=== PATIENT | female | born 1945 | race Caucasian/White ===

== ENCOUNTER 2022-02-04 12:56 | Outpatient (CLI) | payer MEDICARE, OTHER, SELFPAY ==
--- OUTSIDE RECORDS SUMMARY | 2022-02-04 12:59 | XMS_ITS | Encounter Summary ---
:1945 Author Organization [facility] Address [address] [place] [address] Care Team Providers Name Role Phone Abida Martell MD Primary Care Provider Reason for Visit Procedure/Equipment (Routine) - Incomplete Specialty Diagnoses / Procedures Referred By Contact Refer red To Contact Diagnoses Right shoulder pain, unspecified chronicity Saeed Ellis MD Procedures XR Shoulder Rt 2+ Views [address] [place], [place] [address] Referral ID Status Reason Start Date Expiration Date Visits V isits Requested Authorized [id number] Incomplete 01/24/2019 04/24/2020 1 1 Encounter Details Date Type Department Care Team Description 01/24/2019 [facility]illary [facility] Saeed Ellis MD Right shoulder Procedure [address] D r pain, unspecified Drive [place], [place] [address] [phone] Social History Tobacco Use Types Packs/Day Years Used Date Smoking Tobacco: Former Cigarettes Quit : 08/13/2013 Smokeless Tobacco: Never Alcohol Use Standard Drinks/Week Comments Yes 7 (1 standard drink = 0.6 oz pure alcoho l) Sex Assigned at Date Recorded Not on file documented as of this encounter Plan of Treatment Not on filedocumented as of this encounter Procedures Procedure Name Priority Date/Time Associated Diagnosis Comme nts XR SHOULDER RT 2+ Routine 01/24/2019 1:44 PM Right shoulder pa in, Results for this VIEWS CDT unspecified procedure are i n chronicity the results section. documented in this encounter Results XR Shoulder Rt 2+ Views (01/24/2019 1:44 PM CDT) Anatomical Region Laterality Modality Upper Extremity, Shoulder Digital Radiog cleo Specimen (Source) Anatomical Location Collection Method / Collectio n Time Received Time / Laterality Volume Narrative 01/28/2019 12:37 PM CDT Radiographs of the right shoulder - 3 views (01/24/19): Demonstrates a healed clavicle fracture. She has significant prominence to that fracture. She has mild AC arthrosis and mild glenohumeral arthrosis. Saeed Ellis MD RAD GD documented in this encounter Visit Diagnoses Diagnosis Right shoulder pain, unspecified chronic ity documented in this encounter Care Teams Water Manager Relationship Specialty Start Date End Date Abida Martell MD PCP - General [address] [place] [address] documented as of this encounter
--- OUTSIDE RECORDS SUMMARY | 2022-02-04 12:59 | XMS_ITS | Encounter Summary ---
:1945 Author Organization [facility] Address [address] [place] [address] Care Team Providers Name Role Phone Abida Martell MD Primary Care Provider Reason for Referral (Routine) - Closed Specialty Diagnoses / Procedures Referred By Contact Refer red To Contact Diagnoses AC joint arthropathy Saeed Ellis MD Procedures Triamcinolone Acet Inj Nos: (per 10 mg) [address] [facility] [place], [place] [address] 1 Referral ID Status Reason Start Date Expiration Date Visits Requ ested Visits Authorized [id number] Closed 01/24/2019 04/24/2020 1 1 Procedure/Equipment (Routine) - Incomplete Specialty Diagnoses / Procedures Referred By Contact Refer red To Contact Diagnoses Right shoulder pain, unspecified chronicity Saeed Ellis MD Procedures XR Shoulder Rt 2+ Views [address] [place] [address] [place], [place] [address] Referral ID Status Reason Start Date Expiration Date Visits V isits Requested Authorized [id number] Incomplete 01/24/2019 04/24/2020 1 1 Reason for Visit Reason Comments Shoulder Problem right Encounter Details Date Type Department Care Team Description 01/24/2019 Office Visit [facility] Saeed Ellis MD AC joint arthropathy (Primary Dx); [facility] [address] Right shoulder pain, unspecified chronic ity [address] [facility] [place] [id number] [phone] (Wo rk) Social History Tobacco Use Types Packs/Day Years Used Date Smoking Tobacco: Former Cigarettes Quit : 08/13/2013 Smokeless Tobacco: Never Alcohol Use Standard Drinks/Week Comments Yes 7 (1 standard drink = 0.6 oz pure alcoho l) Sex Assigned at Date Recorded Not on file documented as of this encounter Last Filed Vital Signs Vital Sign Reading Time Taken Comments Blood Pressure - - Pulse - - Temperature - - Respiratory Rate - - Oxygen Saturation - - Inhaled Oxygen Concentration - - Weight 70.3 kg (155 lb) 01/24/2019 1:01 PM CDT Height 161.3 cm (5' 3.5) 01/24/2019 1:01 PM CDT Body Mass Index 27.03 01/24/2019 1:01 PM CDT documented in this encounter Patient Instructions Patient InstructionsCherry Obrien - 01/24/2019 1:[address] Saeed Ellis MD Orthopaedic Surgeon Ribbon Inker: Cherry Obrien Please call Cherry for all administrative questions at [phone] Orthopaedic Software Lead: JOSELO Carmona LPN Please contact Nancy for all medical questions at [phone] Medication Requests: Prescriptions are not filled on Weekends or on Weekdays after 3:00PM For all medication refills: Request a refill using YesWeAd[facility] or contact your Pharmacy The right shoulder was injected with Kenalog-40 and lidocaine. Avoid Strenuous Activity for the remainder of the day and avoid activities that cause pain for one to two weeks following the injection. Signs and Symptoms to watch for: If you have any redness, warmth or increasing pain at the site of the injection or develop a fever, please call [phone]..You've just had a steroid (cortisone) injection: Steroid injections are among the most frequently used treatments in orthopedics. Steroid injections are used for a wide range of conditions from arthritis, to bursitis, to tennis elbow, etc. The two most common side-effects of steroid shots called ???steroid flare??? and ???steroid flush. Steroid flare can cause an increase in symptoms in the first 24-48 hours after a steroid injection. This will usually subside within a few days, and is a cause from the additional fluid in your joint, and the trauma to the joint lining from the injection. This pain usually subsides quickly and can be aided with an ice pack and over the counter anti-inflammatory medication. Steroid flush is a flushing sensation and redness of their face. This reaction is more common in women, but can occur in men as well, and is seen into up to 15 percent of patients. This can begin within a few hours of the injection and may last for a few days. It is not dangerous, and will resolve itself. Diabetic patients also can have their blood sugar levels affected. Patients with diabetes should carefully monitor their blood sugar as steroid can cause a temporary rise in their levels. Patients taking insulin should be especially careful, checking their blood sugar often and adjusting the insulin doses, if necessary. Steroid injections can only be repeated every 3 or 4 months. For some conditions there may also be alimited total number of times it is safe to repeat an injection. RISKS: Infection ?? Whenever there is a break in the skin, like when a needle is used to administer steroid, there domo chance of infection this is very unlikely to happen, usually would occur days after the injection.Signs and symptoms to watch for: fever, streaking redness, pus, drainage, foul odor, localized redness that continues to get worse, come to the office if symptoms are recognized during business hours, or proceed to the emergency room if symptoms are recognized after office hours. Skin Pigment Changes ?? Patients should also be aware that steroid may cause skin around the injection site to lighten. This is not harmful or long lasting. Loss of Fatty Tissue ?? This is one reason we limit the number of steroid injections administered. High doses of steroid can have detrimental effects on some tissues in the body, though due to the dosage we use the risk isextremely rare. When injected into fatty tissue, steroid can lead to a problem called fat atrophy. Fat atrophy causes loss of fatty tissue, which can lead to dimpling of the skin or the thinning out offat. Skin will feel thin. Patients who get steroid injections in the heel to treat plantar fasciitismay find walking painful as fat that usually cushions their steps may thin out. Tendon Rupture ?? Steroid can also cause weakening of tendons. This is one reason to limit the number of steroid injections administered. Thank you for enrolling in [facility]. Please follow the instructions below to securely access your online medical record. [facility] allows you to send messages to your doctor, view your test results, renewyour prescriptions, schedule appointments, and more. How Do I Sign Up? 1. In your Internet browser, go to [email or web address] 2. Click on the Enter activation code link under the New User? section. You will see the Activate your account! page. 3. Enter your activation code exactly as it appears below. You will not need to use this code after you???ve completed the sign-up process. If you do not sign up before the expiration date, you must request a new code. Activation Code: [email or web address] Expires: 02/23/2019 1:58 PM 4. Enter your last name and date of (mm/dd/yyyy) as indicated, then click Continue. You will be taken to the Let's set up your account page. 5. Create a username. This will be your [facility] login ID and cannot be changed, so think of one thatis secure and easy to remember. 6. Create a password. You can change your password at any time. 7. Enter your e-mail address. You will receive e-mail notification when new information is availablein [facility]. 8. Select your Security Questions and enter your answers. These can be used at a later time if you forget your password. 9. Check the box to accept the terms and conditions. Click Create your account. You can now view your medical record. Additional Information If you have questions, you can call [phone] to talk to our [facility] staff. Remember, [facility] is NOT to be used for urgent needs. For medical emergencies, dial 911. documented in this encounter Progress Notes Saeed Ellis MD - 01/24/2019 1:00 PM CDT Kathy Barajas [id number] 1945 [facility] Consultation 01/24/2019 Chief Complaint: Right Shoulder Pain History of Present Illness: Kathy Barajas is a 74 y.o. right hand dominant female who presents for initial evaluation of right shoulder pain. There is no history of trauma or injury. Five or six years ago she was thrown off a horse and had a clavicle fracture. That went on to heal uneventfully. She has had right shoulder pain for 2-3 years. She is not sure if it is related to the clavicle fracture. Previously she has had some injections in the shoulder with success. It bothers her with overhead activities. She cannot sleep onthat side. She has no real weakness in her shoulder, but certain reaching activities do create sharppain. She cannot reach across her body without getting right shoulder pain. The intake sheet was reviewed with the patient. This was up-to-date including medications, past surgical history and social history, as well as risk factors, complete review of systems and family health history and scanned into the electronic medical record. Physical Exam: General: The patient is a pleasant, cooperative female who appears much younger than her stated age of 74. Neuro: Answers questions appropriately. Alert and oriented x 3. Skin: Cool to touch. No erythema, ecchymosis, or lesions. Neck: (+) Some limitation of neck extension. Good flexion and llna-fa-zgeh rotation. Non tender in the paracervical musculature or the trapezius. Right Shoulder: (+) Tenderness over her right AC joint. Medial to that she has significant bony prominence from her healed clavicle fracture. Symmetric forward flexion. Symmetric external rotation. Demonstrates very good external rotation and abduction rotator cuff strength without any apparent pain. (+) Adduction across her body causes pain and localizes to her AC joint. Negative Grey Eagle's test. No click or clunk in the subacromial space. Imaging: Radiographs of the right shoulder - 3 views (01/24/19): Demonstrates a healed clavicle fracture. She has significant prominence to that fracture. She has mild AC arthrosis and mild glenohumeral arthrosis. I ordered and independently reviewed and interpreted the imaging studies above; the results were discussed with the patient. Assessment: Diagnosis and Associated Orders ICD-10-CM 1. AC joint arthropathy M19.019 Inject/Asp Major Joint/Bursa Hip Knee Shoulder Triamcinolone Acet Inj Nos: (per 10 mg) 2. Right shoulder pain, unspecified chronicity M25.511 XR Shoulder Rt 2+ Views Painful right AC joint arthrosis. Plan: I discussed with the patient, in detail, the risks and benefits associated with the different treatment options available to them including conservative management (rest, activity modification, and oral pain medication), physical therapy, steroid injection versus visco supplementation, and surgical int ervention. The patient voiced understanding of the information discussed, and at this time, elects to proceed with an injection. She will let us know of her progress. Procedure: Right Shoulder AC Joint Injection After sterile preparation, the patient's right shoulder AC joint was injected with 0.5 mL of triamcinolone 40 mg/mL and 0.5 mL of 1% lidocaine. The patient tolerated the procedure without difficulty. Scribe Disclosure: Scribed for Saeed Ellis MD by Gadiel Vieyra medical transcription supervisor. I, Saeed Ellis MD, have personally reviewed and agree with the information entered by the scribe. Saeed Ellis MD documented in this encounter Plan of Treatment Not on filedocumented as of this encounter Results XR Shoulder Rt 2+ [...] documented in this encounter Visit Diagnoses Diagnosis AC joint arthropathy - Primary Unspecified disorder of shoulder joint Right shoulder pain, unspecified chronic ity Right shoulder pain, unspecified chronic ity documented in this encounter Care Teams Cyber Security Systems Engineer Relationship Specialty Start Date End Date Abida Martell MD PCP - General 11/28/12 [address] [place] [address] (work) documented as of this encounter
--- OUTSIDE RECORDS SUMMARY | 2022-02-04 12:59 | XMS_ITS | Encounter Summary ---
:1945 Author Organization [facility] Address [address] [address] Care Team Providers Name Role Phone Abida Martell MD Primary Care Provider Encounter Details Date Type Department Care Team Description 08/16/2019 Hospital Encounter [place] [facility] [address] [place] [address] Social History Tobacco Use Types Packs/Day Years Used Date Smoking Tobacco: Former Cigarettes Quit : 08/13/2013 Smokeless Tobacco: Never Alcohol Use Standard Drinks/Week Comments Yes 7 (1 standard drink = 0.6 oz pure alcoho l) Sex Assigned at Date Recorded Not on file documented as of this encounter Medications at Time of Discharge Medication Sig Dispensed Refills Start Date End Date ATENolol (AKA TENORMIN) 25 MG Take by mouth 0 tablet daily (every 24 hours). hydrochlorothiazide 12.5 MG Indications: PN: 0 capsule HYDROcodone-acetaminophen Take 1-2 tablets 40 tablet 0 07/26 (NORCO) 5-325 MG tablet by mouth every 6 hours as needed for Pain. Biotin 10 MG CAPS Take by mouth. 0 08/15/2015 Calcium Carbonate-Vitamin D Take by mouth. 0 12/2609/09/2021 (CALCIUM 600+D OR) Cholecalciferol 2000 UNITS Take by mouth. 0 03/1809/09/2021 documented as of this encounter Plan of Treatment Not on filedocumented as of this encounter Visit Diagnoses Not on filedocumented in this encounter Care Teams Clay Thrower Relationship Specialty Start Date End Date Abida Martell MD PCP - General 8/5/13 [address] [facility] [address] documented as of this encounter
--- OUTSIDE RECORDS SUMMARY | 2022-02-04 12:59 | XMS_ITS | Encounter Summary ---
:1945 Author [facility] Address [address] [facility] [place] [address] Care Team Providers Name Role Phone Abida Martell MD Primary Care Provider Reason for Referral (Routine) - New Request Specialty Diagnoses / Procedures Referred By Contact Refer red To Contact Diagnoses Chronic pain of right ankle Saeed Ellis MD Procedures Triamcinolone Acet Inj Nos: (per 10 mg) [address] [place] [address] Referral ID Status Reason Start Date Expiration Date Visits V isits Requested Authorized [id number] New Request 09/10/2021 12/10/2022 1 1 Procedure/Equipment (Routine) - Incomplete Specialty Diagnoses / Procedures Referred By Contact Refer red To Contact Diagnoses Glenohumeral arthritis Saeed Ellis MD Procedures FL Injection Shoulder Rt [address] [place], [place] [address] Referral ID Status Reason Start Date Expiration Date Visits V isits Requested Authorized [id number] Incomplete 09/09/2021 12/09/2022 1 1 Procedure/Equipment (Routine) - Incomplete Specialty Diagnoses / Procedures Referred By Contact Refer red To Contact Diagnoses Chronic pain of right ankle Saeed Ellis MD Procedures XR Ankle Rt 3 Views [address] [place] [address] Referral ID Status Reason Start Date Expiration Date Visits V isits Requested Authorized [id number] Incomplete 09/09/2021 12/09/2022 1 1 Procedure/Equipment (Routine) - Incomplete Specialty Diagnoses / Procedures Referred By Contact Refer red To Contact Diagnoses Chronic pain of both shoulders Saeed Ellis MD Procedures XR Shoulder Rt 2+ Views [address] [place] [address] [place] [address] Referral ID Status Reason Start Date Expiration Date Visits V isits Requested Authorized [id number] Incomplete 09/09/2021 12/09/2022 1 1 Procedure/Equipment (Routine) - Incomplete Specialty Diagnoses / Procedures Referred By Contact Refer red To Contact Diagnoses Chronic pain of both shoulders Saeed Ellis MD Procedures XR Shoulder Lt 2+ Views [address] [place] [address] [place] [address] Referral ID Status Reason Start Date Expiration Date Visits V isits Requested Authorized [id number] Incomplete 09/09/2021 12/09/2022 1 1 Reason for Visit Reason Comments Shoulder Problem Bilateral Encounter Details Date Type Department Care Team Description 09/09/2021 Office Visit [facility] Saeed Ellis MD Shoulder arthritis (Primary Dx); [facility] [address] [place] [address] Post-traumatic osteoarthritis of right a nkle; [address] [place], [place] Chronic pain of both shoulde rs; [place] [address] Chronic pain of right ankle; [address] Glenohumeral arthritis Social History Tobacco Use Types Packs/Day Years Used Date Smoking Tobacco: Former Cigarettes Quit : 08/13/2013 Smokeless Tobacco: Never Alcohol Use Standard Drinks/Week Comments Yes 7 (1 standard drink = 0.6 oz pure alcoho l) Sex Assigned at Date Recorded Not on file documented as of this encounter Patient Instructions Patient InstructionsMary Carmen Schmid - 09/09/2021 10:[address] Saeed Ellis MD Orthopaedic Surgeon Medication Requests: Prescriptions are not filled on weekends or on weekdays after 3:00 PM The right ankle was injected with Kenalog-40 and lidocaine. Avoid Strenuous Activity for the remainder of the day and avoid activities that cause pain for one to two weeks following the injection. Signs and Symptoms to watch for: If you have any redness, warmth or increasing pain at the site of the injection or develop a fever, please call [phone] You've just had a steroid (cortisone) injection: Steroid [...] safe to repeat an injection. RISKS: Infection Whenever there is a break in the skin, like when a needle is used to administer steroid, there is a chance of infection this is very unlikely to happen, usually would occur days after the injection. Signs and symptoms to watch for: fever, streaking redness, pus, drainage, foul odor, localized redness that continues to get worse, come to the office if symptoms are recognized during business hours, or proceed to the emergency room if symptoms are recognized after office hours. Skin Pigment Changes Patients should also be aware that steroid may cause skin around the injection site to lighten. Thisis not harmful or long lasting. Loss of Fatty Tissue This is one reason we limit the number of steroid injections administered. High doses of steroid canhave detrimental effects on some tissues in the body, though due to the dosage we use the risk is extremely rare. When injected into fatty tissue, steroid can lead to a problem called fat atrophy. Fat atrophy causes loss of fatty tissue, which can lead to dimpling of the skin or the thinning out of fat. Skin will feel thin. Patients who get steroid injections in the heel to treat plantar fasciitis may find walking painful as fat that usually cushions their steps may thin out. Tendon Rupture Steroid can also cause weakening of tendons. This is one reason to limit the number of steroid injections administered. documented in this encounter Progress Notes Saeed Ellis MD - 09/09/2021 10:10 AM CDT Kathy Barajas [id number] 1945 Orthopaedic Surgery Follow-Up 09/09/2021 History of Present Illness: Kathy Barajas is a 76 y.o. female who presents to me today for follow-up evaluation of both shoulders. She would also like me to evaluate her right ankle. The patient has had shoulder pain, felt to be because of AC arthrosis, and she has had a couple of injections in her right shoulder AC joint with good relief. The last injection was on 11/13/2019. She reports continued shoulder pain. She is having difficulty reaching behind her back and doing certain activities and she gets a paid deep in her shoulder. She does not feel it is the same thing that she had previously. Her right shoulder is much worse than the left but she has some achiness in the left shoulder that keeps her awake at nighttime. She denies shooting pains down into either upper extremity and has no numbness, weakness, or tingling. The patient is also status post ORIF of her right ankle and in the past, we removed a syndesmosis screw. She reports some clicking in that right ankle, which is very intermittent. It happens when she twists, on occasion, and it can be tender and sore for her. There is no actual locking symptomatology but she gets a painful click. She has not noticed swelling and she has no weakness. Physical Exam: General: The patient is in no acute distress. Neuro: Answers questions appropriately. Alert and oriented x 3. Skin: Cool to touch. No erythema, ecchymosis, or lesions. Bilateral Shoulder: On examination today, she has a normal appearance to both shoulders. Prominent distal clavicle on the right more so than on the left. No specific tenderness over her AC joint today.She has full symmetric forward flexion and symmetric external rotation but some limitation of internal rotation on the right. Excellent rotator cuff strength to resisted external rotation and resisted abduction. Negative belly press. Negative lift-off test bilaterally. Imaging: Radiographs of the right ankle - 3 views (09/09/21): AP, lateral, and mortise views demonstrate some screws in the distal tibia consistent with an ORIF plateau-type, tibial plafond-type fracture. She also has screws and a plate in her fibula. No dramaticspurs present in the ankle joint itself and no significant joint space narrowing. Radiographs of the left shoulder - 3 views (09/09/21): AP, outlet, and axillary lateral demonstrate early glenohumeral degenerative changes with mild changes at her AC joint. There are no acute changes noted. Radiographs of the right shoulder - 3 views (09/09/21): AP, outlet, and axillary lateral demonstrate moderate glenohumeral arthrosis changes as well as AC arthrosis on the right. There are no acute changes noted. I ordered and independently reviewed and interpreted the imaging studies above; the results were discussed with the patient. Assessment: Diagnosis and Associated Orders ICD-10-CM 1. Shoulder arthritis M19.019 bilateral, right greater than left 2. Post-traumatic osteoarthritis of right ankle M19.171 3. Chronic pain of both shoulders M25.511 XR Shoulder Lt 2+ Views G89.29 XR Shoulder Rt 2+ Views M25.512 4. Chronic pain of right ankle M25.571 XR Ankle Rt 3 Views G89.29 5. Glenohumeral arthritis M19.019 FL Injection Shoulder Rt Plan: 1. With respect to her shoulders, we talked about the role of possible intraarticular injection versus injection of her AC joint and she was interested in trying an intraarticular injection on the right. She will be sent, therefore, for an intraarticular right shoulder injection under fluoroscopy and she will let us know of her progress. 2. We discussed options and I suggested an injection of her right ankle and she agreed. If she does not get relief from the catching and clicking, I would probably refer her on to one of our foot and ankle specialists for further evaluation. Procedure: Right Ankle Cortisone Injection: After sterile preparation, the patient's right ankle was injected with 1mL of Kenalog 40mg/mL and 3mL of 1% lidocaine. She tolerated the procedure well. Scribe Disclosure: ITierra, am serving as a scribe to document services personally performed by Saeed Ellis MD at this visit, based upon the provider's statements to me. All documentation has been reviewed by the aforementioned provider prior to being entered into the official medical record. Portions of this medical record were completed by a scribe. UPON MY REVIEW AND AUTHENTICATION BY ELECTRONIC SIGNATURE, this confirms (a) I performed the applicable clinical services, and (b) the recordis accurate. Saeed Ellis MD documented in this encounter Plan of Treatment Not on filedocumented as of this encounter Results FL Injection Shoulder Rt (09/25/2021 1:44 PM CDT) Anatomical Region Laterality Modality Upper Extremity, Shoulder Radiographic I maging Specimen (Source) Anatomical Collection Method Collection Time Re ceived Time Location / / Volume Laterality 09/25/2021 1:09 PM CDT Impressions 09/25/2021 2:30 PM CDT FINDINGS: The procedure, goals, risks and benefits of the procedure were discussed with the patient, who gave full written and verbal consent to proceed. The location of the procedure was confirmed, the skin initialed, and pause for cause per formed. Using sterile technique, local anesthesia and fluoroscopic guidance a 22 gauge needle was advanced into the right shoulder glenohumeral joint. Intraarticu lar location of the needle tip was confi rmed with the injection of 1 mL of Isovue. Subsequently, 40 mg of triamcinolone (40 mg/mL), and 5 mL 0.5% ropivacaine was administered without complication. The patient rated their pain as a 6/10 p rior to the injection, and 0/10 immediately following the injection. Procedure Note Salima Gamino PA-C - 09/25/2021Format ting of this note might be different from the original. IMPRESSION FINDINGS: The procedure, goals, risks an d benefits of the procedure were discussed with the patient, who gave full written and verbal consent to proceed. The location of the procedure was confirmed, the skin initialed, and pause for cause performed. Using rajinder rile technique, local anesthesia and fluoroscopic guidance a 22 gauge needle was advanced into the right shoulder glenohumeral joint. Intraarticular location of the needle tip was confirmed with the injection of 1 mL of Isovue. Subsequently, 40 mg of triamcinolone (40 mg/mL), and 5 mL 0.5% ropivacaine was administered without complication. The patient rated their pain as a 6/10 p rior to the injection, and 0/10 immediately following the injection. Saeed Ellis MD RAD FL XR Shoulder Rt 2+ Views (09/09/2021 10:19 AM CDT) Anatomical Region Laterality Modality Upper Extremity, Shoulder Digital Radiog cleo Specimen (Source) Anatomical Location Collection Method / Collectio n Time Received Time / Laterality Volume Narrative 09/15/2021 2:34 PM CDT Radiographs of the left shoulder - 3 views (09/09/21): AP, outlet, and axillary lateral demonst rate early glenohumeral degenerative changes with mild changes a t her AC joint. There are no acute changes noted. ?? Radiographs of the right shoulder - 3 vi ews (09/09/21): AP, outlet, and axillary lateral demonst rate moderate glenohumeral arthrosis changes as well as AC arthrosi s on the right. There are no acute changes noted. ?? Saeed Ellis MD RAD GD XR Shoulder Lt 2+ Views (09/09/2021 10:19 AM CDT) Anatomical Region Laterality Modality Upper Extremity, Shoulder Digital Radiog cleo Specimen (Source) Anatomical Location Collection Method / Collectio n Time Received Time / Laterality Volume Narrative 09/15/2021 2:34 PM CDT Radiographs of the left shoulder - 3 views (09/09/21): AP, outlet, and axillary lateral demonst rate early glenohumeral degenerative changes with mild changes a t her AC joint. There are no acute changes noted. ?? Radiographs of the right shoulder - 3 vi ews (09/09/21): AP, outlet, and axillary lateral demonst rate moderate glenohumeral arthrosis changes as well as AC arthrosi s on the right. There are no acute changes noted. ?? Saeed HESTER XR Ankle Rt 3 Views (09/09/2021 10:19 AM CDT) Anatomical Region Laterality Modality Lower Extremity, Ankle, Foot & Ankle Dig ital Radiography Specimen (Source) Anatomical Location Collection Method / Collectio n Time Received Time / Laterality Volume Narrative 09/15/2021 2:34 PM CDT Radiographs of the right ankle - 3 views (09/09/21): AP, lateral, and mortise views demonstra te some screws in the distal tibia consistent with an ORIF plateau-type, ti bial plafond-type fracture. She also has screws and a plate in her fibul a. No dramatic spurs present in the ankle joint itself and no significan t joint space narrowing. Saeed HESTER documented in this encounter Visit Diagnoses Diagnosis Shoulder arthritis - Primary Unspecified arthropathy, shoulder region Post-traumatic osteoarthritis of right a nkle Chronic pain of both shoulders Pain in joint, shoulder region Chronic pain of right ankle Glenohumeral arthritis Other specified disorders of shoulder balbir int Chronic pain of both shoulders Pain in joint, shoulder region Chronic pain of right ankle Glenohumeral arthritis Other specified disorders of shoulder balbir int documented in this encounter Care Teams Bsw Relationship Specialty Start Date End Date Abida Martell MD PCP - General 11/[address] [place] [address] documented as of this encounter
--- OUTSIDE RECORDS SUMMARY | 2022-02-04 12:59 | XMS_ITS | Encounter Summary ---
:1945 [facility] Address [address] [place] [address] Care Team Providers Name Role Phone Abida Martell MD Primary Care Provider Reason for Visit Procedure/Equipment (Routine) - Incomplete Specialty Diagnoses / Procedures Referred By Contact Refer red To Contact Diagnoses Glenohumeral arthritis Saeed Ellis MD Procedures FL Injection Shoulder Rt [address] [facility] [place] [address] Referral ID Status Reason Start Date Expiration Date Visits V isits Requested Authorized [id number] Incomplete 09/09/2021 12/09/2022 1 1 Encounter Details Date Type Department Care Team Description 09/25/2021 Ancillary [facility] Saeed Ellis, Glenohumeral Procedure [address] [place] [phone] Social History Tobacco Use Types Packs/Day Years [...] Name Priority Date/Time Associated Diagnosis Comme nts FL INJECTION Routine 09/25/2021 1:44 PM Glenohumeral Results f or this SHOULDER RT CDT arthritis procedure are i n the results section. documented in this encounter Results FL Injection Shoulder Rt [...] and 0/10 immediately following the injection. Saeed HERNANDEZ HI documented in this encounter Visit Diagnoses Diagnosis Glenohumeral arthritis Other specified disorders of shoulder ablbir int documented in this encounter Administered Medications Inactive Administered Medications - up to 3 most recent administrations Medication Order MAR Action Action Date Dose Rate Site iopamidol (ISOVUE-M 200) 41 % Given 09/25/2021 1:10 PM CDT 2 mL intrathecal injection 2 mL 2 mL, Intra-articular, ONCE, On Afua 09/25/21 at 1330, For 1 dose triamcinolone acetonide (KENALOG-40) 40 MG/ML Given 1:10 PM CDT 40 mg injection 40 mg 40 mg, Intracapsular, ONCE, On Afua 09/25/21 at 1330, For 1 dose documented in this encounter Care Teams Stone Finisher Relationship Specialty Start Date End Date Abida Martell MD PCP - General [address] [place] [address] documented as of this encounter
--- OUTSIDE RECORDS SUMMARY | 2022-02-04 12:59 | XMS_ITS | Clinical Summary ---
:1945 Author Organization [facility] Address [address] [place] [address] Care Team Providers Name Role Phone Abida Martell MD Primary Care Provider Source Comments You are receiving this document as you are listed as the primary care provider,follow-up provider, or the patient has been referred to you for consultation.This is in compliance with the Medicare and Medicaid EHR Incentive Program,which states Providers who transition their patient to another setting of careor provider of care or refers their patient to another provider of care shouldprovide summarycare record for each transition of care or referral. Feebbo Allergies Active Allergy Reactions Severity Noted Date Comments Celecoxib Rash 01/23/2013 Lisinopril 01/23/2013 PN: chest press ure Sulfa Antibiotics 11/28/2012 PN: tongue got sore Medications Medication Sig Dispensed Refills Start Date End Date Status ATENolol (AKA TENORMIN) 25 Take by mouth 0 2 Active MG tablet daily (every 24 hours). hydrochlorothiazide 12.5 Indications: 0 08/11/2012 Active MG capsule PN: HYDROcodone-acetaminophen Take 1-2 40 tablet 0 08/15/2015 Active (NORCO) 5-325 MG tablet tablets by mouth every 6 hours as needed for Pain. Active Problems No known active problems Social History Tobacco Use Types Packs/Day Years Used Date Smoking Tobacco: Former Cigarettes Quit : 08/13/2013 Smokeless Tobacco: Never Alcohol Use Standard Drinks/Week Comments Yes 7 (1 standard drink = 0.6 oz pure alcoho l) Sex Assigned at Date Recorded Not on file Last Filed Vital Signs Vital Sign Reading Time Taken Comments Blood Pressure 171/90 01/18/2013 3:17 PM CDT Pulse - - Temperature - - Respiratory Rate - - Oxygen Saturation - - Inhaled Oxygen Concentration - - Weight 70.3 kg (155 lb) 01/24/2019 1:01 PM CDT Height 161.3 cm (5' 3.5) 01/24/2019 1:01 PM CDT Body Mass Index 27.03 01/24/2019 1:01 PM CDT Plan of Treatment Health Maintenance Due Date Last Done Comments Hep C Screening (Preventive 1945 Services) Medicare Annual Wellness 1945 Visit COVID-19 Vaccine (#1) 1945 Dexa 01/11/2009 Influenza (#1) 2021 01/24/2021, 12/15/2019, 02/01/2019, Additional history exists DTaP/Tdap/Td (3 - Tdap) 02/11/2031 02/11/2021, 12/03/2010, 12/22/2004, Additional history exists Pneumococcal 65+ Yrs Completed 12/02/2017, 09/03/2014, 08/15/2008 Zoster/Shingles Completed 05/20/2018, 12/02/2017, 04/22/2012 HepA Aged Out No longer eligib le based on patient 's age to complete this topic HepB Aged Out No longer eligib le based on patient 's age to complete this topic Hib Aged Out No longer eligib le based on patient 's age to complete this topic IPV (Polio) Aged Out No longer eligib le based on patient 's age to complete this topic MCV4 Aged Out No longer eligib le based on patient 's age to complete this topic Insurance Payer Benefit Plan / Subscriber ID Effective Dates Phone Addre ss Type Group MEDICARE MEDICARE MANAGED [id number] 2008-Present [phone] Medicare CARE MEDICA MEDICA MEDICA PRIME [id number] 2018-Present [phone] Medicare SOLUTION Kathy Barajas Personal/Family Self [address] [facility] [place] [address] Care Teams Warehouse Supervisor Relationship Specialty Start Date End Date Abida Martell MD PCP - General 11/28/[address] [facility] [address]
--- OUTSIDE RECORDS SUMMARY | 2022-02-04 12:59 | XMS_ITS | Encounter Summary ---
:1945 Author Organization [facility] Address [address] [place] [address] Care Team Providers Name Role Phone Abida Martell MD Primary Care Provider Reason for Referral (Routine) - Closed Specialty Diagnoses / Procedures Referred By Contact Refer red To Contact Diagnoses AC joint arthropathy Saeed Ellis MD Procedures Triamcinolone Acet Inj Nos: (per 10 mg) [address] [place], [place] [address] Referral ID Status Reason Start Date Expiration Date Visits Requ ested Visits Authorized [id number] Closed 11/13/2019 02/11/2021 1 1 Reason for Visit Reason Comments Shoulder Problem right Encounter Details Date Type Department Care Team Description 11/13/2019 Office Visit [facility] Saeed Ellis MD AC joint arthropathy CENTER [address] [place] [address] (Primary Dx) [address] [place], [place] [phone] (Wo rk) Social History Tobacco Use Types Packs/Day Years Used Date Smoking Tobacco: Former Cigarettes Quit : 08/13/2013 Smokeless Tobacco: Never Alcohol Use Standard Drinks/Week Comments Yes 7 (1 standard drink = 0.6 oz pure alcoho l) Sex Assigned at Date Recorded Not on file documented as of this encounter Patient Instructions Patient InstructionsWhNancy ivy, OA - 11/13/2019 1:[address] Saeed Ellis MD Orthopaedic Surgeon Medication Requests: Prescriptions are not filled on weekends or on weekdays after 3:00 PM The right shoulder was injected with Kenalog-20 and lidocaine. Avoid Strenuous Activity for the remainder of the day and avoid activities that cause pain for one to two weeks following the injection. Signs and Symptoms to watch for: If you have any redness, warmth or increasing pain at the site of the injection or develop a fever, please call [phone] You've just had a steroid (cortisone) injection: [...] limit the number of steroid injections administered. Consult with Jabari Sanchez MD or Jabari Liang MD for your right hip. documented in this encounter Progress Notes Saeed Ellis MD - 11/13/2019 1:20 PM CDT Kathy Barajas [id number] 1945 Orthopaedic Surgery Follow-Up 11/13/2019 History of Present Illness: Kathy Barajas is a 74 y.o. female who presents for follow-up regarding right shoulder. She has known AC arthropathy. Was last seen on 01/24/19. Had an injection of the AC joint with 7-8 months of relief. Is started to become bad again over the last couple of weeks. Still localized pain over the AC joint with some radiation out to the lateral shoulder. Her pain is worsened with overhead activity. She denies weakness in the shoulder. She has no new injury in that shoulder. Physical Exam: General: The patient is in no acute distress. Neuro: Answers questions appropriately. Alert and oriented x 3. Skin: Cool to touch. No erythema, ecchymosis, or lesions. Right Shoulder: She has a prominent distal clavicle. Very tender at the AC joint. She has pain with reaching behind her. Positive [place]'s. Rotator cuff strength appears intact. Assessment: Diagnosis and Associated Orders ICD-10-CM 1. 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 Right Shoulder Injection After sterile preparation, the patient's right shoulder AC joint was injected with 0.5 mL of Dhdgzic60ak/mL and 0.5mL of 1% lidocaine. The patient tolerated the procedure without difficulty. She will let us know if she has any further difficulty. Ultimately she may be a candidate for an arthroscopic distal clavicle excision. Scribe Disclosure: Scribed for Saeed Ellis MD by Monica Barajas medical cost consultant. I, Saeed Ellis MD, have personally reviewed and agree with the information entered by the scribe. Saeed Ellis MD documented in this encounter Plan of Treatment Not on filedocumented as of this encounter Visit Diagnoses Diagnosis AC joint arthropathy - Primary Unspecified disorder of shoulder joint documented in this encounter Care Teams Night Worker Relationship Specialty Start Date End Date Abida Martell MD PCP - General 11/[address] [place] [address] documented as of this encounter
--- OUTSIDE RECORDS SUMMARY | 2022-02-04 12:59 | XMS_ITS | Encounter Summary ---
:1945 Author Organization [facility] Address [address] [place] [address] Care Team Providers Name Role Phone Abida Martell MD Primary Care Provider Reason for Visit Procedure/Equipment (Routine) - Incomplete Specialty Diagnoses / Procedures Referred By Contact Refer red To Contact Diagnoses Chronic pain of both shoulders Saeed Ellis MD Procedures XR Shoulder Rt 2+ Views [address] [place], [place] [address] Referral ID Status Reason Start Date Expiration Date Visits V isits Requested Authorized [id number] Incomplete 09/09/2021 12/09/2022 1 1 Encounter Details Date Type Department Care Team Description 09/09/2021 Ancillary [facility] Saeed Ellis MD Chronic pain of Procedure [address] [place] [address] [phone] Social History Tobacco Use Types Packs/Day Years [...] Date/Time Associated Diagnosis Comme nts XR SHOULDER LT 2+ Routine 09/09/2021 10:19 AM Chronic pain of both Results for this VIEWS CDT shoulders procedure are i n the results section. XR SHOULDER RT 2+ Routine 09/09/2021 10:19 AM Chronic pain of both Results for this VIEWS CDT shoulders procedure are i n the results section. documented in this encounter Results XR Shoulder Rt 2+ Views (09/09/2021 10:19 [...] acute changes noted. ?? Saeed HESTER XR Shoulder Lt 2+ Views (09/09/2021 10:19 [...] no acute changes noted. ?? Saeed HESTER documented in this encounter Visit Diagnoses Diagnosis Chronic pain of both shoulders Pain in joint, shoulder region documented in this encounter Care Teams Outreach Assistant Relationship Specialty Start Date End Date Abida Martell MD PCP - General [address] [place] [address] documented as of this encounter
--- OUTSIDE RECORDS SUMMARY | 2022-02-04 12:59 | XMS_ITS | Encounter Summary ---
:1945 Author Organization [facility] Address [address] [place] [address] Care Team Providers Name Role Phone Abida Martell MD Primary Care Provider Reason for Visit Procedure/Equipment (Routine) - Incomplete Specialty Diagnoses / Procedures Referred By Contact Refer red To Contact Diagnoses Chronic pain of right ankle Saeed Ellis MD Procedures XR Ankle Rt 3 Views 8[address] [facility] [place] [address] Referral ID Status Reason Start Date Expiration Date Visits V isits Requested Authorized [id number] Incomplete 09/09/2021 12/09/2022 1 1 Encounter Details Date Type Department Care Team Description 09/09/2021 Ancillary [facility] Saeed Ellis MD Chronic pain of Procedure [address] [facility] [address] [facility] [place] [address] [phone] Social History Tobacco Use Types Packs/Day Years [...] Priority Date/Time Associated Diagnosis Comme nts XR ANKLE RT 3 VIEWS Routine 09/09/2021 10:19 AM Chronic pain o f Results for this CDT right ankle procedure are i n the results section. documented in this encounter Results XR Ankle Rt 3 Views (09/09/2021 10:19 [...] no significan t joint space narrowing. Saeed Ellis MD RAD GD documented in this encounter Visit Diagnoses Diagnosis Chronic pain of right ankle documented in this encounter Care Teams Radiology Equipment Servicer Relationship Specialty Start Date End Date Abida Martell MD PCP - General [address] [place] [address] documented as of this encounter
--- NOTE | 2022-02-04 13:00 | CRLHL7_ITS ---
For Patients: As a result of the Century Cures Act, medical imaging exams and procedure reports are released immediately into your electronic medical record. You may view this report before your referring provider. If you have questions, please contact your health care provider. INDICATION: Low back and right back pain. COMPARISON: None. TECHNIQUE: Sagittal T1, T2, and STIR sequences. Axial T1 and T2 weighted sequences. FINDINGS: Normal vertebral body alignment. No fractures. No vertebral body loss of height. No spondylolisthesis. No ligamentous injury. No suspicious osseous lesions. Number conus terminates at L1-2. T12-L1: No spinal canal neural foraminal narrowing. L1-2: Mild disc degeneration. No narrowing of spinal canal. No neural foraminal narrowing. L2-3: Disc degeneration and posterior disc bulge. Adcd-pr-xkbtscvi narrowing of spinal canal. Mild narrowing of bilateral foramina. Most arthropathy. L3-4: Disc degeneration and posterior disc bulge. Combined with ligamentum flavum facet hypertrophy, there is moderate severe narrowing of spinal canal. Bilateral subarticular recess narrowing with impingement of the traversing L4 nerve roots. Moderate bilateral foraminal narrowing. Potential impingement of the L3 nerve roots. Mild facet arthropathy. L4-5: Postoperative changes. No narrowing of spinal canal. No neural foraminal narrowing. L5-S1: No narrowing of spinal canal. No impingement of the traversing S1 nerve roots. No neural foraminal narrowing. Degenerative changes of the SI joints. IMPRESSION: 1. Normal alignment. No fractures. 2. Lumbar spondylosis. 3. Postop changes L4-5 and L5-S1 4. At L2-3, disc degeneration and posterior disc bulge. Mild to moderate narrowing the spinal canal. Mild narrowing above the neuroforamina 5. At L3-4, moderate to severe narrowing of the spinal canal. Impingement of the traversing L4 nerve roots. Moderate bilateral neural foraminal narrowing. Potential impingement of the L3 nerve roots. 6. No spinal canal or neural foraminal narrowing at the remaining levels Dictated by Miguel Llanes MD @ 02/05/2022 1:49:06 PM (Electronically Signed)
--- OUTSIDE RECORDS SUMMARY | 2022-02-04 13:00 | XMS_ITS | Encounter Summary ---
:1945 Author Organization [facility] Address [address] [place] [address] Care Team Providers Name Role Phone Abida Martell MD Primary Care Provider Encounter Details Date Type Department Care Team Description 11/05/2015 Imaging [facility] Aftercare following surgery of [address] [facility] [address] the musculoskeletal system [place], [place] [address] Social History Tobacco Use Types Packs/Day Years Used Date Smoking Tobacco: Never Assessed Sex Assigned at Date Recorded Not on file documented as of this encounter Plan of Treatment Not on filedocumented as of this encounter Procedures Procedure Name Priority Date/Time Associated Diagnosis Comme nts XR TOE RT 1ST Routine 11/05/2015 11:38 Aftercare following Res ults for this GREAT 3 VIEWS AM CDT surgery of the procedure ar e in musculoskeletal system the r esults section. documented in this encounter Results XR Toe Rt 1st Great (11/05/2015 11:38 AM CDT) Anatomical Region Laterality Modality Lower Extremity, Foot, Foot & Ankle Othe r Specimen (Source) Anatomical Location Collection Method / Collectio n Time Received Time / Laterality Volume Narrative 11/13/2015 12:46 PM CDT Three views coned right hallux radiographs. Patient is approximately 12 weeks status post ORIF of comminuted intraarticular head of proximal phalangeal fracture. Noted is anatomic alignment to the IPJ as well as the head of the proximal phalanx. There is good bony incorporation at the fracture site. They are indistinct. Mild sclerosi s of the distal phalanx. Radiographic Impression: 12 weeks status post ORIF comminuted displaced intraarticular fracture head of proximal phalanx with excellent bony incorporation and anatomic alignment. Procedure Note Alonso Gutierrez, DPM - 12/23/2015Format ting of this note might be different from the original. Three views coned right hallux radiograp hs. Patient is approximately 12 weeks status post ORIF of comminuted intraarticular head of proximal phalangeal fracture. Noted is anatomic alignment to the IPJ as well as the head of the proximal phalanx. There is good bony incorporation at the fracture site. They are indistinct. Mild sclerosi s of the distal phalanx. Radiographic Impression: 12 weeks status post ORIF comminuted displaced intraarticular fracture head of proximal phalanx with excellent bony incorporation and anatomic alignment. Alonso Gutierrez DPM RAD GD documented in this encounter Visit Diagnoses Diagnosis Aftercare following surgery of the [facility] los[facility] system Aftercare following surgery of the [facility] loskeletal system, NEC documented in this encounter Care Teams Director Of Vocational Training Relationship Specialty Start Date End Date Abida Martell MD PCP - General [address] [place] [address] documented as of this encounter
--- OUTSIDE RECORDS SUMMARY | 2022-02-04 13:00 | XMS_ITS | Encounter Summary ---
:1945 Author Organization [facility] Address [address] [place] [address] Care Team Providers Name Role Phone Abida Martell MD Primary Care Provider Encounter Details Date Type Department Care Team Description 01/18/2013 Imaging [facility] Thumb pain [address] [place], [place] [address] Social History Tobacco Use Types Packs/Day Years Used Date Smoking Tobacco: Never Assessed Sex Assigned at Date Recorded Not on file documented as of this encounter Plan of Treatment Not on filedocumented as of this encounter Procedures Procedure Name Priority Date/Time Associated Diagnosis Comme nts XR FINGER RT THUMB Routine 01/18/2013 3:24 PM Thumb pain Res ults for this 2+ VIEWS CDT procedure are i n the results section. 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 ??There are also changes of osteoarthritis of th e IP and to a lesser extent MP joints. Narrative 01/30/2013 7:41 AM CDT Right thumb. ?? Indications: ??Pain. Right thumb: ??There are minimal changes of osteoarthritis of the carpometacarpal joint. Procedure Note Pablo Anderson - 10/12/2015 Right thumb. Indications: Pain. Right thumb: There are minimal changes o f osteoarthritis of the carpometacarpal joint. Pablo Stout RAD GD documented in this encounter Visit Diagnoses Diagnosis Thumb pain Pain in limb documented in this encounter Care Teams Clinical Research Assistant Relationship Specialty Start Date End Date Abida Martell MD PCP - General [address] [place] [address] documented as of this encounter
--- OUTSIDE RECORDS SUMMARY | 2022-02-04 13:00 | XMS_ITS | Encounter Summary ---
:1945 Author Organization [facility] Address [address] [place] [address] Care Team Providers Name Role Phone Unavailable Primary Care Provider Unavailable Reason for Visit Reason Comments Post Op Exam Clavicle Injury Encounter Details Date Type Department Care Team Description 03/03/2012 Office Visit [facility] Eric Ellis MD Unspecified part of closed fracture of c lavicle; CENTER [address] [place] [address] Unspecified closed fracture of ankle [address] [place], [place] [address] [phone] (Wo rk) Social History Tobacco Use Types Packs/Day Years Used Date Smoking Tobacco: Never Assessed Sex Assigned at Date Recorded Not on file documented as of this encounter Progress Notes Eric Ellis MD - 03/05/2012 9:32 AM CST Progress Notes signed by Eric Ellis MD at 03/10/12 361 Author: Eric Ellis MD Service: (none) Author Type: Physician Filed: 03/10/121728 Note Time: 03/05/12931 Status: Signed Manager Creative Services: Eric Ellis MD (Physician) NAME: KATHY MCKEON VISIT: [id number] DICTATING CLINICIAN: ERIC ELLIS MD JOB: [id number] [facility] JOB: [id number] LOC: 3711 CLINIC PROGRESS NOTE DATE OF VISIT: 03/03/2012 : 1945 HISTORY: The patient is a 67-year-old female who presents for follow up evaluation of her right ankle. She underwent an open reduction and internal fixation of her right ankle in [place] in December and she also had a clavicle fracture. She is doing very well with respect to both areas. She is now bearing full weight on that ankle and relates no pain. She has noticed slight prominence to one of the screws. With respect to her shoulder, she really does not have any pain in the area of her shoulder. She gets an achiness and throbbing, but no pain. Overall her function is improving in her right shoulder. PHYSICAL EXAMINATION: EXAM OF HER SHOULDER: She has exuberant callus in the area of her right clavicle fracture. There is no crepitus on motion noted. EVALUATION OF HER ANKLE: Demonstrates a well-healed incision. Her syndesmosis screw head is prominent but otherwise the plate and the other screws are minimally palpable. Her incision is well-healed. She has very good range of motion of her ankle. There is no instability I can appreciate. She has very good strength in dorsiflexion and plantar flexion. X-RAYS: X-rays were ordered and independently reviewed by me. Three views of the patient's right ankle including AP, lateral and a mortise view obtained. X-rays demonstrate well-fixed ankle fracture with progression to healing. Her syndesmosis is intact. AP and apical lordotic views of the right clavicle are obtained. The patient has abundant callus formation and evidence of very good early healing of that clavicle fracture. IMPRESSION: Healing right clavicle and right ankle fracture. PLAN: At this point, we talked about possibly removing her syndesmosis screw so as not to allow that to fracture. I think that her ankle fracture is adequately healed such that that could be done without compromise. That will be scheduled in the next couple of weeks at her convenience. IM: 03/05/2012 12:48:22 pm MT: 10 NICAL OPERATIONS SPECIALIST documented in this encounter Plan of Treatment Not on filedocumented as of this encounter Procedures Procedure Name Priority Date/Time Associated Diagnosis Comme nts XR ANKLE RT 3 VIEWS Routine 03/03/2012 11:23 AM Unspecified cl osed Results for this TECHNICAL OPERATIONS SPECIALIST fracture of ankle procedure are in the results section. XR CLAVICLE RT 2+ Routine 03/03/2012 11:23 AM Unspecified part of Results for this VIEWS TECHNICAL OPERATIONS SPECIALIST closed fracture of procedure are in clavicle the results section. documented in this encounter Results XR Clavicle Rt 2+ Views (03/03/2012 11:23 AM TECHNICAL OPERATIONS SPECIALIST) Anatomical Region Laterality Modality Upper Extremity, Chest, Shoulder Other Specimen (Source) Anatomical Location Collection Method / Collectio n Time Received Time / Laterality Volume Narrative 03/09/2012 1:58 PM TECHNICAL OPERATIONS SPECIALIST AP and apical lordotic views of the righ t clavicle are obtained. ??The patient has abundant callus formation an d evidence of very good early healing of that clavicle fracture. ?? NAE/jlk Procedure Note Eric Ellis MD - 10/12/2015Formattin g of this note might be different from the original. AP and apical lordotic views of the righ t clavicle are obtained. The patient has abundant callus formation an d evidence of very good early healing of that clavicle fracture. NAE/jlk Eric HERNANDEZ GD XR Ankle Rt 3 Views (03/03/2012 11:23 AM TECHNICAL OPERATIONS SPECIALIST) Anatomical Region Laterality Modality Lower Extremity, Ankle, Foot & Ankle Oth er Specimen (Source) Anatomical Location Collection Method / Collectio n Time Received Time / Laterality Volume Narrative 03/09/2012 1:58 PM TECHNICAL OPERATIONS SPECIALIST Three views of the patient's right ankle including AP, lateral and a mortise view obtained. ??X-rays demonstr ate well-fixed ankle fracture with progression to healing. ??Her morti se is intact. NAE/jlk Procedure Note Eric Ellis MD - 10/12/2015Formattin g of this note might be different from the original. Three views of the patient's right ankle including AP, lateral and a mortise view obtained. X-rays demonstrat e well-fixed ankle fracture with progression to healing. Her mortise is intact. NAE/jlk Eric HERNANDEZ GD documented in this encounter Visit Diagnoses Diagnosis Unspecified part of closed fracture of c lavicle Unspecified closed fracture of ankle documented in this encounter
--- OUTSIDE RECORDS SUMMARY | 2022-02-04 13:00 | XMS_ITS | Encounter Summary ---
:1945 Author Organization [facility] Address [address] [place] [address] Care Team Providers Name Role Phone Abida Martell MD Primary Care Provider Encounter Details Date Type Department Care Team Description 08/15/2015 Hospital Encounter [facility]er Gutierrez, DPM [facility] [address] [place] [address] [address] [place] [address] [place], [place] [address] [phone] Social History Tobacco Use Types Packs/Day Years Used Date Smoking Tobacco: Never Assessed Sex Assigned at Date Recorded Not on file documented as of this encounter Last Filed Vital Signs Vital Sign Reading Time Taken Comments Blood Pressure - - Pulse - - Temperature - - Respiratory Rate - - Oxygen Saturation - - Inhaled Oxygen Concentration - - Weight 67.6 kg (149 lb) 08/14/2015 9:14 AM CDT Height 160 cm (5' 3) 08/14/2015 9:14 AM CDT Body Mass Index 26.39 08/14/2015 9:14 AM CDT documented in this encounter Medications at Time of Discharge [...] MG CAPS Take by mouth. 0 08/15/2015 Biotin CAPS Take by mouth. 0 08/15/2015 Calcium Carbonate-Vitamin D Take by mouth. 0 12/2609/09/2021 (CALCIUM 600+D OR) Cholecalciferol 2000 UNITS Take by mouth. 0 03/1809/09/2021 HYDROcodone-acetaminophen Take 1-2 tablets 40 tablet 0 07/2611/01/2015 (aka NORCO) 5-325 MG tablet by mouth every 6 TABS hours as needed for Pain. documented as of this encounter Procedure Notes Alonso Gutierrez DPM - 08/15/2015 9:44 AM CDT Op Note signed by Alonso Gutierrez DPM at 08/19/151957 Author: Alonso Gutierrez DPM Service: (none) Author Type: Physician Filed: 08/19/151957 Note Time: 08/15/151527 Status: Signed Oracle Soa Developer: Alonso Gutierrez DPM (Physician) NAME: KATHY MCKEON MR#: [id number] CSN: [id number] AUTHENTICATING CLINICIAN: Alonso Gutierrez DPM CONFIRM #: [id number] LOC: 725 OPERATIVE REPORT DATE OF OPERATION: 08/15/2015 : 1945 SURGEON: Alonso Gutierrez DPM MINIATURE SET BUILDER: EDILSON Haynes was present to assist due to the fact a qualified resident was not available. AGE: 70 PREOPERATIVE DIAGNOSIS: Displaced, comminuted, intraarticular fracture proximal phalanx, right hallux. POSTOPERATIVE DIAGNOSIS: Displaced, comminuted, intraarticular fracture proximal phalanx, right hallux. PROCEDURE PERFORMED: Open reduction with percutaneous 0.062 crossed K-wire fixation, right hallux. FINDINGS: Significantly dorsally displaced fracture fragments head of the proximal phalanx intraarticular withsignificant comminution, right hallux. OPERATIVE INDICATIONS: This 70-year-old female recently had stubbed her right hallux creating a comminuted, intraarticular fracture of the head of the proximal phalanx with significant displacement. Patient presents for surgical repair. ANESTHESIA: MAC. DESCRIPTION OF THE PROCEDURE: Patient was transported from the preoperative holding area to the operatory suite and placed in a supine position. All monitors were placed. Patient's vitals were monitored throughout the case per Anesthesia. After successful IV sedation and appropriate tyvdy-hvx-tli-cause for surgical site identification, attention was directed to the right foot at which time 16 mL of 0.25% Sensorcaine plain was utilized to perform a Humphrey block to the 1st ray. Right foot was then prepped and draped in the usual aseptic manner. After appropriate curcs-vok-mvx-cause for surgical site identification once again and after the patient had received 2 grams of Ancef IV piggyback, attention was directed to the right foot at which time closed reduction was attempted under fluoroscopic visualization. The fracture fragmentscould not be reduced. Therefore, attention was directed to the dorsal aspect of the right hallux at which time a lazy-S skin incision approximately 3 cm in length was created extending dorsal lateral to proximal medial crossing the IPJ transversely. The previous scar from bunionectomy was incorporated at the proximal arm. This incision was deepened through subcutaneous tissue, carefully avoiding all neurovascular structures. Electrocautery was utilized for hemostasis of superficial venous bleeders. Through blunt and sharp dissection, extensor tendon apparatus and capsular tissues were identified dorsal to the IPJ. Thesewere incised in transverse fashion. Extensor tendon was then elevated. Fracture fragments were identified. There was significant comminution. The condyles were split centrally as well. The fracture wasdebrided and irrigated, hallux placed under distal traction and the fragments were then manipulated to near anatomic alignment. I then placed a 0.062 K-wire in the large lateral condylar fragment and large medial condylar fragment, that being 2 separate K-wires. I used these then as joysticks as well to align the fracture fragments and then K-wires were driven into the proximal main fragment of phalanx and had bicortical fixation. Again in all 3 planes, fractures were evaluated and found to have anatomic to near-anatomic alignment. They were well reduced. Smaller fracture fragments essentially werealso well-seated and stable. K-wire was then cut and capped to appropriate length. The wound was copiously irrigated with sterile saline. Extensor tendon apparatus was then reapproximated utilizing 2-0 Vicryl in a figure-of-8 interrupted fashion. Incision was then closed utilizing 4-0 nylon. Gauze and Kerlix dressing was placed. Patient left the operatory suite with all vital signs stable, in good condition, tolerating all procedures well. All counts were correct. Patient will remain with strict nonweightbearing for at least 4 weeks. Patient will be seen in one week's time for wound evaluation and dressing change. Patient will then be seen at 2 weeks postop for suture removal. Patient is currently taking Enbrel and I have asked that she discontinue this for thenext 2 weeks until suture removal as long as there are no clinical signs of infection. ALEX: C: R:08/15/15 14:48 CONFIRM#:[id number] documented in this encounter Miscellaneous Notes Medication History - Kamini, MD Clyde - 08/15/2015 9:18 AM CDT INPATIENT MEDS Encounter Date: 08/14/15 midazolam (VERSED) 1 mg/mL injection 1-2 mg Start Date:08/15/15, End Date:08/15/15, Frequency:EVERY 5 MIN PRN *No Administrations Recorded fentaNYL (SUBLIMAZE) injection 25-50 mcg Start Date:08/15/15, End Date:08/15/15, Frequency:EVERY 5 MIN PRN *No Administrations Recorded HYDROcodone-acetaminophen (NORCO) 5-325 mg per tablet Start Date:08/15/15, End Date:-, Frequency:EVERY 6 HOURS PRN *No Administrations Recorded Biotin 10,000 mcg Cap Start Date:-, End Date:-, Frequency:- *No Administrations Recorded fentaNYL (SUBLIMAZE) injection 25-50 mcg Start Date:08/15/15, End Date:08/15/15, Frequency:EVERY 5 MIN PRN *No Administrations Recorded morphine injection 1-3 mg Start Date:08/15/15, End Date:08/15/15, Frequency:EVERY 5 MIN PRN *No Administrations Recorded HYDROmorphone (DILAUDID) injection 0.2-0.4 mg Start Date:08/15/15, End Date:08/15/15, Frequency:EVERY 10 MIN PRN *No Administrations Recorded ondansetron (ZOFRAN) injection 4 mg Start Date:08/15/15, End Date:08/15/15, Frequency:EVERY 4 HOURS PRN *No Administrations Recorded prochlorperazine (COMPAZINE) injection 5 mg Start Date:08/15/15, End Date:08/15/15, Frequency:PRN *No Administrations Recorded meperidine (DEMEROL) injection 12.5 mg Start Date:08/15/15, End Date:08/15/15, Frequency:EVERY 5 MIN PRN *No Administrations Recorded midazolam (VERSED) 1 mg/mL injection 0.5-1 mg Start Date:08/15/15, End Date:08/15/15, Frequency:EVERY 5 MIN PRN *No Administrations Recorded ceFAZolin (ANCEF) 2 g in dextrose 100 ml IVPB Start Date:08/15/15, End Date:08/15/15, Frequency:ONCE *No Administrations Recorded IP AVS Snapshot - Clyde Suárez MD - 08/15/2015 8:04 AM CDT [facility] [address] [place] [address] Surgical Summary 08/15/2015 Kahty Mckeon MRN: : [id number] Admission Information Department Dept Phone Hosp. Acct. # 08/15/2015 5:57 AM [facility] [phone] Admitting Provider Information Provider Pager Service Admission Date Alonso Gutierrez DPM Ambulatory Surgery 08/15/2015 Actual LOS 0 days General Information Allergies Celebrex [Celecoxib] Rash Lisinopril chest pressure Sulfa (Sulfonamide Antibiotics) tongue got sore Discharge Procedures None Current Immunizations Never Reviewed No immunizations on file. Your Medications CONTINUE these medications Quantity & Refills Last Dose Given HYDROcodone-acetaminophen 5-325 mg per tablet Take 1-2 tablets by mouth every 6 hours as needed for Pain. Commonly known as: NORCO Quantity: 40 tablet Refills: 0 ASK your doctor about these medications Quantity & Refills Last Dose Given atenolol 25 mg tablet Take by mouth daily (every 24 hours). Commonly known as: TENORMIN Refills: 0 Biotin 10,000 mcg Cap Take by mouth. Refills: 0 CALCIUM 600 + D ORAL Take by mouth. Refills: 0 Cholecalciferol (Vitamin D3) 2,000 unit Cap Take by mouth. Refills: 0 hydrochlorothiazide 12.5 mg capsule Commonly known as: MICROZIDE Refills: 0 Where to Get Your Medications These are the prescriptions that you need to pickle maker. You received printed prescriptions for the following medications or they are available over the counter. You may pick them up at any pharmacy: - HYDROcodone-acetaminophen 5-325 mg per tablet Managing your medication list is very important. Update your medication information when your medications are discontinued, doses are changed, or new medications (including nqch-epm-bxtnvub products) are added. You are also encouraged to carry medication information at all times in the event of emerge ncy situations. Nurse initals that this was reviewed with the patient. Caring for yourself after your hospital stay Future Appointments 08/23/2015 2:30 PM Postop with Buster Snyder LPN [facility] ([facility] [place]) [address] [place] [address] [place] [address] 09/05/2015 9:30 AM Postop with [facility] Heidi Abby Nurse [facility] ([facility] [place]) [address] [place] [address] [place] [address] 09/26/2015 2:45 PM Postop with Alonso Gutierrez DPM [facility] ([facility] [place]) [address] [place] [address] [place] [address] Appointments for Next 60 Days 08/23/2015 2:30 PM POST-OP 30 min [facility] [[id number]] Please arrive 15 minutes prior to your appointment. It is important to bring a list of all of your medications and over the counter supplements, your insurance card, copay and photo ID. Please bring any relevant medical records and films to your visit. If you are unable to keep your appointment, please provide us with a 24 hour notice of cancellation. From the East: Take [address] to the [facility] exit. Turn left on [address] [facility] and proceed to [address]. Turn left at the stoplight on [address]. Turn left on [address] and follow it to the [facility] parking ramp. From the West: Take [address] to the [address] [facility] exit. Turn right on [address] and proceed to [address] Turn left at the stoplight on [address] Turn left on [address] and follow it to the [facility] parking ramp. 09/05/2015 9:30 AM POST-OP 60 min [facility] [[id number]] Please arrive 15 minutes prior to your appointment. It is important to bring a list of all of your medications and over the counter supplements, your insurance card, copay and photo ID. Please bring any relevant medical records and films to your visit. If you are unable to keep your appointment, please provide us with a 24 hour notice of cancellation. From the East: Take [address] to the [facility] [address] [facility] exit. Turn left on [address] and proceed to [address] Turn left at the stoplight on [address] Turn left on [address] and follow it to the [facility] parking ramp. From the West: Take [address] to the [address] [facility] exit. Turn right on [address] and proceed to [address] Turn left at the stoplight on [address] Turn left on [address] and follow it to the [facility] parking ramp. 09/26/2015 2:45 PM POST-OP 15 min [facility] [[id number]] Please arrive 15 minutes prior to your appointment. It is important to bring a list of all of your medications and over the counter supplements, your insurance card, copay and photo ID. Please bring any relevant medical records and films to your visit. If you are unable to keep your appointment, please provide us with a 24 hour notice of cancellation. From the East: Take [address] exit. Turn left on [address] and proceed to [address] Turn left at the stoplight on [address] Turn left on [address] and follow it to the [facility] parking ramp. From the West: Take [address] to [address] exit. Turn right on [address] and proceed to [address] Turn left at the stoplight on [address] Turn left on [address] and follow it to the [facility] ramp. Patient Instructions None ` Nurse Signature: Date: ` Patient Signature: Date: documented in this encounter Plan of Treatment Not on filedocumented as of this encounter Visit Diagnoses Not on filedocumented in this encounter Care Teams Barrel Assembler Helper Relationship Specialty Start Date End Date Abida Martell MD PCP - General 11/28/[address] [place] [address] documented as of this encounter
--- OUTSIDE RECORDS SUMMARY | 2022-02-04 13:00 | XMS_ITS | Encounter Summary ---
:1945 Author Organization [facility] Address [address] [address] Care Team Providers Name Role Phone Abida Martell MD Primary Care Provider Encounter Details Date Type Department Care Team Description 08/21/2015 Notes/Orders [facility] Alonso Gutierrez, Aftercare following Prosthetics DPM surgery of the [address] [place] [address] musculoskeletal system [place], [place] (Primary Dx) [place] [address] [phone] Social History Tobacco Use Types Packs/Day Years Used Date Smoking Tobacco: Never Assessed Sex Assigned at Date Recorded Not on file documented as of this encounter Plan of Treatment Not on filedocumented as of this encounter Visit Diagnoses Diagnosis Aftercare following surgery of the [facility] loskeletal system - Primary Aftercare following surgery of the [facility] loskeletal system, NEC documented in this encounter Care Teams [place] Manager Relationship Specialty Start Date End Date Abida Martell MD PCP - General 11/[address] [place] [address] documented as of this encounter
--- OUTSIDE RECORDS SUMMARY | 2022-02-04 13:00 | XMS_ITS | Encounter Summary ---
:1945 Author Organization [facility] Address [address] [place], [place] [address] [place] [address] Care Team Providers Name Role Phone Abida Martell MD Primary Care Provider Reason for Visit Reason Comments Post Op Exam Encounter Details Date Type Department Care Team Description 09/12/2015 Office Visit [facility] Alonso Gutierrez, [facility] are following CENTER DPM surgery of the [address] [place] [address] musculoskeletal system [place], [place] (Primary Dx) [phone] Social History Tobacco Use Types Packs/Day Years Used Date Smoking Tobacco: Never Assessed Sex Assigned at Date Recorded Not on file documented as of this encounter Patient Instructions Patient InstructionsBuster Snyder LPN - 09/12/2015 4:[address] Alonso Gutierrez, DPM Podiatric Medicine & Senior Telecommunications TechnicianButane Compressor Operator, [facility] Purchasing Manager/Sales: Ade Murillo Please call Ade for all administrative questions at [phone] Nurse: Irena Paz, RN Please contact Irena for all medical questions at [phone] Medication Requests: Prescriptions are not filled on Weekends or on Weekdays after 3:00PM For all medication refills: Request a refill using MyChart or contact your Pharmacy Wear boot partial weightbearing for 2 weeks. Ok to shower but no soaking. Change band-aid daily and apply bacitracin ointment to area Follow up in 2 weeks documented in this encounter Progress Notes Alonso Gutierrez DPM - 09/12/2015 2:05 PM CDT Progress Notes signed by Alonso Gutierrez DPM at 09/16/15 1650 Author: Alonso Gutierrez DPM Service: (none) Author Type: Physician Filed: 09/16/15 4287 Note Time: 09/16/15 1248 Status: Signed Grants Specialist: Alonso Gutierrez DPM (Physician) NAME: KATHY MCKEON MR#: [id number] CSN: [id number] AUTHENTICATING CLINICIAN: Alonso Gutierrez DPM CONFIRM #: [id number] LOC: 711 CLINIC PROGRESS NOTE DATE OF VISIT: 09/12/2015 : 1945 CHIEF COMPLAINT: Status post ORIF of right hallux fracture. Date of surgery 08/15/2015. HPI: This is a return clinic visit for this patient now 4 weeks status post the above stated procedure. The patient states recently she noticed the lateral pin looked a bit abnormal or funny. She was ironing one day and hit the toe on her scooter. PHYSICAL EXAM: Physical exam reveals incision line is well healed. There is no erythema. No drainage. Mild edema tothe right hallux. The lateral K-wire appears to have retrograded. IMAGING: Three views coned right hallux radiographs were obtained and independently reviewed. Patient is 4 weeks status post ORIF of a comminuted intraarticular fracture of the head of the proximal phalanx witha history of significant displacement. K-wires are noted once again to the proximal phalanx head. The lateral K-wire has retrograded when compared to previous radiographs. The fracture lines are difficult to discern indicative of progressive bony incorporation. There is anatomic alignment noted. Radiographic Impression: At 4 weeks status post ORIF of a comminuted fracture of the distal phalanx right hallux with anatomic alignment, progressive bony incorporation, retrograde position of the lateral K-wire. ASSESSMENT: At 4 weeks status post ORIF of a comminuted proximal phalangeal fracture intraarticular right halluxwith anatomic alignment, retrograde lateral K-wire, healing well without acute clinical signs of infection. PLAN: K-wire is removed. Patient will use her tall Cam boot for any and all ambulation keeping ambulatory activities limited. I will see the patient in 2 weeks for followup. Will obtain 3 views coned of the right hallux at that time. ALEX:EDWARD C: R:09/12/15 14:12 CONFIRM#:[id number] documented in this encounter Plan of Treatment Not on filedocumented as of this encounter Visit Diagnoses Diagnosis Aftercare following surgery of the [facility] - Primary Aftercare following surgery of the [facility] los[facility] system, NEC documented in this encounter Care Teams Para Professional Relationship Specialty Start Date End Date Abida Martell MD PCP - General 11/28/[address] [place] [address] documented as of this encounter
--- OUTSIDE RECORDS SUMMARY | 2022-02-04 13:00 | XMS_ITS | Encounter Summary ---
:1945 Author Organization [facility] Address [address] [place] [address] Care Team Providers Name Role Phone Unavailable Primary Care Provider Unavailable Encounter Details Date Type Department Care Team Description 03/10/2012 Hospital Encounter Eric Mckeon MD [facility] [address] [place] [address] [address] [place] [address] [place], [place] [address] [phone] Social History Tobacco Use Types Packs/Day Years Used Date Smoking Tobacco: Never Assessed Sex Assigned at Date Recorded Not on file documented as of this encounter Last Filed Vital Signs Vital Sign Reading Time Taken Comments Blood Pressure - - Pulse - - Temperature - - Respiratory Rate - - Oxygen Saturation - - Inhaled Oxygen Concentration - - Weight 76.2 kg (168 lb) 03/07/2012 11:00 AM LINING FINISHER Height 160 cm (5' 3) 03/07/2012 11:00 AM LINING FINISHER Body Mass Index 29.76 03/07/2012 11:00 AM LINING FINISHER documented in this encounter Medications at Time of Discharge Medication Sig Dispensed Refills Start Date End Date ATENolol (AKA TENORMIN) 25 MG Take by mouth 0 tablet daily (every 24 hours). Calcium Carbonate-Vitamin D Take by mouth. 0 12/2609/09/2021 (CALCIUM 600+D OR) cholecalciferol 5000 UNITS Take 5,000 Units 0 03/18/2012 by mouth. escitalopram oxalate (AKA Take 20 mg by 0 012 08/14/2015 LEXAPRO) 20 MG tablet mouth daily (every 24 hours). hydrochlorothiazide (AKA Take 25 mg by 0 01/15/20 12 11/28/2012 HYDRODIURIL) 25 MG tablet mouth daily (every 24 hours). HYDROcodone-acetaminophen Take 1-2 tablets 30 tablet 0 02/2408/15/2015 (AKA NORCO) 5-325 MG tablet by mouth every 6 hours as needed for Pain. documented as of this encounter Procedure Notes Eric Ellis MD - 03/10/2012 1:33 PM CST Op Note signed by Eric Ellis MD at 03/10/12 3189 Author: Eric Ellis MD Service: (none) Author Type: Physician Filed: 03/10/12 1036 Note Time: 03/10/12 1333 Status: Signed Biological Lab Technician: Eric Ellis MD (Physician) NAME: KATHY MCKEON ENCOUNTER: [id number] DICTATING CLINICIAN: ERIC ELLIS MD JOB: [id number] Med JOB: [id number] LOC: 3725 OPERATIVE REPORT : 1945 DATE OF OPERATION: 03/10/2012 PREOPERATIVE DIAGNOSIS: Painful syndesmosis screw, right ankle; status post ORIF right Crowe C ankle fracture. POSTOPERATIVE DIAGNOSIS: Painful syndesmosis screw, right ankle; status post ORIF right Crowe C ankle fracture. PROCEDURE PERFORMED: Removal of syndesmosis screw under local standby anesthesia, right ankle. SURGEON: ERIC ELLIS MD PREP PERSON: REMINGTON APARICIO MD - Dr. Aparicio assisted because there were no residents available. HISTORY: The patient is a 67-year-old female who is approximately 9-10 weeks status post ORIF of her ankle. She had plating of a fibular fracture and placement of a syndesmosis screw. She has been weightbearing on this for the last couple of weeks and is noticing pain in the area of her screw and prominence to the screw. We have elected to remove the screw since her mortise is intact and the syndesmosis injury appears to have healed satisfactorily. The nature of the surgery, its risks, complications and expected outcome are reviewed and discussed, and consent obtained. DESCRIPTION OF PROCEDURE: Patient was brought to the operating room. She was placed supine on the operating room table. We then locally anesthetized her lateral ankle in the area over the prominent screw with 0.25% Marcaine with epinephrine. At this point the patient's foot and ankle were prepped and draped in the usual sterile fashion. Appropriate pause for limb identification was performed. She had been given 1 gm of Ancef IV within one hour of the procedure. Using local standby with sedation and administered by Anesthesia, an incision was made over the screw. The screw was identified and then removed from her ankle. We checked her mortise with C-arm under both stressed and nonstressed views and there was no sign of displacement or widening of the mortise to external rotation stress. Therefore, thorough irrigation was performed and the incision was closed with 4-0 nylon suture. A sterile bulky dressing was applied. The patient was transferred to the PAR cart and taken to the PAR in satisfactory condition. There were no intraoperative complications noted and she was doing well in the PAR. MT: 3 IM: NG FINISHER documented in this encounter Miscellaneous Notes Medication History - Kamini, MD Clyde - 03/10/2012 3:08 PM CST INPATIENT MEDS Encounter Date: 03/03/12 HYDROcodone-acetaminophen (NORCO) 5-325 mg per tablet Start Date:03/10/12, End Date:08/15/15, Frequency:EVERY 6 HOURS PRN *No Administrations Recorded midazolam (VERSED) injection 1-2 mg Start Date:03/10/12, End Date:03/10/12, Frequency:EVERY 5 MIN PRN *No Administrations Recorded fentaNYL (SUBLIMAZE) injection 25-50 mcg Start Date:03/10/12, End Date:03/10/12, Frequency:EVERY 5 MIN PRN *No Administrations Recorded HYDROmorphone (DILAUDID) injection 0.2-0.6 mg Start Date:03/10/12, End Date:03/10/12, Frequency:EVERY 5 MIN PRN *No Administrations Recorded fentaNYL (SUBLIMAZE) injection 25-50 mcg Start Date:03/10/12, End Date:11/15/12, Frequency:EVERY 5 MIN PRN *No Administrations Recorded ondansetron (ZOFRAN) injection 4 mg Start Date:03/10/12, End Date:03/10/12, Frequency:EVERY 4 HOURS PRN *No Administrations Recorded meperidine (DEMEROL) injection 12.5 mg Start Date:03/10/12, End Date:03/10/12, Frequency:EVERY 5 MIN PRN *No Administrations Recorded midazolam (VERSED) injection 0.5-1 mg Start Date:03/10/12, End Date:03/10/12, Frequency:EVERY 5 MIN PRN *No Administrations Recorded morphine injection 1-3 mg Start Date:03/10/12, End Date:03/10/12, Frequency:EVERY 5 MIN PRN *No Administrations Recorded NG FINISHER documented in this encounter Plan of Treatment Not on filedocumented as of this encounter Visit Diagnoses Not on filedocumented in this encounter
--- OUTSIDE RECORDS SUMMARY | 2022-02-04 13:00 | XMS_ITS | Encounter Summary ---
:1945 [facility] Address [address] [place] [address] Care Team Providers Name Role Phone Unavailable Primary Care Provider Unavailable Reason for Visit Reason Comments Post Op Exam Clavicle Injury Encounter Details Date Type Department Care Team Description 01/15/2012 Surgical Consult [facility] Eric Ellis MD Fx ankle; [address] Unspecified part of closed fracture of c lavicle; [address] [place], [place] Unspecified [place] [address] [phone] Social History Tobacco Use Types Packs/Day Years Used Date Smoking Tobacco: Never Assessed Sex Assigned at Date Recorded Not on file documented as of this encounter Progress Notes Eric Ellis MD - 01/16/2012 10:28 AM CDT Progress Notes signed by Eric Ellis MD at 01/20/12 1434 Author: Eric Ellis MD Service: (none) Author Type: Physician Filed: 01/20/12 1434 Note Time: 01/16/12 1028 Status: Signed Mailmaster: Eric Ellis MD (Physician) NAME: KATHY MCKEON VISIT: [id number] DICTATING CLINICIAN: ERIC ELLIS MD JOB: [id number] [facility] JOB: [id number] LOC: 3711 CLINIC PROGRESS NOTE DATE OF VISIT: 01/15/2012 : 1945 CHIEF COMPLAINT: Right ankle fracture and right clavicle fracture. HISTORY: The patient is a 67-year-old female referred to me for initial evaluation for both a right ankle fracture and a right clavicle fracture. Her history is that of having broken her clavicle almost a month ago. Recently she was in [place] and approximately 2-1/2 weeks ago sustained a fracture of her fibula. She thinks she may have reinjured her clavicle at that time. The patient broke her ankle on December 28 and then had a recheck and a cast on the . On January 03, she underwent an open reduction and internal fixation with 2 screws of her syndesmosis injury. The next day she had a second surgery and revision of that first surgery with placement of plate and screws as well as placement of a syndesmosis screw. She now returns back to the [facility] and needs a followup. She is referred to me by her brother, Bennett Patrick, who is a friend of mine. Patient states that she is generally doing well. She is not having a great deal of pain in her collarbone or the shoulder region. She is getting some secondary muscle spasm and some neck discomfort. She has no pain radiating down into her right upper extremity. She denies numbness, weakness or tingling of that right upper extremity. Patient has been wearing a figure-of-8 apparatus and that is fairly comfortable for her. With respect to the ankle, she has been in a splint. She has been trying to get around with a wheelchair. She cannot really use crutches very well and she has been trying not to bear any weight. She has not noticed any numbness or tingling in her foot and not had any calf tenderness or excessive swelling in that right lower extremity. The intake sheet was reviewed with the patient. This was up-to-date including medications, past surgical history and social history, as well as risk factors, complete review of systems and family health history and scanned into the electronic medical record. PHYSICAL EXAMINATION: On exam today, the patient has an obvious prominence of the midshaft of her midportion of her clavicle. She appears to have an overriding clavicle fracture. With range of motion of her shoulder, I cannot really appreciate gross motion at the sight of the clavicle fracture. She actually has very good active overhead use in that shoulder and normal rotator cuff strength. She does have tenderness along the course of her clavicle and is also tender in the trapezius musculature. The patient has very good range of motion of her neck with no paracervical spasm. Sensation and pulses are intact in that right upper extremity. With respect to the ankle, the patient has a long incision over the fibula. The incision is healing well. Sutures are removed and the incision is Steri-stripped. Sensation and pulses are intact in her foot and she appears to have satisfactory alignment of that ankle and no sign of dramatic widening of the ankle. She has good, active dorsi and plantarflexion in her ankle. IMAGING: X-rays independently reviewed. AP and lordotic of the patient's right clavicle reveals a comminuted overriding midshaft clavicle fracture. There appears to be some early calcification present. Three views of the patient's right ankle including AP, lateral and a mortise view are obtained. The mortise view reveals it to be intact. There is a screw transfixing the syndesmosis and holding it in satisfactory position. In addition, there is a plate and screws more proximally in the region of the distal midshaft fibula fracture. The alignment appears anatomic and the screw fixation is adequate. IMPRESSION: 1. Healing right clavicle fracture. 2. Status post ORIF right fibula fracture with disruption of the syndesmosis with adequate fixation and alignment at this time. PLAN: At this point she needs to continue to be nonweightbearing for her fibula fracture. The surgeon in [place] wanted her nonweightbearing for a period of 6 weeks. We placed her into a short leg nonweightbearing cast and she was given a Turning Surgical Aides Teacher to use because of her clavicle fracture. She also appears to have good stability of the clavicle fracture at this time and, therefore, we are going to observe the clavicle fracture and hope that that goes on to a solid union. I did inform that there will be some overriding and some deformity present, but there is a very good chance that this fracture will go on to satisfactory healing for her. I would like to see her back in 3 weeks for a follow up evaluation and will likely place her into a removable boot at that time. If she has any problems in the interim she is advised to get in touch with us. IM: 01/16/2012 02:55:22 pm MT: 8 documented in this encounter Plan of Treatment Not on filedocumented as of this encounter Procedures Procedure Name Priority Date/Time Associated Diagnosis Comme nts XR ANKLE RT 3 VIEWS Routine 01/15/2012 11:32 AM Fx ankle R esults for this CDT procedure are i n the results section. XR CLAVICLE RT 2+ Routine 01/15/2012 11:32 AM Unspecified part of Results for this VIEWS CDT closed fracture of procedure are in clavicle the results section. documented in this encounter Results XR Clavicle Rt 2+ Views (01/15/2012 11:32 AM CDT) Anatomical Region Laterality Modality Upper Extremity, Chest, Shoulder Other Specimen (Source) Anatomical Location Collection Method / Collectio n Time Received Time / Laterality Volume Narrative 01/20/2012 2:24 PM CDT AP and lordotic of the patient's right c lavicle reveals a comminuted overriding midshaft clavicle fracture. ? ? There appears to be some early calcification present. ?? NAE/auto headlight mechanic Procedure Note Eric Ellis MD - 10/12/2015Formattin g of this note might be different from the original. AP and lordotic of the patient's right c lavicle reveals a comminuted overriding midshaft clavicle fracture. T here appears to be some early calcification present. NAE/auto headlight mechanic Eric Ellis MD RAD GD XR Ankle Rt 3 Views (01/15/2012 11:32 AM CDT) Anatomical Region Laterality Modality Lower Extremity, Ankle, Foot & Ankle Oth er Specimen (Source) Anatomical Location Collection Method / Collectio n Time Received Time / Laterality Volume Narrative 01/20/2012 2:29 PM CDT Three views of the patient's right ankle including AP, lateral and a mortise view are obtained. The mortise v iew reveals it to be intact. There is a screw transfixing the syndesm osis and holding it in satisfactory position. ??In addition, th ere is a plate and screws more proximally in the region of the distal m idshaft fibular fracture. The alignment appears anatomic and the screw fixation is adequate. ?? NAE/auto headlight mechanic Procedure Note Eric Ellis MD - 10/12/2015Formattin g of this note might be different from the original. Three views of the patient's right ankle including AP, lateral and a mortise view are obtained. The mortise v iew reveals it to be intact. There is a screw transfixing the syndesm osis and holding it in satisfactory position. In addition, ther e is a plate and screws more proximally in the region of the distal m idshaft fibular fracture. The alignment appears anatomic and the screw fixation is adequate. NAE/auto headlight mechanic Eric HESTER documented in this encounter Visit Diagnoses Diagnosis Fx ankle Unspecified closed fracture of ankle Unspecified part of closed fracture of c lavicle Unspecified closed fracture of ankle documented in this encounter
--- OUTSIDE RECORDS SUMMARY | 2022-02-04 13:00 | XMS_ITS | Encounter Summary ---
:1945 Author Organization [facility] Address [address] [place] [address] Care Team Providers Name Role Phone Abida Martell MD Primary Care Provider Encounter Details Date Type Department Care Team Description 03/10/2012 Orders Only [facility] Stekory, Saeed Burnham MD Infected hardware in CENTER [address] [place] [address] right leg (Primary [address] [place], [place] Dx) [place], [place] [phone] (Wo rk) Social History Tobacco Use Types Packs/Day Years Used Date Smoking Tobacco: Never Assessed Sex Assigned at Date Recorded Not on file documented as of this encounter Plan of Treatment Not on filedocumented as of this encounter Procedures Procedure Name Priority Date/Time Associated Comments Diagnosis ECG 12 LEAD Routine 03/10/2012 12:30 PM Infected hardware Res ults for this OUTPATIENT PERSONAL COMPUTER NETWORK ANALYST in right leg (HRC) procedure are in the results section. documented in this encounter Results ECG 12 Lead Outpatient (03/10/2012 12:30 PM PERSONAL COMPUTER NETWORK ANALYST) P athologist Signature Ventricular Rate 59 BPM [facility] Atrial Rate 59 BPM [facility] P-R Interval 130 ms [facility] QRS Duration 82 ms [facility] QT 420 ms [facility] QTc 415 ms [facility] P [place] 58 degrees [facility] R [place] 81 degrees [facility] T [place] 42 degrees [facility] Specimen (Source) Anatomical Collection Method Collection Time Re ceived Time Location / / Volume Laterality 03/10/2012 12:30 PM PERSONAL COMPUTER NETWORK ANALYST Narrative [facility] - 07/31/2019 7:49 PM CDT Sinus bradycardia Otherwise normal ECG No previous ECGs available Confirmed by LATASHA ROPER ([id number]), YVONNE Morris () on 03/10/2012 5:34:46 PM Procedure Note Epic, Internal Processing - 08/04/2019Fo rmatting of this note might be different from the original. 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
--- OUTSIDE RECORDS SUMMARY | 2022-02-04 13:00 | XMS_ITS | Encounter Summary ---
:1945 Author Organization [facility] Address [address] [place] [address] Care Team Providers Name Role Phone Abida Martell MD Primary Care Provider Reason for Visit Reason Comments Post Op Exam Encounter Details Date Type Department Care Team Description 08/30/2015 Office Visit [facility] SUZI TER Nurse, Tria Closed displaced [address] [facility] Ortho fracture of proximal [place], [place] [address] 1 phalanx of right great [phone] toe, initial en counter (Primary Dx) Social History Tobacco Use Types Packs/Day Years Used Date Smoking Tobacco: Never Assessed Sex Assigned at Date Recorded Not on file documented as of this encounter Progress Notes Jona Carpenter RN - 08/30/2015 4:05 PM CDT Post-Operative Note DOS: 08/10/15 Procedure Performed: Open reduction with percutaneous 0.062 crossed K-wire fixation, right hallux. Pain level: Pain Medication: Brace:post op shoe Assistive Device:roll a bout Incision:intact with sutures, sutures removed steri-strips placed. Drainage:none No signs of infection Thigh/Calf: soft non tender Assessment: Normal post-operative healing and progress. Plan: Patient verbalized understanding of post-operative plan. documented in this encounter Plan of Treatment Not on filedocumented as of this encounter Visit Diagnoses Diagnosis Closed displaced fracture of proximal ph alanx of right great toe, initial encounter - Primary documented in this encounter Care Teams Business Banking Manager Relationship Specialty Start Date End Date Abida Martell MD PCP - General 11/[address] [place] [address] documented as of this encounter
--- OUTSIDE RECORDS SUMMARY | 2022-02-04 13:00 | XMS_ITS | Encounter Summary ---
:1945 Author Organization [facility] Address [address] [place], [place] [address] [place] [address] Care Team Providers Name Role Phone Abida Martell MD Primary Care Provider Reason for Visit Reason Comments Post Op Exam Encounter Details Date Type Department Care Team Description 09/25/2015 Office Visit [facility] Alonso Gutierrez, Afterbaudilio are following CENTER DPM surgery of the [address] [place] [address] musculoskeletal system [place], [place] (Primary Dx) [phone] Social History Tobacco Use Types Packs/Day Years Used Date Smoking Tobacco: Never Assessed Sex Assigned at Date Recorded Not on file documented as of this encounter Patient Instructions Patient InstructionsBuster Snyder LPN - 09/25/2015 11:[address] Alonso Gutierrez DPM Podiatric Medicine & VendetteSmoking Pipe Repairer, [facility] Assistant Front Office Manager: Ade Murillo Please call Ade for all administrative questions at [phone] Nurse: Irena Paz, RN Please contact Irena for all medical questions at [phone] Medication Requests: Prescriptions are not filled on Weekends or on Weekdays after 3:00PM For all medication refills: Request a refill using MyChart or contact your Pharmacy documented in this encounter Progress Notes Alonso Gutierrez DPM - 09/25/2015 9:41 PM CDT Progress Notes signed by Alonso Gutierrez DPM at 09/30/152206 Author: Alonso Gutierrez DPM Service: (none) Author Type: Physician Filed: 09/30/152206 Note Time: 09/30/15 1343 Status: Signed Strip Catcher: Alonso Gutierrez DPM (Physician) NAME: KATHY MCKEON MR#: [id number] CSN: [id number] AUTHENTICATING CLINICIAN: Alonso Gutierrez DPM CONFIRM #: [id number] LOC: 711 CLINIC PROGRESS NOTE DATE OF VISIT: 09/25/2015 : 1945 CHIEF COMPLAINT: Six weeks status post ORIF right hallux fracture. Date of surgery 08/15/2015. HPI: This is a return clinic visit for this patient now 6 weeks status post above- stated procedure. Patient relates she is doing very well, not having much of any discomfort. PHYSICAL EXAM: Physical exam reveals mild edema to the right hallux. No erythema. No drainage. Incision line is well healed. There is mild limitation of motion to the IPJ of the right hallux. No pain. No crepitation. IMAGING: X-rays ordered, independently reviewed. Three views cone right hallux. Patient is 6 weeks status post ORIF comminuted fracture of the distal aspect proximal phalanx. The fracture lines are much less distinct when compared to previous radiographs, indicative of progressivebony incorporation. Alignment is unchanged and well maintained. Radiographic Impression: Six weeks status post ORIF of comminuted intraarticular head of the proximal phalanx fracture right hallux, with progressive bony incorporation with alignment well-maintained. ASSESSMENT: Six weeks status post ORIF right hallux fracture healing well without acute clinical signs of infection. PLAN: Patient is healing nicely. She may advance to a good supportive shoe. She will keep ambulatory activities limited. I would like to see the patient in approximately 4-6 weeks for followup. Will obtain 3 views coned of the right hallux at that time as well. ALEX:ROGELIO C: R:09/26/15 11:40 CONFIRM#:[id number] documented in this encounter Plan of Treatment Not on filedocumented as of this encounter Visit Diagnoses Diagnosis Aftercare following surgery of the [facility] loskeletal system - Primary Aftercare following surgery of the [facility] loskeletal system, N[facility] documented in this encounter Care Teams Grit Removal Operator Relationship Specialty Start Date End Date Abida Martell MD PCP - General 11/28/[address] [place] [address] documented as of this encounter
--- OUTSIDE RECORDS SUMMARY | 2022-02-04 13:00 | XMS_ITS | Clinical Summary ---
:1945 Author Organization [facility] [place] [address] Care Team Providers Name Role Phone Abida Martell MD Primary Care Provider Allergies Active Allergy Reactions Severity Noted Date Comments Celecoxib Rash 01/23/2013 Lisinopril Other - Describe In 01/23/2013 PN: ches t pressure Comment Field Sulfa (Sulfonamide Rash 07/21/2016 Antibiotics) Medications Medication Sig Dispensed Refills Start Date End Date Status hydroCHLOROthiazide Take 1 tablet by 0 07/21/2016 Active (HCTZ) 25 mg tablet mouth once daily. atenolol (TENORMIN) 25 Take 1 tablet by 0 07/21/2016 Active mg tablet mouth once daily. traZODone (DESYREL) 50 Take 1 tablet by 0 07/21/2016 Active mg tablet mouth at bedtime. pantoprazole (PROTONIX) Take 40 mg by 0 05/20/2017 Active 40 mg delayed-release mouth once daily. tablet diazePAM (VALIUM) 5 mg Take 5 mg by mouth 0 12/08/19 20 Active tablet once daily if needed. hyoscyamine sublingual DISSOLVE ONE 0 03/09/2020 Active (LEVSIN SL) 0.125 mg TABLET UNDER THE subl TONGUE EVERY 8 HOURS NEEDED aspirin (ECOTRIN) 81 mg Take 1 Tablet (81 0 09/26/19 21 Active enteric coated tablet mg) by mouth once daily with a meal. acetaminophen SR Take 1 Tablet (650 0 09/25/2020 Active (Tylenol 8 Hour) 650 mg mg) by mouth every Extended-Release tablet 8 hours if needed. Max acetaminophen dose: 4000mg in 24 hrs. Active Problems Not on file Social History Tobacco Use Types Packs/Day Years Used Date Never Smoker Smokeless Tobacco: Never Used Alcohol Use Standard Drinks/Week Comments Yes 7 (1 standard drink = 0.6 oz pure alcoho l) Sex Assigned at Date Recorded Not on file Obstetrics History Last Filed Vital Signs Vital Sign Reading Time Taken Comments Blood Pressure 130/74 09/25/2020 12:56 PM CDT Pulse 64 09/25/2020 12:56 PM CDT Temperature - - Respiratory Rate 18 07/21/2016 1:06 PM CDT Oxygen Saturation 98% 09/25/2020 12:56 PM CDT Inhaled Oxygen Concentration - - Weight 69.1 kg (152 lb 6.4 oz) 09/25/2020 12:56 PM CDT Height 157.5 cm (5' 2) 09/25/2020 12:56 PM CDT Body Mass Index 27.87 09/25/2020 12:56 PM CDT Plan of Treatment Health Maintenance Due Date Last Done Comments COVID-19 vaccine series (#1) 1945 Tdap 01/11/1955 Depression screening for age 12+ 1956 Hepatitis C screening for age 18-79 01/11/1962 Tetanus booster 1964 Zoster (shingles) series for age 50+ (1 of 2) 01/11/1994 DEXA/DXA scan for age 65+ 01/11/2009 Medicare Wellness for age 65+ 01/11/2009 Pneumococcal series for age 65+ (1 - PCV) 01/11/2009 BMI (ht and wt on same day) for age 18+ 09/25/2021 09/26/19 21 Influenza for age 65+ 12/25/2021 Results Not on filefrom Last 3 Months Insurance Payer Benefit Plan / Subscriber ID Effective Dates Phone Addre ss Type Group MEDICARE PART B MEDICARE PART B [id number] 2012-Present ATTN: CLAIMS - HB USE ONLY HB ONLY [address] [place] [address] MEDICARE PART A MEDICARE PART A [id number] 2008-Present ATTN: CLAIMS - HB USE ONLY HB ONLY [address] [place] [address] MEDICARE PART B MEDICARE PART B [id number] 2008-Present ATTN: CLAIMS - HB USE ONLY HB ONLY [address] [place] [address] MEDICA MEDICA PRIME [id number] 2012-Present [address] [address] [place] [address] MEDICA MR MEDICA PRIME [id number] 2017-Present [address] [address] [place] [address] MEDICA MR MR MEDICA PRIME [id number] 2013-Present [address] [address] [place] [address] Kathy Barajas Personal/Family Self [phone] (Home) [place] [address] Care Teams Medical Referral Coordinator Relationship Specialty Start Date End Date Abida Martell MD PCP - General Internal Medicine 12/29/121999 [place] [address]
--- OUTSIDE RECORDS SUMMARY | 2022-02-04 13:00 | XMS_ITS | Encounter Summary ---
:1945 Author Organization [facility] Address [address] [place] [address] Care Team Providers Name Role Phone Abida Martell MD Primary Care Provider Encounter Details Date Type Department Care Team Description 09/12/2015 Imaging [facility] Aftercare following surgery of [address] the musculoskeletal system [place], [place] [address] Social History Tobacco Use Types Packs/Day Years Used Date Smoking Tobacco: Never Assessed Sex Assigned at Date Recorded Not on file documented as of this encounter Plan of Treatment Not on filedocumented as of this encounter Procedures Procedure Name Priority Date/Time Associated Diagnosis Comme nts XR TOE RT 1ST Routine 09/12/2015 1:11 PM Aftercare following R esults for this GREAT 3 VIEWS CDT surgery of the procedure ar e in musculoskeletal system the r esults section. documented in this encounter Results XR Toe Rt 1st Great (09/12/2015 1:11 PM CDT) Anatomical Region Laterality Modality Lower Extremity, Foot, Foot & Ankle Othe r Specimen (Source) Anatomical Location Collection Method / Collectio n Time Received Time / Laterality Volume Narrative 09/16/2015 4:51 PM CDT Three views coned right hallux radiographs. Patient is 4 weeks status post ORIF of a comminuted intraarticular fracture of the head of the proximal phalanx with a history of significant displacement. K- wires are noted once again to the proxim al phalanx head. The lateral K-wire has retrograded when compared to previous radiographs. The fracture lines are difficult to discern indicative of progressive bony incorporation. There is anatomic alignment noted. Radiographic Impression: At 4 weeks stat us post ORIF of a comminuted fracture of the distal phalanx right hallux with anatomic alignment, progressive bony incorporation, retrograde position of the lateral K-wire. Procedure Note Alonso Gutierrez, ANGEL - 11/04/2015Format ting of this note might be different from the original. Three views coned right hallux radiograp hs. Patient is 4 weeks status post ORIF of a comminuted intraarticular fracture of the head of the proximal phalanx with a history of significant displacement. K-wires are noted once again to the proximal phalanx head. The lateral K-wire has retrograded when compared to previous radiographs. The fracture lines are difficult to discern indicative of progressive bony incorporation. There is anatomic alignment noted. Radiographic Impression: At 4 weeks stat us post ORIF of a comminuted fracture of the distal phalanx right hallux with anatomic alignment, progressive bony incorporation, retrograde position of the lateral K-wire. Alonso Gutierrez DPM RAD GD documented in this encounter Visit Diagnoses Diagnosis Aftercare following surgery [facility] Aftercare following surgery of the [facility], [facility] documented in this encounter Care Teams Vegetable Tester Relationship Specialty Start Date End Date Abida Martell MD PCP - General 11/28/12[address] [place] [address] documented as of this encounter
--- OUTSIDE RECORDS SUMMARY | 2022-02-04 13:00 | XMS_ITS | Encounter Summary ---
:1945 [facility] Address [address] [place] [address] Care Team Providers Name Role Phone Abida Martell MD Primary Care Provider Reason for Visit Reason Comments Foot Pain Encounter Details Date Type Department Care Team Description 08/13/2015 Office Visit [facility] Closed displaced fracture of proximal phalanx of right great toe, initial encounter (Primary Dx); PHAN Corrales MD Toe pain, right [address] [place] [address] [place], [place] [phone] (Wo rk) Social History Tobacco Use Types Packs/Day Years Used Date Smoking Tobacco: Never Assessed Sex Assigned at Date Recorded Not on file documented as of this encounter Progress Notes Capri Pereyra MD - 08/14/2015 10:17 AM CDT Progress Notes signed by Capri Pereyra MD at 08/20/15904 Author: Capri Pereyra MD Service: (none) Author Type: Physician Filed: 08/20/15904 Note Time: 08/16/15 1243 Status: Signed Offal Worker: Capri Pereyra MD (Physician) NAME: KATHY MCKEON MR#: [id number] CSN: [id number] AUTHENTICATING CLINICIAN: Capri Pereyra MD CONFIRM #: [id number] LOC: 711 CLINIC PROGRESS NOTE DATE OF VISIT: 08/13/2015 : 1945 CHIEF COMPLAINT: Right great toe fracture. HPI: This 70-year-old female injured her right great toe on 08/11/2015 when she tripped over a dog gate landing with her chest wall on the gate. She was frustrated that she fell, and when she got up she kicked the gate with her foot, which was what caused the injury to the great toe. She was seen at [facility] where x-rays of her great toe were obtained. There was a displaced fracture, and she was given a postop shoe but has not been comfortable in it, an so has just been wearing her sandals. She does have a tall Cam boot at home from prior bunion surgery and thinks she might be more comfortable in that. She was referred here for further evaluation. REVIEW OF SYSTEMS: Positive for weight loss, contacts, psoriasis, joint pain, arthritis, fractures, chronic back pain, anxiety, vertigo. Complete review of systems otherwise negative. PAST MEDICAL HISTORY: CURRENT MEDICAL CONDITIONS: Psoriasis, vertigo, meralgia paresthetica. PREVIOUS SURGERIES: Bunion surgery, tonsillectomy. MEDICATIONS: Enbrel 50 mg 2 times a week, atenolol, hydrochlorothiazide, [place]. ALLERGIES: CELEBREX, LISINOPRIL, SULFA. SOCIAL HISTORY: She is a former smoker and quit on 08/13/2013. She is retired. FAMILY HISTORY: Grandparent with diabetes. Mother, father, and grandparent with arthritis including rheumatoid and osteoarthritis. PHYSICAL EXAM: GENERAL: Alert, in no apparent distress. MUSCULOSKELETAL: Right great toe: Swelling over the dorsal aspect of the great toe and tenderness to palpation over the proximal phalanx. Limited range of motion. SKIN: No rash. NEURO: Distal neurovascular exam normal. IMAGING: Three views of the right foot previously obtained at an outside institution independently reviewed by me with a new lateral view of the great toe with hallux elevated obtained today. Reveals a displaced, comminuted and angulated fracture of the distal aspect of the great toe with intraarticular extension. There is a chronic healed 1st metatarsal osteotomy with screw fixation in place. ASSESSMENT: 1. Right great toe fracture. PLAN: 1. Reviewed x-rays with Dr. Gutierrez who recommended surgical intervention. 2. She will continue symptomatic care measures and wear a Cam boot for comfort and protection. 3. She will obtain a preoperative physical exam from her primary physician and further management will be through Dr. Gutierrez. HLB:MADHAV C: R:08/14/15 10:28 CONFIRM#:[id number] documented in this encounter Plan of Treatment Not on filedocumented as of this encounter Visit Diagnoses Diagnosis Closed displaced fracture of proximal ph alanx of right great toe, initial encounter - Primary Toe pain, right Pain in limb documented in this encounter Care Teams Blanket Inspector Relationship Specialty Start Date End Date Abida Martell MD PCP - General 11/28/[address] [place] [address] documented as of this encounter
--- OUTSIDE RECORDS SUMMARY | 2022-02-04 13:00 | XMS_ITS | Encounter Summary ---
:1945 Author Organization [facility] Address [address] [place] [address] Care Team Providers Name Role Phone Abida Martell MD Primary Care Provider Reason for Visit Reason Comments Neck Pain Encounter Details Date Type Department Care Team Description 12/12/2012 Office Visit Tor[facility] spondylosis CENTER without myelopathy [address] [place] [address] (Primary Dx) [place], [place] [address] [place], [place] [phone] (Wo rk) Social History Tobacco Use Types Packs/Day Years Used Date Smoking Tobacco: Never Assessed Sex Assigned at Date Recorded Not on file documented as of this encounter Last Filed Vital Signs Vital Sign Reading Time Taken Comments Blood Pressure - - Pulse - - Temperature - - Respiratory Rate - - Oxygen Saturation - - Inhaled Oxygen Concentration - - Weight 78.5 kg (173 lb) 12/12/2012 2:28 PM CDT Height 158.8 cm (5' 2.5) 12/12/2012 2:28 PM CDT Body Mass Index 31.14 12/12/2012 2:28 PM CDT documented in this encounter Patient Instructions Patient InstructionsDaKendrick lu MA - 12/12/2012 3:[address] Torito Marks MD Musculoskeletal Medicine Please contact Abby for all administrative questions at [phone] Please contact the Spine Nurse for all medical related questions at [phone] Please contact your Pharmacy for all medication refill requests documented in this encounter Progress Notes Torito Marks MD - 12/12/2012 3:21 PM CDT Progress Notes signed by Torito Marks MD at 12/14/12 1805 Author: Torito Marks MD Service: (none) Author Type: Physician Filed: 12/14/12 8492 Note Time: 12/14/121406 Status: Signed Dietary Supervisor: Torito Marks MD (Physician) NAME: KATHY MCKEON VISIT: [id number] DICTATING CLINICIAN: TORITO MARKS MD JOB: [id number] Med JOB: [id number] LOC: 3711 CLINIC PROGRESS NOTE DATE OF VISIT: 12/12/2012 : 1945 CHIEF COMPLAINT: Follow up right arm pain. HISTORY OF PRESENT ILLNESS: Kathy is a very pleasant and straightforward 67-year-old woman who I have seen of late with complaints of pain and numbness extending down her right arm. She has numbness into the 4th and 5th fingers. Updated MRI imaging was obtained and she comes in today to review results. Since I last saw Kathy her symptoms have remained unchanged. She has continuing posterior right shoulder pain and pain at the proximal right arm as well as discomfort and numbness into the right 4th and 5th fingers. Kathy's MRI confirms a moderately large disk osteophyte complex resulting in severe foraminal stenosis at C5-6 and compression of the right hemicord. At C7-T1 she is completely normal. Kathy has a positive Tinel at the right elbow. I explained to Kathy and her that I cannot explain all of her symptoms, in particular the right 4th and 5th finger numbness, based off of her cervical spine MRI. I certainly cannot explain the posterior shoulder and proximal arm pain from the C6-7 disk osteophyte complex. We will therefore proceed with initially EMG studies with Dr. Oh Rhoades. She will follow up with me after the EMG. I have warned her that we may also need to consider a right C6 selective nerve root block also in the future. We will hold off on that pending the EMG results. 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 TT: 25 CT: 15 cc: Oh Rhoades MD IM: 12/12/2012 03:53:15 pm MT: 18 Mail to: Oh Rhoades MD documented in this encounter Plan of Treatment Not on filedocumented as of this encounter Visit Diagnoses Diagnosis Cervical spondylosis without myelopathy (HRC) - Primary Cervical spondylosis without myelopathy documented in this encounter Care Teams Redrying Machine Operator Relationship Specialty Start Date End Date Abida Martell MD PCP - General 11/28/[address] [place] [address] documented as of this encounter
--- OUTSIDE RECORDS SUMMARY | 2022-02-04 13:00 | XMS_ITS | Encounter Summary ---
:1945 Author Organization [facility] Address [address] [place] [address] Care Team Providers Name Role Phone Abida Martell MD Primary Care Provider Reason for Visit Reason Comments CONSULT Encounter Details Date Type Department Care Team Description 01/18/2013 Surgical Consult [facility] Nelly Wallace pain (Primary Dx); [facility] Trigger finger (acquired); [address] [place] [address] Ulnar neuropathy; [place], [place] CTS (carp al tunnel syndrome) [id number] [phone] Social History Tobacco Use Types Packs/Day Years Used Date Smoking Tobacco: Never Assessed Sex Assigned at Date Recorded Not on file documented as of this encounter Last Filed Vital Signs Vital Sign Reading Time Taken Comments Blood Pressure 171/90 01/18/2013 3:17 PM CDT Pulse - - Temperature - - Respiratory Rate - - Oxygen Saturation - - Inhaled Oxygen Concentration - - Weight 79.2 kg (174 lb 9.6 oz) 01/18/2013 3:17 PM CDT Height 160 cm (5' 3) 01/18/2013 3:17 PM CDT Body Mass Index 30.93 01/18/2013 3:17 PM CDT documented in this encounter Patient Instructions Patient InstructionsEllen Pickens - 01/18/2013 3:[address] Nelly Wallace MD Hand & Upper Extremity Surgeon Lombardi Developer: Noa Gomez Please contact Noa for all surgery scheduling and administrative questions at [phone] Please contact Nurse Triage for all medical related questions at [phone] Please contact your Pharmacy for all medication refill requests Patient to schedule surgery. documented in this encounter Progress Notes Nelly Wallace MD - 01/18/2013 4:10 PM CDT Progress Notes signed by Nelly Wallace MD at 01/25/131605 Author: Nelly Wallace MD Service: (none) Author Type: Physician Filed: 01/25/13 1606 Note Time: 01/24/13852 Status: Signed Ranch Helper: Nelly Wallace MD (Physician) NAME: KATHY MCKEON VISIT: [id number] DICTATING CLINICIAN: NELLY WALLACE MD JOB: [id number] Med JOB: [id number] LOC: 3711 CLINIC PROGRESS NOTE DATE OF VISIT: 01/18/2013 : 1945 SUBJECTIVE: Kathy Mckeon is a 68-year-old right-hand dominant retired woman who presents for evaluation and management of right thumb pain and catching and numbness in the hand. Kathy thought the problem was coming from her neck when she was trail riding on her horse and began to develop upper extremity pain and paresthesias in the ring and small fingers. She was seen by Dr. Torito Marks. She underwent electrodiagnostic testing which documents ulnar neuropathy at the elbow without evidence of denervation. These symptoms have been present for about two years. For the last two months Kathy has had painful catching of her right thumb. This seems to be worsening. She has difficulty with pinching, gripping, and picking things up. She has not noted specific weakness. When the pain does occur, it is quite sharp in the thumb. Over the last few months she has also developed numbness in the rest of the hand. Her symptoms increase with resting the elbow on a firm surface. Years ago she had carpal tunnel syndrome during surgery and can remember what the hand felt like then. She feels that these symptoms may be similar to what she had back then. She has received no specific treatment. PAST HISTORY: Positive for hypertension, anxiety, osteoporosis, and psoriasis. ADR/ALLERGIES: Documented, reviewed, and updated in Epic. MEDICATIONS: Documented, reviewed, and updated in Epic. SOCIAL HISTORY: Lives with her , nonsmoker, has a drink daily. REVIEW OF SYSTEMS: System review is positive for ringing in the ears, vertigo, weight gain, high blood pressure, chronic back and joint pain, and anxiety and depression. OBJECTIVE: The patient is a well-nourished, healthy-appearing middle-aged woman. Gait normal, affect appropriate, alert and oriented x3. There was no generalized upper extremity edema with no rashes, atrophy, adenopathy, or deformity bilaterally. Radial pulses were 4+ regular and equal. There was a positive Tinel sign over the right ulnar nerve in the cubital tunnel along with a positive elbow flexion test. There was no wasting or weakness in the median or ulnar innervated intrinsic musculature. Static two-point discrimination measured 5 mm in all digits. There was a positive Tinel sign over the right median nerve at the wrist along with a positive Phalen test. The carpal compression test was negative. There is a very tender right FPL nodule with painful triggering of the thumb. There is a negative grind test. Electrodiagnostic studies document ulnar neuropathy at the elbow. There is no evidence of radiculopathy or carpal tunnel syndrome. RADIOGRAPHS: X-rays were ordered and independently reviewed by me. Right thumb. Indications: Pain. Right thumb: There are minimal changes of osteoarthritis of the carpometacarpal joint. ASSESSMENT: 1. Severe right trigger thumb. 2. Ulnar neuropathy, right elbow. 3. Right carpal tunnel syndrome with negative electrodiagnostic studies. PLAN: I had a long discussion with Kathy with regard to the problems and her treatment options. It has been elected to proceed with right ulnar nerve decompression at the elbow, right trigger thumb release, and carpal tunnel release. The risks and benefits of surgery have been explained to and accepted by the patient. cc: TORITO MARKS MD IM: 01/18/2013 04:24:28 pm MT: 11 documented in this encounter Plan of Treatment Not on filedocumented as of this encounter Visit Diagnoses Diagnosis Thumb pain - Primary Pain in limb Trigger finger (acquired) Ulnar neuropathy Lesion of ulnar nerve CTS (carpal tunnel syndrome) Carpal tunnel syndrome documented in this encounter Care Teams Ice House Supervisor Relationship Specialty Start Date End Date Abida Martell MD PCP - General 11/28/[address] [place] [address] documented as of this encounter
--- OUTSIDE RECORDS SUMMARY | 2022-02-04 13:00 | XMS_ITS | Encounter Summary ---
:1945 Author Organization [facility] Address [address] [place] [address] Care Team Providers Name Role Phone Abida Martell MD Primary Care Provider Encounter Details Date Type Department Care Team Description 08/14/2015 Notes/Orders [facility] Brenda, Alonso W, Az y, elective CENTER DPM (Primary Dx) [address] [place] [address] [place], [place] [phone] (Wo rk) Social History Tobacco Use Types Packs/Day Years Used Date Smoking Tobacco: Never Assessed Sex Assigned at Date Recorded Not on file documented as of this encounter Plan of Treatment Not on filedocumented as of this encounter Visit Diagnoses Diagnosis Surgery, elective - Primary Unspecified elective surgery for purpose s other than remedying health states documented in this encounter Care Teams Fruit Grower Relationship Specialty Start Date End Date Abida Martell MD PCP - General 11/28/[address] [place] [address] documented as of this encounter
--- OUTSIDE RECORDS SUMMARY | 2022-02-04 13:00 | XMS_ITS | Encounter Summary ---
:1945 [facility] Address [address] [place] [address] Care Team Providers Name Role Phone Abida Martell MD Primary Care Provider Encounter Details Date Type Department Care Team Description 01/18/2013 Orders Only [facility] [address] TER , Pablo Stout MD [address] [place] [address] [place] [address] [phone] (Wo rk) Social History Tobacco Use Types Packs/Day Years Used Date Smoking Tobacco: Never Assessed Sex Assigned at Date Recorded Not on file documented as of this encounter Plan of Treatment Not on filedocumented as of this encounter Visit Diagnoses Not on filedocumented in this encounter Care Teams Dye House Wheel Operator Relationship Specialty Start Date End Date Abida Martell MD PCP - General 11/28/[address] [place] [address] documented as of this encounter
--- OUTSIDE RECORDS SUMMARY | 2022-02-04 13:00 | XMS_ITS | Encounter Summary ---
:1945 Author Organization [facility] Address [address] [place] [address] Care Team Providers Name Role Phone Abida Martell MD Primary Care Provider Encounter Details Date Type Department Care Team Description 09/25/2015 Imaging [facility] Aftercare following surgery of [address] [address] the musculoskeletal system [place], [place] [address] Social History Tobacco Use Types Packs/Day Years Used Date Smoking Tobacco: Never Assessed Sex Assigned at Date Recorded Not on file documented as of this encounter Plan of Treatment Not on filedocumented as of this encounter Procedures Procedure Name Priority Date/Time Associated Diagnosis Comme nts XR TOE RT 1ST Routine 09/25/2015 11:45 Aftercare following Res ults for this GREAT 3 VIEWS AM CDT surgery of the procedure ar e in musculoskeletal system the r esults section. documented in this encounter Results XR Toe Rt 1st Great (09/25/2015 11:45 AM CDT) Anatomical Region Laterality Modality Lower Extremity, Foot, Foot & Ankle Othe r Specimen (Source) Anatomical Location Collection Method / Collectio n Time Received Time / Laterality Volume Narrative 09/30/2015 10:06 PM CDT Three views cone right hallux. Patient is 6 weeks status post ORIF comm inuted fracture of the distal aspect proximal phalanx. The fracture lines are much less distinc t when compared to previous radiographs, indicative of progressive bony incorporation. Alignment is unchanged and well maintained. Radiographic Impression: Six weeks statu s post ORIF of comminuted intraarticular head of the proximal phalanx fracture right hallux, with progressive bony incorporation with alignment well-maintained. Procedure Note Alonso Gutierrez DPM - 08/29/2016Format ting of this note might be different from the original. Three views cone right hallux. Patient is 6 weeks status post ORIF comm inuted fracture of the distal aspect proximal phalanx. The fracture lines are much less distinc t when compared to previous radiographs, indicative of progressive bony incorporation. Alignment is unchanged and well maintained. Radiographic Impression: Six weeks statu s post ORIF of comminuted intraarticular head of the proximal phalanx fracture right hallux, with progressive bony incorporation with alignment well-maintained. Alonso Gutierrez DPM RAD GD documented in this encounter Visit Diagnoses Diagnosis Aftercare [facility] documented in this encounter Care Teams Loan Operations Specialist Relationship Specialty Start Date End Date Abida Martell MD PCP - General 11/28/[address] [place] [address] documented as of this encounter
--- OUTSIDE RECORDS SUMMARY | 2022-02-04 13:00 | XMS_ITS | Encounter Summary ---
:1945 Author Organization [facility] Address [address] [place] [address] Care Team Providers Name Role Phone Abida Martell MD Primary Care Provider Encounter Details Date Type Department Care Team Description 08/11/2015 Imaging [id number] RADIOLOGY [facility] [address] [place] [address] Social History Tobacco Use Types Packs/Day Years Used Date Smoking Tobacco: Never Assessed Sex Assigned at Date Recorded Not on file documented as of this encounter Plan of Treatment Not on filedocumented as of this encounter Procedures Procedure Name Priority Date/Time Associated Diagnosis Comme nts FOREIGN IMAGE(S) XR Routine 08/11/2015 12:00 AM R esults for this EXTREMITY RT CDT procedure are i n the results section. documented in this encounter Results Foreign Image(S) XR Extremity Rt (08/11/2015 12:00 AM CDT) Anatomical Region Laterality Modality Other Specimen (Source) Anatomical Location Collection Method / Collectio n Time Received Time / Laterality Volume Narrative 08/13/2015 2:55 PM CDT These outside images have been uploaded into PACS. If the results were provided, they will be located on the Media tab in the patient's chart. Procedure Note Conversion, Imr - 03/12/2016Formatting o f this note might be different from the original. These outside images have been uploaded into PACS. If the results were provided, they will be located on the Media tab in the patient's chart. Foreign Images Provider RAD NON-REPORTABLES documented in this encounter Visit Diagnoses Not on filedocumented in this encounter Care Teams Electronics Worker Relationship Specialty Start Date End Date Abida Martell MD PCP - General 11/[address] [place] [address] documented as of this encounter
--- OUTSIDE RECORDS SUMMARY | 2022-02-04 13:00 | XMS_ITS | Encounter Summary ---
:1945 Author Organization [facility] Address [address] [place] [address] Care Team Providers Name Role Phone Abida Martell MD Primary Care Provider Encounter Details Date Type Department Care Team Description 11/28/2012 Imaging [facility] MRI Neck pain [address] [place], [place] [address] Social History Tobacco Use Types Packs/Day Years Used Date Smoking Tobacco: Never Assessed Sex Assigned at Date Recorded Not on file documented as of this encounter Plan of Treatment Not on filedocumented as of this encounter Procedures Procedure Name Priority Date/Time Associated Diagnosis Comme nts MR CERVICAL SPINE Routine 11/28/2012 4:40 PM Neck pain Resu lts for this WO IV CONT CDT procedure are i n the results section. documented in this encounter Results MR Cervical Spine WO IV Cont (11/28/2012 4:40 PM CDT) Anatomical Region Laterality Modality Spine, C-Spine, Neck, Vascular Other Specimen (Source) Anatomical Location Collection Method / Collectio n Time Received Time / Laterality Volume Impressions 11/28/2012 4:42 PM CDT IMPRESSION: ?? Multilevel spinal canal and neural pako inal stenosis as above worse at the C5-6 level secondary to a large disk osteophyte complex causing moderate spinal canal stenosis with compression of the right hemicord and uncovertebral joint arthropathy contributing to severe right and moderat uziel severe left neural foraminal narrowing. ??In addition, at C4-5 there is mild spinal canal stenosis secondary to a disk osteophyte complex and severe bilateral neural foraminal narrowing secondary to uncovertebral joint arthropathy. ?? Narrative 11/28/2012 4:42 PM CDT INDICATION: Neck pain TECHNIQUE: ??MRI of the cervical spine w ithout contrast. COMPARISON: ??None. FINDINGS: ??The visualized midline poste rior fossa structures are unremarkable. ??Normal cord signal. ??Normal marrow signal. ??Normal alignment. There appears to be congenitally short pedicles throughout the mid cervical spine. ?? Axial: C2-3: No neuroforaminal or spinal canal narrowing. C3-4: There is a small disk osteophyte c omplex with uncovertebral joint arthropathy contributing to mild right neuroforaminal narrowing. ?? C4-5: There is a disk osteophyte complex contributing to mild spinal canal stenosis with anterior impression of the thecal sac. ??There is severe bilateral neural foraminal narrowing at this level. ?? C5-6: There is a disk osteophyte complex contributing to moderate spinal canal stenosis with anterior impression on the thecal sac, and a portion of this complex is in the right paracentral region contr ibuting to severe right neuroforaminal n arrowing and compression of the right hemicord. ??Th ere is moderately severe left neural foraminal narrowing at this level. ?? C6-7: There is moderate left and mild ri ght neuroforaminal narrowing secondary to uncovertebral joint arthropathy. ?? C7-T1: No neuroforaminal or spinal canal narrowing. Procedure Note Anaya Tierney MD - 10/12/2015Formattin g of this note might be different from the original. INDICATION: Neck pain TECHNIQUE: MRI of the cervical spine wit hout contrast. COMPARISON: None. FINDINGS: The visualized midline posteri or fossa structures are unremarkable. Normal cord signal. Normal marrow signal. Normal alignment. There appears to be congenitally short pedicles throughout the mid cervical spine. Axial: C2-3: No neuroforaminal or spinal canal narrowing. C3-4: There is a small disk osteophyte c omplex with uncovertebral joint arthropathy contributing to mild right neuroforaminal narrowing. C4-5: There is a disk osteophyte complex contributing to mild spinal canal stenosis with anterior impression of the thecal sac. There is severe bilateral neural foraminal narrowing at this level. C5-6: There is a disk osteophyte complex contributing to moderate spinal canal stenosis with anterior impression on the thecal sac, and a portion of this complex is in the right paracentral region contributing to severe right neuroforaminal narrowing and compression of the right hemicord. Ther e is moderately severe left neural foraminal narrowing at this level. C6-7: There is moderate left and mild ri ght neuroforaminal narrowing secondary to uncovertebral joint arthropathy. C7-T1: No neuroforaminal or spinal canal narrowing. IMPRESSION IMPRESSION: Multilevel spinal canal and neural pako inal stenosis as above worse at the C5-6 level secondary to a large disk osteophyte complex causing moderate spinal canal stenosis with compression of the right hemicord and uncovertebral joint arthropathy contributing to severe right and moderat uziel severe left neural foraminal narrowing. In addition, at C4-5 there is mild spinal canal stenosis secondary to a disk osteophyte complex and severe bilateral neural foraminal narrowing secondary to uncovertebral joint arthropathy. Leandro Vizcarra MD RAD MRI documented in this encounter Visit Diagnoses Diagnosis Neck pain Cervicalgia documented in this encounter Care Teams Airways Control Specialist Relationship Specialty Start Date End Date Abida Martell MD PCP - General 11/28/[address] [place] [address] documented as of this encounter
--- OUTSIDE RECORDS SUMMARY | 2022-02-04 13:00 | XMS_ITS | Encounter Summary ---
:1945 Author Organization [facility] Address [address] [place] [address] Care Team Providers Name Role Phone Abida Martell MD Primary Care Provider Reason for Visit Reason Comments ARM PAIN Encounter Details Date Type Department Care Team Description 01/04/2013 Office Visit [facility] Torito Marks Ulna r neuropathy CENTER (Primary Dx) [address] [place] [address] [place] [address] [place], [place] [phone] (Wo rk) Social History Tobacco Use Types Packs/Day Years Used Date Smoking Tobacco: Never Assessed Sex Assigned at Date Recorded Not on file documented as of this encounter Patient Instructions Patient InstructionsKendrick Iyer MA - 01/04/2013 11:[address] Torito Marks MD Musculoskeletal Medicine Please contact [facility] for all administrative questions at [phone] Please contact the Spine Nurse for all medical related questions at [phone] Office Hours: Wednesday-Wednesday and AM Please contact your Pharmacy for all medication refill requests prior to Wednesday. Please allow 24 hours. documented in this encounter Progress Notes Torito Marks MD - 01/04/2013 1:26 PM CDT NAME: KATHY MCKEON VISIT: [id number] DICTATING CLINICIAN: TORITO MARKS MD JOB: [id number] Med JOB: [id number] LOC: 3711 CLINIC ADDENDUM DATE OF VISIT: 01/04/2013 : 1945 ADDENDUM: A copy of Dr. Rhoades's EMG report will be placed in OnBase. MT: 3 IM: 01/04/2013 04:04:52 pm Torito Marks MD - 01/04/2013 1:26 PM CDT Progress Notes signed by Torito Marks MD at 01/09/13 0756 Author: Torito Marks MD Service: (none) Author Type: Physician Filed: 01/09/13 0756 Note Time: 01/06/13 101 Status: Signed Mechanical Engineering Officer: Torito Marks MD (Physician) NAME: KATHY MCKEON VISIT: [id number] DICTATING CLINICIAN: TORITO MARKS MD JOB: [id number] Med JOB: [id number] LOC: 3711 CLINIC PROGRESS NOTE DATE OF VISIT: 01/04/2013 : 1945 CHIEF COMPLAINT: Follow up cervical disc protrusion. HISTORY OF PRESENT ILLNESS: Kathy is a very pleasant and straightforward 67-year-old woman who I have seen in the past with radicular right arm pain as well as numbness extending into the right 4th and 5th fingers. MRI imaging has confirmed a moderately large disc osteophyte complex resulting in severe foraminal stenosis and compression of the right katarina-cord at C5-6 symptoms. At C7-T1 she is completely normal. She does not have any myelopathy symptoms although does admit some balance issues. There is no cord signal change on her scan. I had earlier explained to Kathy that I could not really reliably explain to her the right 4th and 5th ulnar border hand numbness she was having from her cervical spine MRI. I was clinically suspicious that she had more of a peripheral ulnar neuropathy symptom. She does also report some medial elbow discomfort as well. I sent her to Dr. Oh Rhoades MD for EMG studies of the upper extremities. She comes in today to review those results. Her EMG confirms peripheral ulnar neuropathy. Kathy also tells me today that she has been having a lot of trouble with pain to the right thumb. She has considerable DJD, I think, of the MCP joint. I have told her that I want her to see Dr. Dickson Wallace for his opinion not only regarding her thumb, but also the ulnar neuropathy. With regard to her neck she would likely require an ACDF and she obviously wants to hold off on that and I think the peripheral symptoms should be dealt with first. We will see what Dr. Wallace's recommendations are and she will follow up with me after that. FINAL ASSESSMENT: Ulnar peripheral neuropathy. TT 25. CT 15. cc: NELLY WALLACE MD IM: 01/04/2013 04:04:50 pm MT: 11 documented in this encounter Plan of Treatment Not on filedocumented as of this encounter Visit Diagnoses Diagnosis Ulnar neuropathy - Primary Lesion of ulnar nerve documented in this encounter Care Teams Dramatic Critic Relationship Specialty Start Date End Date Abida Martell MD PCP - General [address] [place] [address] documented as of this encounter
--- OUTSIDE RECORDS SUMMARY | 2022-02-04 13:00 | XMS_ITS | Encounter Summary ---
:1945 Author [facility] Address [address] [place] [address] Care Team Providers Name Role Phone Abida Martell MD Primary Care Provider Reason for Visit Reason Comments Post Op Exam Encounter Details Date Type Department Care Team Description 02/02/2013 [facility] [place] examination, [address] [facility] [address] [facility] [address] [facility] [address] [place] [address] DR following unspecified [place], [place] [address] [place], [place] surgery (Primary Dx) [phone] (Wo rk) Social History Tobacco Use Types Packs/Day Years Used Date Smoking Tobacco: Never Assessed Sex Assigned at Date Recorded Not on file documented as of this encounter Patient Instructions Patient InstructionsAnaya Baird - 02/02/2013 2:12 PM CDT Gracia Lea PA-C Upper Extremity Physician B2B Managed Service Sales Exec Gardener Florist: Noa Gomez Please contact Noa for all administrative questions at [phone] Please contact Nurse Triage for all medical related questions at [phone] Please contact your Pharmacy for all medication refill requests Please follow up with Hand Therapy. documented in this encounter Progress Notes Gracia Lea PA-C - 02/02/2013 2:13 PM CDT Patient is s/p right carpal tunnel release, trigger thumb release and ulnar nerve decompression at the elbow. Pain controlled, no complaints.numbness and tingling improving. Benign incision, no drainage. Full AROM of digits. Sensation to light touch intact. Plan: Pt sent to [facility] today, will follow post-op protocol. Nerve glides and returning to normal activity. She followup with issues. documented in this encounter Plan of Treatment Not on filedocumented as of this encounter Visit Diagnoses Diagnosis Follow-up examination, following unspeci fied surgery - Primary documented in this encounter Care Teams Deck Cadet Relationship Specialty Start Date End Date Abida Martell MD PCP - General [address] [place] [address] documented as of this encounter
--- OUTSIDE RECORDS SUMMARY | 2022-02-04 13:00 | XMS_ITS | Encounter Summary ---
:1945 Author Organization [facility] Address [address] [place] [address] Care Team Providers Name Role Phone Abida Martell MD Primary Care Provider Encounter Details Date Type Department Care Team Description 08/13/2015 Imaging [facility] Toe pain, right [address] [place], [place] [address] Social History Tobacco Use Types Packs/Day Years Used Date Smoking Tobacco: Never Assessed Sex Assigned at Date Recorded Not on file documented as of this encounter Plan of Treatment Not on filedocumented as of this encounter Procedures Procedure Name Priority Date/Time Associated Diagnosis Comme nts XR TOE RT 1ST GREAT Routine 08/13/2015 3:31 PM Toe pain, right Results for this 3 VIEWS CDT procedure are i n the results section. documented in this encounter Results XR Toe Rt 1st Great (08/13/2015 3:31 PM CDT) Anatomical Region Laterality Modality Lower Extremity, Foot, Foot & Ankle Othe r Specimen (Source) Anatomical Location Collection Method / Collectio n Time Received Time / Laterality Volume Narrative 08/13/2015 3:36 PM CDT COMPARISON: ??Outside foot radiographs from 08/11/2015 FINDINGS: ??Comminuted angulated fractur e of the distal aspect of the great toe proximal phalanx. The distal fragment is displaced dorsally with a significant angulation apex plantar at the level of the fracture. Chronic healed first metatars al osteotomy with single screw fixation. Procedure Note Raphael Lux MD - 10/12/2015 COMPARISON: Outside foot radiographs fro 08/11/2015 FINDINGS: Comminuted angulated fracture of the distal aspect of the great toe proximal phalanx. The distal fragment is displaced dorsally with a significant angulation apex plantar at the level of the fracture. Chronic healed first metatarsal osteotomy with single screw fixation. Capri Pereyra MD RAD GD documented in this encounter Visit Diagnoses Diagnosis Toe pain, right Pain in limb documented in this encounter Care Teams Environmental Engineer Relationship Specialty Start Date End Date Abida Martell MD PCP - General 11/28/[address] [place] [address] documented as of this encounter
--- OUTSIDE RECORDS SUMMARY | 2022-02-04 13:00 | XMS_ITS | Encounter Summary ---
:1945 Author Organization [facility] Address [address] [place] [address] Care Team Providers Name Role Phone Abida Martell MD Primary Care Provider Reason for Visit Reason Comments Neck Pain Encounter Details Date Type Department Care Team Description 11/28/2012 Surgical Consult Torito Sharp pain (Primary Dx); PHAN AMD Cervical spondylosis without myelopathy [address] [facility] [address] [place] [address] Dr [place], [place] [address] [phone] Social History Tobacco Use Types Packs/Day Years Used Date Smoking Tobacco: Never Assessed Sex Assigned at Date Recorded Not on file documented as of this encounter Last Filed Vital Signs Vital Sign Reading Time Taken Comments Blood Pressure 146/78 11/28/2012 1:51 PM CDT Pulse - - Temperature - - Respiratory Rate - - Oxygen Saturation - - Inhaled Oxygen Concentration - - Weight 79.8 kg (176 lb) 11/28/2012 1:51 PM CDT Height 161.3 cm (5' 3.5) 11/28/2012 1:51 PM CDT Body Mass Index 30.69 11/28/2012 1:51 PM CDT documented in this encounter Patient Instructions Patient InstructionsKendrick Iyer MA - 11/28/2012 2:[address] Torito Marks MD Musculoskeletal Medicine Please contact Abby for all administrative questions at [phone] Please contact the Spine Nurse for all medical related questions at [phone] Please contact your Pharmacy for all medication refill requests Your Provider would like you to schedule a Follow Up as needed with Dr. Marks Appointment Scheduling: Can be done at the front sight attacher or by calling our main number [phone] documented in this encounter Progress Notes Torito Marks MD - 11/28/2012 2:28 PM CDT Progress Notes signed by Torito Marks MD at 11/30/121 Author: Torito Marks MD Service: (none) Author Type: Physician Filed: 11/30/12 1321 Note Time: 11/30/12955 Status: Signed Emergency Room Registered Nurse: Torito Marks MD (Physician) NAME: KATHY MCKEON VISIT: [id number] DICTATING CLINICIAN: TORITO MARKS MD JOB: [id number] Med JOB: [id number] LOC: 3711 CLINIC PROGRESS NOTE DATE OF VISIT: 11/28/2012 : 1945 CHIEF COMPLAINT: Right side neck and right arm pain. HISTORY OF PRESENT ILLNESS: Kathy is a very pleasant 67-year-old woman who lives in [place], [place]. She is retired. She has had problems for many years with right-sided neck and intrascapular pain. MRI imaging obtained by her primary physician in 2005 shows severe foraminal stenosis and an associated disk bulge at C5-6. She did not have any active treatment at that time and has simply put up with ongoing symptoms. In this past few months she is noticing worsening right-sided neck pain, intrascapular pain, and pain extending down the right arm. She also notes some numbness into the right 4th and 5th fingers. (She has a positive Tinel sign at the right elbow today.) PAST MEDICAL HISTORY: Positive for hypertension and osteopenia. No cancer history. SOCIAL HISTORY: She is . She is retired. REVIEW OF SYSTEMS: Positive for neck and right arm pain as discussed. No skin rashes. No fevers or chills. No unexplained weight loss. PHYSICAL EXAMINATION: Non-myelopathic gait. She has limited extension with increased provocation of symptoms both with extension as well as Spurling's. With her head and neck in neutral position she has normal light touch to all fingers. Normal tank house operator strength, finger abduction strength, wrist flexion and extension as well as biceps, triceps, and deltoid strength. Hands are well perfused. DTRs are normal. PLAN: We will proceed with updated MRI imaging as Kathy is having enough trouble with her neck and arm pain that she would like to proceed with a cervical epidural if I feel that there is reason for that. We will also get her working with physical therapy with [facility], in [place]. She will follow up with me after her scan to go over results and make further plans. FINAL ASSESSMENT: Cervical spondylosis. cc: [facility] IM: 11/28/2012 02:45:25 pm MT: 17 Mail to: [facility] [address] [place] [address] documented in this encounter Plan of Treatment Not on filedocumented as of this encounter Visit Diagnoses Diagnosis Neck pain - Primary Cervicalgia Cervical spondylosis without myelopathy ([facility]) Cervical spondylosis without myelopathy documented in this encounter Care Teams Audit Clerk Relationship Specialty Start Date End Date Abida Martell MD PCP - General 11/28/[address] [place] [address] documented as of this encounter
--- OUTSIDE RECORDS SUMMARY | 2022-02-04 13:00 | XMS_ITS | Encounter Summary ---
:1945 Author Organization [facility] Address [address] [place] [address] Care Team Providers Name Role Phone Unavailable Primary Care Provider Unavailable Reason for Visit Reason Comments Post Op Exam Encounter Details Date Type Department Care Team Description 03/18/2012 Office Visit [facility] Mckenna MD Follow-up CENTER [address] [place] [address] examination, [address] [place], [place] following unspecified [place], [place] [id number] surgery (Primary Dx) [phone] (Wo rk) Social History Tobacco Use Types Packs/Day Years Used Date Smoking Tobacco: Never Assessed Sex Assigned at Date Recorded Not on file documented as of this encounter Patient Instructions Patient InstructionsAde Murillo - 03/18/2012 10:[address] Eric Ellis MD Orthopaedic Surgeon Livestock Ranch Hand: Ade Murillo Please call Ade for all administrative questions at [phone] Orthopaedic Drop Forger Helper: JOSELO Carmona Please contact Nancy for all medical questions at [phone] Please contact your Pharmacy for all medication refill requests Your Provider would like you to schedule a Follow Up for 1 month Appointment Scheduling: Can be done at the front facer or by calling our main number [phone] documented in this encounter Progress Notes Eric Ellis MD - 03/19/2012 9:27 AM CST Progress Notes signed by Eric Ellis MD at 03/22/121728 Author: Eric Ellis MD Service: (none) Author Type: Physician Filed: 03/22/121728 Note Time: 03/19/12926 Status: Signed Personal Companion: Eric Ellis MD (Physician) NAME: KATHY MCKEON VISIT: [id number] DICTATING CLINICIAN: ERIC ELLIS MD JOB: [id number] Med JOB: [id number] LOC: 3711 CLINIC PROGRESS NOTE DATE OF VISIT: 03/18/2012 : 1945 HISTORY: The patient is a 67-year-old female who presents for followup evaluation of her right ankle. She is now about a week postop removal of a syndesmosis screw from her right ankle. She says that the ankle feels somewhat looser for her, although she still has stiffness present. PHYSICAL EXAM: On exam, her incision is healing nicely. The single suture is removed. She has good range of motion of the ankle. She has no instability that I can appreciate. Very good dorsi and plantar flexion strength. ASSESSMENT: Satisfactory postop course. PLAN: At this point she will continue to work on progressive strengthening, progressive ambulation. I should see her back in 4 to 6 weeks with a followup x-ray. IM: 03/19/2012 11:48:47 am MT: 18 OR ORACLE SOA DEVELOPER documented in this encounter Plan of Treatment Not on filedocumented as of this encounter Visit Diagnoses Diagnosis Follow-up examination, following unspeci fied surgery - Primary documented in this encounter
--- OUTSIDE RECORDS SUMMARY | 2022-02-04 13:00 | XMS_ITS | Encounter Summary ---
:1945 Author Organization [facility] Address [address] [place] [address] Care Team Providers Name Role Phone Unavailable Primary Care Provider Unavailable Reason for Visit Reason Comments Post Op Exam Encounter Details Date Type Department Care Team Description 02/04/2012 Office Visit [facility] Eric Beavers MD Unspecified [facility] [address] [facility] fracture of ankle [address] [place], [place] (Primary Dx) [place], [place] [phone] (Wo rk) Social History Tobacco Use Types Packs/Day Years Used Date Smoking Tobacco: Never Assessed Sex Assigned at Date Recorded Not on file documented as of this encounter Patient Instructions Patient InstructionsAde Murillo - 02/04/2012 11:[address] Eric Ellis MD Orthopaedic Surgeon Laborer Filter Plant: Ade Murillo Please call Ade for all administrative questions at [phone] Orthopaedic Retail Shift Manager: JOSELO Carmona Please contact Nancy for all medical questions at [phone] Please contact your Pharmacy for all medication refill requests Partial weight-bearing for two weeks, advance to full weight bearing after two weeks, as tolerated. Follow Up in 4 weeks. Appointment Scheduling can be done at the front desk representative or by calling our main number [phone] documented in this encounter Progress Notes Eric Ellis MD - 02/04/2012 12:04 PM CDT Progress Notes signed by Eric Ellis MD at 02/08/12 1212 Author: Eric Ellis MD Service: (none) Author Type: Physician Filed: 02/08/12 1212 Note Time: 02/04/12 1204 Status: Signed Plant General Manager: Eric Ellis MD (Physician) NAME: KATHY MCKEON VISIT: [id number] DICTATING CLINICIAN: ERIC ELLIS MD JOB: [id number] [facility] JOB: [id number] LOC: 3711 CLINIC PROGRESS NOTE DATE OF VISIT: 02/04/2012 : 1945 HISTORY: The patient is a 67-year-old who presents for a follow up evaluation of her right ankle. She is about 4 weeks status post ORIF of a right fibular fracture with syndesmotic disruption. She also had a posterior malleolar component to that and had that fixed. It was fixed in [place]. She has a clavicle fracture, which predated her ankle fracture by 2-3 weeks. She is not having any symptoms from her clavicle fracture or shoulder. She can lie on that right side and can move her arm without pain. The patient has no symptoms referable to the ankle. She has not had swelling or any pain. She has been using a trolley and has been nonweightbearing on that right lower extremity. PHYSICAL EXAMINATION: On exam her incisions are healing nicely. She has good clinical alignment. She has limited range of motion of the ankle, but no deformity noted. Sensation and pulses are intact. She has good strength in dorsi and plantarflexion. IMAGING: X-rays were obtained and independently reviewed. Three views of the patient's right ankle including AP, lateral, and mortise view. The x-rays demonstrate very satisfactory early healing. The mortise is well maintained. Her syndesmosis screw appears intact. The fracture itself of the distal third of the fibula is going on to satisfactory healing. IMPRESSION: Satisfactory progress status post a Crowe C right ankle fracture. PLAN: At this point, I am going to change her to an Aircast boot. She is to continue to be nonweightbearing and use the trolley with that boot. I do not want her to start full weightbearing until she is 6 weeks postop. I will see her back at 8 weeks postop for a follow up evaluation. I want to take an x-ray of her clavicle also at that time. IM: 02/04/2012 12:10:58 pm MT: 6 documented in this encounter Plan of Treatment Not on filedocumented as of this encounter Procedures Procedure Name Priority Date/Time Associated Diagnosis Comme nts XR ANKLE RT 3 VIEWS Routine 02/04/2012 11:35 AM Unspecified cl osed Results for this CDT fracture of ankle procedure are in the results section. documented in this encounter Results XR Ankle Rt 3 Views (02/04/2012 11:35 AM CDT) Anatomical Region Laterality Modality Lower Extremity, Ankle, Foot & Ankle Oth er Specimen (Source) Anatomical Location Collection Method / Collectio n Time Received Time / Laterality Volume Narrative 02/08/2012 11:49 AM CDT Three views of the patient's right ankle including AP, lateral, and mortise view. ??The x-rays demonstrate v torsten satisfactory early healing. ??The mortise is well maintaine d. ??Her syndesmosis screw appears intact. ??The fracture itself of the distal third of the fibula is going on to satisfactory heali ng. ?? NAE/ljs Procedure Note Eric Ellis MD - 10/12/2015Formattin g of this note might be different from the original. Three views of the patient's right ankle including AP, lateral, and mortise view. The x-rays demonstrate collin y satisfactory early healing. The mortise is well maintained. Her syndesmosis screw appears intact. The fracture itself of t he distal third of the fibula is going on to satisfactory heali ng. NAE/ljs Eric Ellis MD RAD GD documented in this encounter Visit Diagnoses Diagnosis Unspecified closed fracture of ankle - P rimary documented in this encounter
--- OUTSIDE RECORDS SUMMARY | 2022-02-04 13:00 | XMS_ITS | Encounter Summary ---
:1945 Author Organization [facility] Address [address] [place] [address] Care Team Providers Name Role Phone Abida Martell MD Primary Care Provider Encounter Details Date Type Department Care Team Description 08/15/2015 Orders Only [facility]I Alonso Funk, DPM [address] [place] [address] [place] [address] [phone] (Wo rk) Social History Tobacco Use Types Packs/Day Years Used Date Smoking Tobacco: Never Assessed Sex Assigned at Date Recorded Not on file documented as of this encounter Plan of Treatment Not on filedocumented as of this encounter Visit Diagnoses Not on filedocumented in this encounter Care Teams Dry House Worker Relationship Specialty Start Date End Date Abida Martell MD PCP - General [address] [place] [address] documented as of this encounter
--- OUTSIDE RECORDS SUMMARY | 2022-02-04 13:00 | XMS_ITS | Encounter Summary ---
:1945 Author Organization [facility] Address [address] [place] [address] Care Team Providers Name Role Phone Abida Martell MD Primary Care Provider Encounter Details Date Type Department Care Team Description 01/23/2013 Hospital Encounter [facility] Amb[facility] , Pablo [facility]out[facility] [address] [place] [address] [place] [address] [phone] (Wo rk) Social History Tobacco Use Types Packs/Day Years Used Date Smoking Tobacco: Never Assessed Sex Assigned at Date Recorded Not on file documented as of this encounter Last Filed Vital Signs Vital Sign Reading Time Taken Comments Blood Pressure - - Pulse - - Temperature - - Respiratory Rate - - Oxygen Saturation - - Inhaled Oxygen Concentration - - Weight 78 kg (172 lb) 01/20/2013 12:49 PM CDT Height 160 cm (5' 3) 01/20/2013 12:49 PM CDT Body Mass Index 30.47 01/20/2013 12:49 PM CDT documented in this encounter Medications at Time of Discharge Medication Sig Dispensed Refills Start Date End Date ATENolol (AKA TENORMIN) 25 Take by mouth daily 0 01/15/2012 MG tablet (every 24 hours). hydrochlorothiazide 12.5 Indications: PN: 0 08/11 MG capsule adalimumab (AKA HUMIRA) 40 Inject 40 mg 0 013 08/14/2015 MG/0.8ML injection subcutaneously every other week. Calcium Carbonate-Vitamin Take by mouth. 0 09/21/ 2012 09/09/2021 D (CALCIUM 600+D OR) Cholecalciferol 2000 UNITS Take by mouth. 0 03/1809/09/2021 escitalopram oxalate (AKA Take 20 mg by mouth 0 0 01/15/2012 08/14/2015 LEXAPRO) 20 MG tablet daily (every 24 hours). HYDROcodone-acetaminophen Take 1-2 tablets by 30 tablet 0 0 01/23/2013 08/14/2015 (AKA NORCO) 5-325 MG mouth every 6 hours tablet as needed for Pain. HYDROcodone-acetaminophen Take 1-2 tablets by 30 tablet 0 1 05/10/2011 08/15/2015 (AKA NORCO) 5-325 MG mouth every 6 hours tablet as needed for Pain. Risedronate Sodium 150 MG Indications: PN: 0 07/201208/14/2015 documented as of this encounter Procedure Notes Pablo Anderson MD - 01/23/2013 1:40 PM CDT Op Note signed by Pablo Anderson MD at 01/23/13 058 Author: Pablo Anderson MD Service: (none) Author Type: Physician Filed: 01/23/13 1349 Note Time: 01/23/131348 Status: Signed Machinist Tool And Die: Pablo Anderson MD (Physician) [facility] Orth[facility] Patient Name: Kathy Barajas Gender: Olegario Procedure Date: 01/23/2013 13:40 Date of : 1945 Age: 68 Attending MD: Pablo Anderson MD Surgical Staff: Pablo Anderson MD (Surgeon), Boyd Vela MD Referring MD: Procedure: Ulnar Nerve Decompression Right Cubital Tunnel with Simple Decompression Open Median Nerve Decompression Right Carpal Tunnel Right Hand: Thumb Trigger Release Requesting Physician: Patient Profile: This is a 68 year old female. Refer to note in patient chart for documentation of history and physical. Prior to initiation of the procedure, a time-out was performed: patient identification and proposed procedure were verified by the surgeon in the pre-op area. The operative site was verified by the patient and marked by the surgeon. The patient has failed appropriate non-operative treatment. As a result, surgery is recommended. The alternatives, risks and benefits of surgery were discussed with the patient. The patient verbalized understanding of the risks as well as the alternatives to surgery. The patient wished to proceed with operative intervention. A signed and witnessed informed consent was then placed on the chart. Pre-OP Diagnosis: --- Right Elbow --- Compressive neuropathy of ulnar nerve --- Right Hand --- Carpal tunnel syndrome, Trigger thumb Post-OP Diagnosis: --- Right Elbow --- Compressive neuropathy of ulnar nerve --- Right Hand --- Carpal tunnel syndrome, Trigger thumb Anesthesia: Regional by anesthesia staff - Right supraclavicular block - Local Anesthetic (see Anesthesia Notes). Findings: --- Right Elbow --- Soft Tissue: - The ulnar nerve was compressed. --- Right Hand: Carpal Tunnel Release Open --- There was erythema of the median nerve. 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 - A tourniquet was placed on the forearm and isolated from the remainder of the extremities by adhesive tape. --- Right Elbow --- Preparation and Drape: - The limb was prepared and draped in the usual sterile manner using DuraPrep. --- Right Elbow: Ulnar Nerve Decompression --- A longitudinal 6-cm incision was made over the medial aspect of the elbow centered between the medial epicondyle and olecranon. Instruments and Methods: - The subcutaneous tissues were dissected. The ulnar nerve was identified and protected. Proximally, the arcade of Slemp were released. The ulnar nerve was traced distally and the posterior margin of the medial epicondyle was identified and the flexor carpi ulnaris fascia was exposed. The aponeurosis was incised and the cubital tunnel retinaculum was released. Distally, the fascia was incised, extending into the deep fascia of the flexor carpi ulnaris. - The quality of the procedure was good. Wound Closure: - The incision was closed. The subcutaneous layer was closed with 3-0 Vicryl using interrupted technique. The skin was closed with 4-0 Monocryl using running subcuticular technique and Steri-Strip closures. Drains / Dressing: - Dressing per protocol. Tourniquet Time: - Cuff pressure at 250 mmHg. --- Right Hand: Carpal Tunnel Release Open --- Incision Type: - A 2.5 cm longitudinal incision was made from the proximal palm extending along the line of the ring finger. Instruments and Methods: - Dissection through the skin and subcutaneous tissues was achieved. The palmar fascia was visualized and split along its entire length. Bleeding was controlled with electrocautery. The transverse carpal ligament was identified and exposed. The transverse carpal ligament was sharply divided under direct vision. Visualization demonstrated complete division of the transverse carpal ligament. The median nerve was visualized and inspection showed nerve erythema. Throughout the procedure, care was taken to identify and protect the median nerve. The tourniquet was released and good perfusion distally was observed. Bleeding was controlled using bipolar coagulation. Hemostasis was achieved. Wound Closure: - The wound was thoroughly irrigated with sterile saline. The skin was closed with 4-0 Ethilon using interrupted technique. --- Right Hand: Thumb Trigger Release --- Incision Type: - Landmarks for the incision were marked with a sterile marking pen. A 1.5 cm transverse incision was made over the A1 cait area of the thumb. Instruments and Methods: - The incision was dissected down through the subcutaneous tissues to the palmar fascia. The palmar fascia was released and the A1 cait area was exposed. The neurovascular structures were identified and carefully retracted for protection. - The A1 cait was incised with a blade and then completely released with scissors. - - Exploration of the area showed no further impingement. Bleeding was controlled using direct pressure. Wound Closure: - The wound was thoroughly irrigated with sterile saline. The skin was closed with 4-0 Ethilon using interrupted subcuticular technique. Drains / Dressing: - A sterile dressing was applied including gauze and soft bulky dressing. Tourniquet Time: - Cuff pressure at 250 mmHg. Sponge / Instrument / Needle Counts: - Final counts were correct. Intraoperative Inputs and Outputs: - No transfusions; minimal blood loss. Patient to Recovery Room: - The patient tolerated the procedure well and was brought to the recovery room in stable condition. Complications: No Immediate Complications. MD Pablo Flanagan MD Signed Date: 01/23/2013 13:49 Number of Addenda: 0 This report has been signed electronically. Note initiated on 01/23/2013 13:41 Procedure Date: 01/23/2013 13:40 documented in this encounter Miscellaneous Notes Medication History - Clyde Suárez MD - 01/23/2013 3:01 PM CDT INPATIENT MEDS Encounter Date: 01/18/13 midazolam (VERSED) 1 mg/mL injection 1-2 mg Start Date:01/23/13, End Date:01/23/13, Frequency:EVERY 5 MIN PRN *No Administrations Recorded fentaNYL (SUBLIMAZE) injection 25-50 mcg Start Date:01/23/13, End Date:01/23/13, Frequency:EVERY 5 MIN PRN *No Administrations Recorded HYDROcodone-acetaminophen (NORCO) 5-325 mg per tablet Start Date:01/23/13, End Date:08/14/15, Frequency:EVERY 6 HOURS PRN *No Administrations Recorded ePHEDrine injection 5-10 mg Start Date:01/23/13, End Date:01/23/13, Frequency:EVERY 5 MIN PRN *No Administrations Recorded ondansetron (ZOFRAN) injection 4 mg Start Date:01/23/13, End Date:01/23/13, Frequency:EVERY 4 HOURS PRN *No Administrations Recorded fentaNYL (SUBLIMAZE) injection 25-50 mcg Start Date:01/23/13, End Date:01/23/13, Frequency:EVERY 5 MIN PRN *No Administrations Recorded HYDROmorphone (DILAUDID) injection 0.2-0.4 mg Start Date:01/23/13, End Date:01/23/13, Frequency:EVERY 10 MIN PRN *No Administrations Recorded meperidine (DEMEROL) injection 12.5 mg Start Date:01/23/13, End Date:01/23/13, Frequency:EVERY 5 MIN PRN *No Administrations Recorded naloxone (NARCAN) injection 0.08 mg Start Date:01/23/13, End Date:01/23/13, Frequency:PRN *No Administrations Recorded adalimumab (HUMIRA) 40 mg/0.8 mL prefilled syringe Start Date:-, End Date:08/14/15, Frequency:EVERY OTHER WEEK *No Administrations Recorded documented in this encounter Plan of Treatment Not on filedocumented as of this encounter Visit Diagnoses Not on filedocumented in this encounter Care Teams Solar Installation Foreman Relationship Specialty Start Date End Date Abida Martell MD PCP - General 11/[address] [place] [address] documented as of this encounter
--- NOTE | 2022-02-04 14:00 | CRLHL7_ITS ---
For Patients: As a result of the Century Cures Act, medical imaging exams and procedure reports are released immediately into your electronic medical record. You may view this report before your referring provider. If you have questions, please contact your health care provider. BILATERAL SCREENING MAMMOGRAM WITH COMPUTER-AIDED DETECTION AND TOMOSYNTHESIS TECHNIQUE: CC and MLO views were obtained. These mammographic images have been obtained using full-field digital technique. These mammographic images were interpreted with the benefit of computer-aided detection. Breast Tomosynthesis was used in this interpretation. COMPARISON FILM: 01/24/21, 01/10/20, 12/12/18. FINDINGS: There are scattered areas of fibroglandular density IMPRESSION: There is no radiographic evidence for malignancy. ASSESSMENT: BI-RADS Category 1: Negative RECOMMENDATION: Routine screening mammogram in 1 year. A lay language report of this examination will be provided to the patient. Oh Angulo M.D. Diagnostic Radiologist [email or web address] NAVEEN/Dictated by: Oh Angulo MD @ 02/05/2022 9:23:00 AM (Electronically Signed)
== END 2022-02-04 12:57 | disposition home or self-care (01) ==
PROVIDERS: PCP Internal Medicine; Visit Provider Orthopaedic Surgery Orthopaedic Surgery of the Spine
DX: Z12.31 Encounter for screening mammogram for malignant neoplasm of breast (principal); M54.50 Low back pain, unspecified; M51.36 Other intervertebral disc degeneration, lumbar region; M47.896 Other spondylosis, lumbar region
CPT/HCPCS: 72148; 77063; 77067

== ENCOUNTER 2022-02-09 09:30 | Outpatient (CLI) | payer MEDICARE, OTHER, SELFPAY ==
--- OUTSIDE RECORDS SUMMARY | 2022-02-09 08:45 | XMS_ITS | Encounter Summary ---
:1945 Author Organization [facility] Address [address] [place] [address] Care Team Providers Name Role Phone Abida Martell MD Primary Care Provider Reason for Visit Procedure/Equipment (Routine) - Incomplete Specialty Diagnoses / Procedures Referred By Contact Refer red To Contact Diagnoses Chronic pain of both shoulders Saeed Ellis MD Procedures XR Shoulder Rt 2+ Views 8100 [place], [place] [address] Referral ID Status Reason Start Date Expiration Date Visits V isits Requested Authorized [id number] Incomplete 09/09/2021 12/09/2022 1 1 Encounter Details Date Type Department Care Team Description 09/09/2021 [facility]illary [facility] Saeed Ellis MD Chronic pain of Procedure [address] [place] [address] [phone] Social History Tobacco Use Types Packs/Day Years [...] region documented in this encounter Care Teams Site Safety Manager Relationship Specialty Start Date End Date Abida Martell MD PCP - General 11/28/[address] [place] [address] documented as of this encounter
--- OUTSIDE RECORDS SUMMARY | 2022-02-09 08:45 | XMS_ITS | Encounter Summary ---
:1945 Author Organization [facility] Address [address] [place] [address] Care Team Providers Name Role Phone Abida Martell MD Primary Care Provider Reason for Visit Procedure/Equipment (Routine) - Incomplete Specialty Diagnoses / Procedures Referred By Contact Refer red To Contact Diagnoses Glenohumeral arthritis Saeed Ellis MD Procedures [place] Injection Shoulder Rt [address] [facility] [address] [place] [address] Referral ID Status Reason Start Date Expiration Date Visits V isits Requested Authorized [id number] Incomplete 09/09/2021 12/09/2022 1 1 Encounter Details Date Type Department Care Team Description 09/25/2021 [facility]illary [facility] Saeed Ellis, Glenohumeral Procedure [address] [facility] [address] [place] [address] [phone] Social History Tobacco Use Types Packs/Day Years [...] 0/10 immediately following the injection. Saeed HERNANDEZ [place] documented in this encounter Visit Diagnoses Diagnosis Glenohumeral arthritis Other specified disorders of shoulder balbir int documented in this encounter Administered Medications [...] dose documented in this encounter Care Teams Cargo And Ramp Services Manager Relationship Specialty Start Date End Date Abida Martell MD PCP - General 11/[address] [place] [address] documented as of this encounter
--- OUTSIDE RECORDS SUMMARY | 2022-02-09 08:45 | XMS_ITS | Encounter Summary ---
:1945 Author Organization [facility] Address [address] [place] [address] Care Team Providers Name Role Phone Abida Martell MD Primary Care Provider Reason for Visit Procedure/Equipment (Routine) - Incomplete Specialty Diagnoses / Procedures Referred By Contact Refer red To Contact Diagnoses Chronic pain of right ankle Saeed Ellis MD Procedures XR Ankle Rt 3 Views 8100 [facility] [place] [address] Referral ID Status Reason Start Date Expiration Date Visits V isits Requested Authorized [id number] Incomplete 09/09/2021 12/09/2022 1 1 Encounter Details Date Type Department Care Team Description 09/09/2021 [facility]illary [facility] Saeed Ellis MD Chronic pain of Procedure 8[address] [facility] [address] [facility] [address] [place] [address] [phone] Social History Tobacco Use Types Packs/Day Years [...] ankle documented in this encounter Care Teams Toys Inspector Relationship Specialty Start Date End Date Abida Martell MD PCP - General 11/[address] [place] [address] documented as of this encounter
--- OUTSIDE RECORDS SUMMARY | 2022-02-09 08:45 | XMS_ITS | Clinical Summary ---
:1945 Author Organization [facility] Address [address] [place] [address] Care Team Providers Name Role Phone Abida [...] for each transition of care or referral. BeDo Allergies Active Allergy Reactions Severity Noted Date [...] Addre ss Type Group MEDICARE MEDICARE MANAGED [id number] 2008-Present [phone] Medicare CARE MEDICA MEDICA MEDICA PRIME [id number] 2018-Present [phone] Medicare SOLUTION Kathy Barajas Personal/Family Self [address] [facility] [place] [address] Care Teams Audio Video Mechanic Relationship Specialty Start Date End Date Abida Martell MD PCP - General 11/28/[address] [facility] [address]
--- OUTSIDE RECORDS SUMMARY | 2022-02-09 08:46 | XMS_ITS | Encounter Summary ---
:1945 Author Organization [facility] Address [address] [place] [address] Care Team Providers Name Role Phone Abida Martell MD Primary Care Provider Reason for Referral (Routine) - Closed Specialty Diagnoses / Procedures Referred By Contact Refer red To Contact Diagnoses AC joint arthropathy Saeed Ellis MD Procedures Triamcinolone Acet Inj Nos: (per 10 mg) 8[address] [place], [place] [address] Referral ID Status Reason Start Date Expiration Date Visits Requ ested Visits Authorized [id number] Closed 11/13/2019 02/11/2021 1 1 Reason for Visit Reason Comments Shoulder Problem right Encounter Details Date Type Department Care Team Description 11/13/2019 Office Visit [facility] Saeed Ellis MD AC joint arthropathy CENTER [address] [place] [address] (Primary Dx) 8[address] [place], [place] [phone] (Wo rk) Social History Tobacco Use Types [...] injection or develop a fever, please call [phone] You've just had a steroid (cortisone) injection: [...] - 11/13/2019 1:20 PM CDT Kathy Barajas [id number] 1945 Orthopaedic Surgery Follow-Up 11/13/2019 History of [...] has pain with reaching behind her. Positive [place]iver[place]'s. Rotator cuff strength appears intact. Assessment: Diagnosis and Associated Orders ICD-10-CM 1. 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 Right Shoulder Injection After sterile preparation, the patient's right shoulder AC joint was injected with 0.5 mL of Wpqmgrm31pm/mL and 0.5mL of 1% lidocaine. The patient tolerated the procedure without difficulty. She will let us know if she has any further difficulty. Ultimately she may be a candidate for an arthroscopic distal clavicle excision. Scribe Disclosure: Scribed for Saeed Ellis MD by Monica Barajas senior medical technologist. I, Saeed Ellis MD, have personally reviewed and agree with the information entered by the scribe. Saeed Ellis MD documented in this encounter Plan of Treatment Not on filedocumented as of this encounter Visit Diagnoses Diagnosis AC joint arthropathy - Primary Unspecified disorder of shoulder joint documented in this encounter Care Teams Quality Assurance Clerk Relationship Specialty Start Date End Date Abida Martell MD PCP - General 11/28/[address] [place] [address] documented as of this encounter
--- OUTSIDE RECORDS SUMMARY | 2022-02-09 08:46 | XMS_ITS | Encounter Summary ---
:1945 Author [facility] Address [address] [facility] [place] [address] Care Team Providers Name Role Phone Abida Martell MD Primary Care Provider Reason for Referral (Routine) - New Request Specialty Diagnoses / Procedures Referred By Contact Refer red To Contact Diagnoses Chronic pain of right ankle Saeed Ellis MD Procedures Triamcinolone Acet Inj Nos: (per 10 mg) [address] [facility] [address] [place] [address] Referral ID Status Reason Start Date Expiration Date Visits V isits Requested Authorized [id number] New Request 09/10/2021 12/10/2022 1 1 Procedure/Equipment (Routine) - Incomplete Specialty Diagnoses / Procedures Referred By Contact Refer red To Contact Diagnoses Glenohumeral arthritis Saeed Ellis MD Procedures [place] Injection Shoulder Rt [address] [place], [place] [address] Referral ID Status Reason Start Date Expiration Date Visits V isits Requested Authorized [id number] Incomplete 09/09/2021 12/09/2022 1 1 Procedure/Equipment (Routine) - Incomplete Specialty Diagnoses / Procedures Referred By Contact Refer red To Contact Diagnoses Chronic pain of right ankle Saeed Ellis MD Procedures XR Ankle Rt 3 Views [address] [place] [address] Referral ID Status Reason Start Date Expiration Date Visits V isits Requested Authorized [id number] Incomplete 09/09/2021 12/09/2022 1 1 Procedure/Equipment (Routine) - Incomplete Specialty Diagnoses / Procedures Referred By Contact Refer red To Contact Diagnoses Chronic pain of both shoulders Saeed Ellis MD Procedures XR Shoulder Rt 2+ Views [address] [place] [address] [place] [address] Referral ID Status Reason Start Date Expiration Date Visits V isits Requested Authorized [id number] Incomplete 09/09/2021 12/09/2022 1 1 Procedure/Equipment (Routine) - Incomplete Specialty Diagnoses / Procedures Referred By Contact Refer red To Contact Diagnoses Chronic pain of both shoulders Saeed Ellis MD Procedures XR Shoulder Lt 2+ Views [address] [place] [address] [place] [address] Referral ID Status Reason Start Date Expiration Date Visits V isits Requested Authorized [id number] Incomplete 09/09/2021 12/09/2022 1 1 Reason for Visit Reason Comments Shoulder Problem Bilateral Encounter Details Date Type Department Care Team Description 09/09/2021 Office Visit [facility] Saeed Ellis MD Shoulder arthritis (Primary Dx); CENTER [address] [place] [address] Post-traumatic osteoarthritis of right a nkle; [address] [place], [place] Chronic pain of both shoulde rs; [place] [address] Chronic pain of right ankle; [address] Glenohumeral arthritis Social History Tobacco Use Types [...] injection or develop a fever, please call [phone] You've just had a steroid (cortisone) injection: [...] - 09/09/2021 10:10 AM CDT Kathy Barajas [id number] 1945 Orthopaedic Surgery Follow-Up 09/09/2021 History of [...] int documented in this encounter Care Teams Gmat Tutor Relationship Specialty Start Date End Date Abida Martell MD PCP - General 11/28/[address] [place] [address] documented as of this encounter
--- OUTSIDE RECORDS SUMMARY | 2022-02-09 08:46 | XMS_ITS | Encounter Summary ---
:1945 Author Organization [facility] Address [address] [address] Care Team Providers Name Role Phone Abida Martell MD Primary Care Provider Encounter Details Date Type Department Care Team Description 08/16/2019 Hospital Encounter [facility] [address] [place] [address] Social History Tobacco Use Types Packs/Day Years [...] on filedocumented in this encounter Care Teams Director Of Public Safety Relationship Specialty Start Date End Date Abida Martell MD PCP - General 8/5/13 [address] [facility] [address] documented as of this encounter
--- OUTSIDE RECORDS SUMMARY | 2022-02-09 08:46 | XMS_ITS | Encounter Summary ---
:1945 Author Organization [facility] Address [address] [facility] [place] [address] Care Team Providers Name Role Phone Abida Martell MD Primary Care Provider Encounter Details Date Type Department Care Team Description 08/15/2015 Hospital Encounter [facility]er Gutierrez, DPM [facility] [address] [place] [address] 8[address] [place] [address] [place], [place] [address] [phone] Social History Tobacco Use Types Packs/Day Years [...] Filed: 08/19/151957 Note Time: 08/15/151527 Status: Signed Bench Mechanic: Alonso Gutierrez DPM (Physician) NAME: KATHY MCKEON MR#: [id number] CSN: [id number] AUTHENTICATING CLINICIAN: Alonso Gutierrez DPM CONFIRM #: [id number] LOC: 725 OPERATIVE REPORT DATE OF OPERATION: 08/15/2015 : 1945 SURGEON: Alonso Gutierrez DPM DESIGN LEADER: EDILSON Haynes was present to assist due [...] Anesthesia. After successful IV sedation and appropriate iddbw-vug-chu-cause for surgical site identification, attention was directed to the right foot at which time 16 mL of 0.25% Sensorcaine plain was utilized to perform a Humphrey block to the 1st ray. Right foot was then prepped and draped in the usual aseptic manner. After appropriate birmn-zpu-fot-cause for surgical site identification once again and [...] Suárez MD - 08/15/2015 8:04 AM CDT [facility] 8[address] [place] [address] Surgical Summary 08/15/2015 Kathy Mckeon MRN: : [id number] Admission Information Department Dept Phone Hosp. Acct. # 08/15/2015 5:57 AM [facility] [phone] Admitting Provider Information Provider Pager Service Admission [...] are the prescriptions that you need to forklift picker. You received printed prescriptions for the following medications or they are available over the counter. You may pick them up at any pharmacy: - HYDROcodone-acetaminophen 5-325 mg per tablet Managing your medication list is very important. Update your medication information when your medications are discontinued, doses are changed, or new medications (including yeyh-col-yzhhppj products) are added. You are also encouraged to carry medication information at all times in the event of emerge ncy situations. Nurse initals that this was reviewed with the patient. Caring for yourself after your hospital stay Future Appointments 08/23/2015 2:30 PM Postop with Buster Snyder LPN [facility] ([facility] [place]) [address] [place] [address] [place] [address] 09/05/2015 9:30 AM Postop with [facility] Heidi Abby Nurse [facility] ([facility] [place]) [address] [place] [address] [place] [address] 09/26/2015 2:45 PM Postop with Alonso Gutierrez DPM [facility] ([facility] [place]) [address] [place] [address] [place] [address] Appointments for Next 60 Days 08/23/2015 2:30 PM POST-OP 30 min [facility] [[id number]] Please arrive 15 minutes prior to your [...] the East: Take [address] to the [address] [facility] exit. Turn left on [address] [facility] and proceed to [address]. Turn left at the stoplight on [address]. Turn left on [address] and follow it to the [facility] parking ramp. From the West: Take [address] to the [address] [facility] exit. Turn right on [address] and proceed to [address] Turn left at the stoplight on [address] Turn left on [address] and follow it to the [facility] parking ramp. 09/05/2015 9:30 AM POST-OP 60 min [facility] [[id number]] Please arrive 15 minutes prior to your [...] the East: Take [address] to the [facility] [address] [facility] exit. Turn left on [address] and proceed to [address] Turn left at the stoplight on [address] Turn left on [address] and follow it to the [facility] parking ramp. From the West: Take [address] to the [address] [facility] exit. Turn right on [address] and proceed to [address] Turn left at the stoplight on [address] Turn left on [address] and follow it to the [facility] parking ramp. 09/26/2015 2:45 PM POST-OP 15 min [facility] [[id number]] Please arrive 15 minutes prior to your [...] on [address] and proceed to [address] Turn left at the stoplight on [address] Turn left on [address] and follow it to the [facility] parking ramp. From the West: Take [address] to the [address] exit. Turn right on [address] and proceed to [address] Turn left at the stoplight on [address] Turn left on [address] and follow it to the [facility] ramp. Patient Instructions None ` Nurse Signature: Date: ` Patient Signature: Date: documented in this encounter Plan of Treatment Not on filedocumented as of this encounter Visit Diagnoses Not on filedocumented in this encounter Care Teams Php Software Engineer Relationship Specialty Start Date End Date Abida Martell MD PCP - General 11/[address] [place] [address] documented as of this encounter
--- OUTSIDE RECORDS SUMMARY | 2022-02-09 08:46 | XMS_ITS | Encounter Summary ---
:1945 Author Organization [facility] Address [address] [place] [address] Care Team Providers Name Role Phone Abida Martell MD Primary Care Provider Reason for Visit Reason Comments Post Op Exam Encounter Details Date Type Department Care Team Description 11/05/2015 Office Visit [facility] Alonso Gutierrez, [facility] are following CENTER DPM surgery of the [address] [place] [address] musculoskeletal system [place], [place] (Primary Dx) [id number] Social History Tobacco Use Types Packs/Day Years Used Date Smoking Tobacco: Never Assessed Sex Assigned at Date Recorded Not on file documented as of this encounter Patient Instructions Patient InstructionsBuster Snyder LPN - 11/05/2015 11:[address] Alonso Gutierrez, DPM Podiatric Medicine & Permaculture DesignerMiniature Set Constructor, [facility] Care Companion: Ade Murillo Please call Ade for all administrative questions at [phone] Nurse: Irena Paz, RN Please contact Irena for all medical questions at [phone] Medication Requests: Prescriptions are not filled on Weekends or on Weekdays after 3:00PM For all medication refills: Request a refill using MyChart or contact your Pharmacy Follow up PRN documented in this encounter Progress Notes Alonso Gutierrez DPM - 11/05/2015 12:23 PM CDT Progress Notes signed by Alonso Gutierrez DPM at 11/13/151249 Author: Alonso Gutierrez DPM Service: (none) Author Type: Physician Filed: 11/13/15 0064 Note Time: 11/07/15922 Status: Signed Sneller Hand: Alonso Gutierrez DPM (Physician) NAME: KATHY MCKEON MR#: [id number] CSN: [id number] AUTHENTICATING CLINICIAN: Alonso Gutierrez DPM CONFIRM #: [id number] LOC: 711 CLINIC PROGRESS NOTE DATE OF VISIT: 11/05/2015 : 1945 CHIEF COMPLAINT: Status post ORIF of comminuted intraarticular fracture head of proximal phalanx right hallux. Date of surgery 08/15/2015. HPI: This is a return clinic visit for this patient now 12 weeks status post above- stated procedure. Patient states she is doing well. She has been increasing her ambulatory activities since our last visit on 09/25/2015. She has noticed some stiffness to the joint and points to the IPJ of the right hallux,however not having significant pain. She also still some mild swelling. PHYSICAL EXAM: Exam reveals mild edema right hallux. No erythema. There is limitation of motion of the IPJ of the right hallux, however no crepitation and no pain. IMAGING: X-rays ordered, independently reviewed. Three views coned right hallux radiographs. Patient is approximately 12 weeks status post ORIF of comminuted intraarticular head of proximal phalangeal fracture. Noted is anatomic alignment to the IPJ as well as the head of the proximal phalanx.There is good bony incorporation at the fracture site. They are indistinct. Mild sclerosis of the distal phalanx. Radiographic Impression: 12 weeks status post ORIF comminuted displaced intraarticular fracture headof proximal phalanx with excellent bony incorporation and anatomic alignment. ASSESSMENT: Patient is 12 weeks status post ORIF right hallux with excellent bony incorporation in anatomic alignment. PLAN: Discussed physical and radiographic findings with the patient. She has healed nicely. She is not having pain. She may continue to increase her ambulatory activities. More than likely she will have long-term diminished motion to the IPJ of the right hallux, however should not affect function in any way. If becomes symptomatic may at some point require arthrodesis. I will see the patient parsenio JOHNSON:ROGELIO C: R:11/05/15 13:42 CONFIRM#:[id number] documented in this encounter Plan of Treatment Not on filedocumented as of this encounter Visit Diagnoses Diagnosis Aftercare following surgery of [facility] - Primary Aftercare following surgery of [facility], [facility] documented in this encounter Care Teams Stopper Maker Relationship Specialty Start Date End Date Abida Martell MD PCP - General 11/[address] [place] [address] documented as of this encounter
--- OUTSIDE RECORDS SUMMARY | 2022-02-09 08:46 | XMS_ITS | Encounter Summary ---
:1945 Author Organization [facility] Address [address] [place] [address] Care Team Providers Name Role Phone Abida Martell MD Primary Care Provider Reason for Visit Procedure/Equipment (Routine) - Incomplete Specialty Diagnoses / Procedures Referred By Contact Refer red To Contact Diagnoses Right shoulder pain, unspecified chronicity Saeed Ellis MD Procedures XR Shoulder Rt 2+ Views [address] [place], [place] [address] Referral ID Status Reason Start Date Expiration Date Visits V isits Requested Authorized [id number] Incomplete 01/24/2019 04/24/2020 1 1 Encounter Details Date Type Department Care Team Description 01/24/2019 Ancillary [facility] Saeed Ellis MD Right shoulder Procedure [address] D r pain, unspecified Drive [place], [place] [address] [phone] Social History Tobacco Use Types Packs/Day Years [...] ity documented in this encounter Care Teams Clinical Data Abstractor Relationship Specialty Start Date End Date Abida Martell MD PCP - General 11/[address] [place] [address] documented as of this encounter
--- OUTSIDE RECORDS SUMMARY | 2022-02-09 08:46 | XMS_ITS | Encounter Summary ---
:1945 Author Organization [facility] Address [address] [place] [address] Care Team Providers Name Role Phone Abida Martell MD Primary Care Provider Encounter Details Date Type Department Care Team Description 08/15/2015 Orders Only [facility] SUZI Alonso Funk, DPM [address] [place] [address] [place] [address] [phone] (Wo rk) Social History Tobacco Use Types Packs/Day Years Used Date Smoking Tobacco: Never Assessed Sex Assigned at Date Recorded Not on file documented as of this encounter Plan of Treatment Not on filedocumented as of this encounter Visit Diagnoses Not on filedocumented in this encounter Care Teams Computer Numerical Control Programmer Relationship Specialty Start Date End Date Abida Martell MD PCP - General 11/[address] [place] [address] documented as of this encounter
--- OUTSIDE RECORDS SUMMARY | 2022-02-09 08:46 | XMS_ITS | Encounter Summary ---
:1945 Author Organization [facility] Address [address] [address] Care Team Providers Name Role Phone Abida Martell MD Primary Care Provider Encounter Details Date Type Department Care Team Description 08/21/2015 Notes/Orders [facility] Alonso Gutierrez, Aftercare following Prosthetics DPM surgery of the [address] [place] [address] musculoskeletal system [place], [place] (Primary Dx) [place] [address] [phone] Social History Tobacco Use Types Packs/Day Years Used Date Smoking Tobacco: Never Assessed Sex Assigned at Date Recorded Not on file documented as of this encounter Plan of Treatment Not on filedocumented as of this encounter Visit Diagnoses Diagnosis Aftercare following surgery of the [facility] [place] [place] - Primary Aftercare following surgery of the [facility] [place] [place], NEC documented in this encounter Care Teams Button Spindler Relationship Specialty Start Date End Date Abida Martell MD PCP - General 11/[address] [place] [address] documented as of this encounter
--- OUTSIDE RECORDS SUMMARY | 2022-02-09 08:46 | XMS_ITS | Encounter Summary ---
:1945 Author Organization [facility] Address [address] [place] [address] Care Team Providers Name Role Phone Abida Martell MD Primary Care Provider Reason for Visit Reason Comments Post Op Exam Encounter Details Date Type Department Care Team Description 02/02/2013 Office Visit TRIGracia Jha [facility] CENTER [place] examination, [address] [place] [address] DR following unspecified [place], [place] [address] [place], [place] surgery (Primary Dx) [phone] (Wo rk) Social History Tobacco Use Types Packs/Day Years Used Date Smoking Tobacco: Never Assessed Sex Assigned at Date Recorded Not on file documented as of this encounter Patient Instructions Patient InstructionsAnaya Baird - 02/02/2013 2:12 PM CDT Gracia Lea PA-C Upper Extremity Physician Merchandising Execution Manager Sales Vendor: Noa Gomez Please contact Noa for all administrative questions at [phone] Please contact Nurse Triage for all medical related questions at [phone] Please contact your Pharmacy for all medication [...] Primary documented in this encounter Care Teams Rn Allergy Relationship Specialty Start Date End Date Abida Martell MD PCP - General 11/[address] [place] [address] documented as of this encounter
--- OUTSIDE RECORDS SUMMARY | 2022-02-09 08:46 | XMS_ITS | Encounter Summary ---
:1945 Author Organization [facility] Address [address] [place] [address] Care Team Providers Name Role Phone Abida Martell MD Primary Care Provider Encounter Details Date Type Department Care Team Description 09/12/2015 Imaging [facility] Rad[facility] Aftercare following surgery of [address] the musculoskeletal system [place], [place] [address] Social History Tobacco Use Types [...] Diagnoses Diagnosis Aftercare following surgery of the [facility] Aftercare following surgery of the [facility] [place] [place], NEC documented in this encounter Care Teams Child Specialist Relationship Specialty Start Date End Date Abida Martell MD PCP - General 11/28/[address] [place] [address] documented as of this encounter
--- OUTSIDE RECORDS SUMMARY | 2022-02-09 08:46 | XMS_ITS | Encounter Summary ---
:1945 [facility] Organization [facility] Address [address] [address] Care Team Providers Name Role Phone Abida Martell MD Primary Care Provider Reason for Visit Reason Comments Post Op Exam Encounter Details Date Type Department Care Team Description 08/23/2015 Office Visit [facility] Buster Snyder, Postop check (Primary CENTER RN Dx) [address] [place], [place] [address] Social History Tobacco Use Types Packs/Day Years Used Date Smoking Tobacco: Never Assessed Sex Assigned at Date Recorded Not on file documented as of this encounter Patient Instructions Patient InstructionsBuster Snyder LPN - 08/23/2015 2:[address] Alonso Gutierrez, DPM Podiatric Medicine & Claim AgentMetal Polisher, [facility] Loss Control Representative: Ade Murillo Please call Ade for all administrative questions at [phone] Nurse: Irena Paz RN Please contact Irena for all medical questions at [phone] Medication Requests: Prescriptions are not filled on Weekends or on Weekdays after 3:00PM For all medication refills: Request a refill using MyChart or contact your Pharmacy Continue non-weightbearing in the boot or post op shoe Elevate for any swelling, pain, and discomfort Call Nurse Line with any questions or concerns documented in this encounter Progress Notes Buster Snyder LPN - 08/23/2015 5:01 PM CDT Kathy is status post Open reduction with percutaneous 0.062 crossed K-wire fixation, right hallux on08/15/[address] Gutierrez. She presents today accompanied by her for 1 week Post Op check. She ambulates with a knee scooter and is non-weightbearing in a surgical shoe. She has no complain of pain today. The old dressings were removed and the incisions are clean, dry and intact with sutures and K-wires present upon initial evaluation. There is mild redness, no swelling, and no drainage noted. She denies any fever or chills. There are no signs or symptoms of infection. CMS intact. She denies any calf pain. Homans sign negative. The incision and K-wire sites were cleaned and new dressings were applied.She was placed in a short boot for better protection since she stated she had bumped her surgical toe. She will follow up in 1 week. She is scheduled for a [address] Gutierrez. NDER HANDLER documented in this encounter Plan of Treatment Not on filedocumented as of this encounter Visit Diagnoses Diagnosis Postop check - Primary Follow-up examination, following unspeci fied surgery documented in this encounter Care Teams Human Resources Assistant Manager Relationship Specialty Start Date End Date Abida Martell MD PCP - General 11/[address] [place] [address] documented as of this encounter
--- OUTSIDE RECORDS SUMMARY | 2022-02-09 08:46 | XMS_ITS | Encounter Summary ---
:1945 Author Organization [facility] Address [address] [place], [place] [address] [place] [address] Care Team Providers Name Role Phone Abida Martell MD Primary Care Provider Reason for Visit Reason Comments Post Op Exam Encounter Details Date Type Department Care Team Description 09/12/2015 Office Visit [facility] Alonso uGtierrez, [facility] are following CENTER DPM surgery of the [address] [place] [address] musculoskeletal system [place], [place] (Primary Dx) [phone] Social History Tobacco Use Types Packs/Day Years Used Date Smoking Tobacco: Never Assessed Sex Assigned at Date Recorded Not on file documented as of this encounter Patient Instructions Patient InstructionsBuster Snyder LPN - 09/12/2015 4:[address] Alonso Guteirrez, DPM Podiatric Medicine & Event Marketing InternDehydrogenation Converter Helper, [facility] Poly Operator: Ade Murillo Please call Ade for all administrative questions at [phone] Nurse: Irena Paz, RN Please contact Irena for all medical questions at [phone] Medication Requests: Prescriptions are not filled on [...] signed by Alonso Gutierrez DPM at 09/16/15 1655 Author: Alonso Gutierrez DPM Service: (none) Author Type: Physician Filed: 09/16/15 4218 Note Time: 09/16/15 1248 Status: Signed Pencil Inspector: Alonso Gutierrez DPM (Physician) NAME: KATHY MCKEON MR#: [id number] CSN: [id number] AUTHENTICATING CLINICIAN: Alonso Gutierrez DPM CONFIRM #: [...] Diagnoses Diagnosis Aftercare following surgery of the [facility] [place] - Primary Aftercare following surgery of the [facility] [place] system, NEC documented in this encounter Care Teams Buffing Line Set Up Worker Relationship Specialty Start Date End Date Abida Martell MD PCP - General 11/28/[address] [place] [address] documented as of this encounter
--- OUTSIDE RECORDS SUMMARY | 2022-02-09 08:46 | XMS_ITS | Encounter Summary ---
:1945 Author Organization [facility] Address [address] [place] [address] Care Team Providers Name Role Phone Abida Martell MD Primary Care Provider Encounter Details Date Type Department Care Team Description 08/11/2015 Imaging [id number] RADIOLOGY [facility] [address] [place] [address] Social History Tobacco Use Types Packs/Day Years [...] on filedocumented in this encounter Care Teams Salad Maker Relationship Specialty Start Date End Date Abida Martell MD PCP - General 11/28/[address] [place] [address] documented as of this encounter
--- OUTSIDE RECORDS SUMMARY | 2022-02-09 08:46 | XMS_ITS | Encounter Summary ---
:1945 Author Organization [facility] Address [address] [place] [address] Care Team Providers Name Role Phone Abida Martell MD Primary Care Provider Encounter Details Date Type Department Care Team Description 08/14/2015 Notes/Orders [facility] SU[facility]I Alonso Funk, DPM [address] [place] [address] [place] [address] [phone] (Wo rk) Social History Tobacco Use Types Packs/Day Years Used Date Smoking Tobacco: Never Assessed Sex Assigned at Date Recorded Not on file documented as of this encounter Plan of Treatment Not on filedocumented as of this encounter Visit Diagnoses Not on filedocumented in this encounter Care Teams Starch Dumper Relationship Specialty Start Date End Date Abida Martell MD PCP - General 11/[address] [place] [address] documented as of this encounter
--- OUTSIDE RECORDS SUMMARY | 2022-02-09 08:46 | XMS_ITS | Encounter Summary ---
:1945 Author Organization [facility] Address [address] [place] [address] Care Team Providers Name Role Phone Abida Martell MD Primary Care Provider Encounter Details Date Type Department Care Team Description 09/25/2015 Imaging [facility] Radiology Aftercare following surgery of [address] the musculoskeletal system [place], [place] [address] Social History Tobacco Use Types [...] Diagnoses Diagnosis Aftercare following surgery of the [facility] [place]keletal system Aftercare [facility] documented in this encounter Care Teams Spindle Repairer Relationship Specialty Start Date End Date Abida Martell MD PCP - General 11/[address] [place] [address] documented as of this encounter
--- OUTSIDE RECORDS SUMMARY | 2022-02-09 08:46 | XMS_ITS | Encounter Summary ---
:1945 [facility] Address [address] [address] Care Team Providers Name Role Phone Abida Martell MD Primary Care Provider Encounter Details Date Type Department Care Team Description 08/14/2015 Notes/Orders [facility] Brenda, Alonso W, Az y, elective CENTER DPM (Primary Dx) [address] [place] [address] [place], [place] [phone] (Wo rk) Social History Tobacco Use Types Packs/Day Years Used Date Smoking Tobacco: Never Assessed Sex Assigned at Date Recorded Not on file documented as of this encounter Plan of Treatment Not on filedocumented as of this encounter Visit Diagnoses Diagnosis Surgery, elective - Primary Unspecified elective surgery for purpose s other than remedying health states documented in this encounter Care Teams Ceramics Technician Relationship Specialty Start Date End Date Abida Martell MD PCP - General 11/[address] [place] [address] documented as of this encounter
--- OUTSIDE RECORDS SUMMARY | 2022-02-09 08:46 | XMS_ITS | Encounter Summary ---
:1945 Author [facility] Address [address] [place] [address] Care Team Providers Name Role Phone Abida Martell MD Primary Care Provider Reason for Visit Reason Comments Foot Pain Encounter Details Date Type Department Care Team Description 08/13/2015 Office Visit [facility] Closed displaced fracture of proximal phalanx of right great toe, initial encounter (Primary Dx); PHAN Corrales MD Toe pain, right [address] [facility] [address] [place] [address] [place], [place] [phone] (Wo rk) Social History Tobacco Use Types [...] 08/20/15904 Note Time: 08/16/15 1243 Status: Signed Oil Field Rig Builder: Capri Pereyra MD (Physician) NAME: KATHY MCKEON MR#: [id number] CSN: [id number] AUTHENTICATING CLINICIAN: Capri Pereyra MD CONFIRM #: [...] the great toe. She was seen at [facility] where x-rays of her great toe [...] mg 2 times a week, atenolol, hydrochlorothiazide, Cornelius. ALLERGIES: CELEBREX, LISINOPRIL, SULFA. SOCIAL HISTORY: She [...] limb documented in this encounter Care Teams Film Color Tester Relationship Specialty Start Date End Date Abida Martell MD PCP - General 11/28/[address] [place] [address] documented as of this encounter
--- OUTSIDE RECORDS SUMMARY | 2022-02-09 08:46 | XMS_ITS | Encounter Summary ---
:1945 Author Organization [facility] Address [address] [place] [address] Care Team Providers Name Role Phone Abida Martell MD Primary Care Provider Reason for Visit Reason Comments Post Op Exam Encounter Details Date Type Department Care Team Description 08/30/2015 Office Visit [facility] SUZI TER Nurse, Tria Closed displaced [address] [facility] Ortho fracture of proximal [place], [place] [address] phalanx of right great [phone] toe, initial en counter (Primary Dx) Social [...] Primary documented in this encounter Care Teams Railroad Car Letterer Relationship Specialty Start Date End Date Abida Martell MD PCP - General 11/28/[address] [place] [address] documented as of this encounter
--- OUTSIDE RECORDS SUMMARY | 2022-02-09 08:46 | XMS_ITS | Encounter Summary ---
:1945 Author Organization [facility] Address [address] [place] [address] Care Team Providers Name Role Phone Abida Martell MD Primary Care Provider Reason for Referral (Routine) - Closed Specialty Diagnoses / Procedures Referred By Contact Refer red To Contact Diagnoses AC joint arthropathy Saeed Ellis MD Procedures Triamcinolone Acet Inj Nos: (per 10 mg) [address] [facility] [place], [place] [address] Referral ID Status Reason Start Date Expiration Date Visits Requ ested Visits Authorized [id number] Closed 01/24/2019 04/24/2020 1 1 Procedure/Equipment (Routine) - Incomplete Specialty Diagnoses / Procedures Referred By Contact Refer red To Contact Diagnoses Right shoulder pain, unspecified chronicity Saeed Ellis MD Procedures XR Shoulder Rt 2+ Views [address] [place] [address] [place], [place] [address] Referral ID Status Reason Start Date Expiration Date Visits V isits Requested Authorized [id number] Incomplete 01/24/2019 04/24/2020 1 1 Reason for Visit Reason Comments Shoulder Problem right Encounter Details Date Type Department Care Team Description 01/24/2019 Office Visit [facility] Saeed Ellis MD AC joint arthropathy (Primary Dx); CENTER [address] Right shoulder pain, unspecified chronic ity [address] [facility] [place] [phone] (Wo rk) Social History Tobacco Use Types [...] CDT Dr. Saeed Ellis MD Orthopaedic Surgeon Gift Basket Packer: Cherry Obrien Please call Cherry for all administrative questions at [phone] Orthopaedic Condenser Tester: JOSELO Carmona LPN Please contact Nancy for all medical questions at [phone] Medication Requests: Prescriptions are not filled on Weekends or on Weekdays after 3:00PM For all medication refills: Request a refill using [email or web address] or contact your Pharmacy The right shoulder was injected with Kenalog-40 and lidocaine. Avoid Strenuous Activity for the remainder of the day and avoid activities that cause pain for one to two weeks following the injection. Signs and Symptoms to watch for: If you have any redness, warmth or increasing pain at the site of the injection or develop a fever, please call [phone]..You've just had a steroid (cortisone) injection: Steroid [...] injections administered. Thank you for enrolling in [facility]. Please follow the instructions below to securely access your online medical record. [facility] allows you to send messages to your doctor, view your test results, renewyour prescriptions, schedule appointments, and more. How Do I Sign Up? 1. In your Internet browser, go to [email or web address] 2. Click on the Enter activation code link under the New User? section. You will see the Activate your account! page. 3. Enter your activation code exactly as it appears below. You will not need to use this code after you???ve completed the sign-up process. If you do not sign up before the expiration date, you must request a new code. Activation Code: [email or web address] Expires: 02/23/2019 1:58 PM 4. Enter your last name and date of (mm/dd/yyyy) as indicated, then click Continue. You will be taken to the Let's set up your account page. 5. Create a username. This will be your [facility] login ID and cannot be changed, so think of one thatis secure and easy to remember. 6. Create a password. You can change your password at any time. 7. Enter your e-mail address. You will receive e-mail notification when new information is availablein [facility]. 8. Select your Security Questions and enter your answers. These can be used at a later time if you forget your password. 9. Check the box to accept the terms and conditions. Click Create your account. You can now view your medical record. Additional Information If you have questions, you can call [phone] to talk to our [facility] staff. Remember, [facility] is NOT to be used for urgent needs. For medical emergencies, dial 911. documented in this encounter Progress Notes Saeed Ellis MD - 01/24/2019 1:00 PM CDT Kathy Barajas [id number] 1945 [facility] Orthopaedic Center Consultation 01/24/2019 Chief Complaint: [...] limitation of neck extension. Good flexion and ahyj-ny-abqt rotation. Non tender in the paracervical musculature [...] and localizes to her AC joint. Negative [place]'s test. No click or clunk in the [...] Saeed Ellis MD by Gadiel Vieyra medical records tech. I, Saeed Ellis MD, have personally reviewed [...] ity documented in this encounter Care Teams Weight Inspector Relationship Specialty Start Date End Date Abida Martell MD PCP - General 11/28/12 [address] [place] [address] (work) documented as of this encounter
--- OUTSIDE RECORDS SUMMARY | 2022-02-09 08:47 | XMS_ITS | Clinical Summary ---
:1945 Author Organization [facility] [place] [address] Care Team Providers Name Role Phone Abida [...] Group MEDICARE PART B MEDICARE PART B [id number] 2012-Present ATTN: CLAIMS - HB USE ONLY HB ONLY [address] [place] [address] MEDICARE PART A MEDICARE PART A [id number] 2008-Present ATTN: CLAIMS - HB USE ONLY HB ONLY [address] [facility] [place] [address] MEDICARE PART B MEDICARE PART B [id number] 2008-Present ATTN: CLAIMS - HB USE ONLY HB ONLY [address] [facility] [place] [address] MEDICA MEDICA PRIME [id number] 2012-Present [address] [address] [place] [address] MEDICA MR MEDICA PRIME [id number] 2017-Present [address] [address] [place] [address] MEDICA MR MR MEDICA PRIME [id number] 2013-Present [address] [address] [place] [address] Kathy Barajas Personal/Family Self 1945 [address] (Home) [place] [address] Care Teams Computer Numerical Control Grinder Relationship Specialty Start Date End Date Abida Martell MD PCP - General Internal Medicine 12/29/121999 [place] [address]
--- OUTSIDE RECORDS SUMMARY | 2022-02-09 08:47 | XMS_ITS | Encounter Summary ---
:1945 Author Organization [facility] Address [address] [place] [address] Care Team Providers Name Role Phone Unavailable Primary Care Provider Unavailable Reason for Visit Reason Comments Post Op Exam Clavicle Injury Encounter Details Date Type Department Care Team Description 01/15/2012 Surgical Consult [facility] Eric Ellis MD Fx ankle; [address] Unspecified part of closed fracture of c lavicle; [address] [place], [place] Unspecified [place] [address] [phone] Social History Tobacco Use Types Packs/Day Years [...] 1434 Note Time: 01/16/12 1028 Status: Signed Programs Manager: Eric Ellis MD (Physician) NAME: KATHY MCKEON VISIT: [id number] DICTATING CLINICIAN: ERIC ELLIS MD JOB: [id number] [facility] JOB: [id number] LOC: 3711 CLINIC PROGRESS NOTE DATE OF VISIT: 01/15/2012 : 1945 CHIEF COMPLAINT: Right ankle fracture and right clavicle fracture. HISTORY: The patient is a 67-year-old female referred to me for initial evaluation for both a right ankle fracture and a right clavicle fracture. Her history is that of having broken her clavicle almost a month ago. Recently she was in [place] and approximately 2-1/2 weeks ago sustained a [...] screw. She now returns back [facility] the [facility] and needs a followup. She is referred [...] for her fibula fracture. The surgeon in [place] wanted her nonweightbearing for a period of 6 weeks. We placed her into a short leg nonweightbearing cast and she was given a Turning Heat Treater Head to use because of her clavicle fracture. [...] to be some early calcification present. ?? NAE/roving carrier Procedure Note Eric Ellis MD - 10/12/2015Formattin g of this note might be different from the original. AP and lordotic of the patient's right c lavicle reveals a comminuted overriding midshaft clavicle fracture. T here appears to be some early calcification present. NAE/roving carrier Eric Ellis MD RAD GD XR Ankle [...] and the screw fixation is adequate. ?? NAE/roving carrier Procedure Note Eric Ellis MD - 10/12/2015Formattin [...] anatomic and the screw fixation is adequate. NAE/roving carrier Eric HESTER documented in this encounter Visit Diagnoses Diagnosis Fx ankle Unspecified closed fracture of ankle Unspecified part of closed fracture of c lavicle Unspecified closed fracture of ankle documented in this encounter
--- OUTSIDE RECORDS SUMMARY | 2022-02-09 08:47 | XMS_ITS | Encounter Summary ---
:1945 Author Organization [facility] Address [address] [place] [address] Care Team Providers Name Role Phone Abida Martell MD Primary Care Provider Encounter Details Date Type Department Care Team Description 03/10/2012 Orders Only [facility] Stekory, Saeed Burnham MD Infected hardware in CENTER [address] [place] [address] right leg (Primary [address] [place], [place] Dx) [place], [place] [address] [phone] (Wo rk) Social History Tobacco Use Types Packs/Day Years Used Date Smoking Tobacco: Never Assessed Sex Assigned at Date Recorded Not on file documented as of this encounter Plan of Treatment Not on filedocumented as of this encounter Procedures Procedure Name Priority Date/Time Associated Comments Diagnosis ECG 12 LEAD Routine 03/10/2012 12:30 PM Infected hardware Res ults for this OUTPATIENT COMPUTER PROGRAMMING PROFESSOR in right leg (HRC) procedure are in the results section. documented in this encounter Results ECG 12 Lead Outpatient (03/10/2012 12:30 PM COMPUTER PROGRAMMING PROFESSOR) P athologist Signature Ventricular Rate 59 BPM [facility] Atrial Rate 59 BPM [facility] P-R Interval 130 ms [facility] QRS Duration 82 ms [facility] QT 420 ms [facility] QTc 415 ms [facility] P [place] 58 degrees [facility] R [place] 81 degrees [facility] T [place] 42 degrees [facility] Specimen (Source) Anatomical Collection Method Collection Time Re ceived Time Location / / Volume Laterality 03/10/2012 12:30 PM COMPUTER PROGRAMMING PROFESSOR Narrative [facility] - 07/31/2019 7:49 PM CDT Sinus bradycardia Otherwise normal ECG No previous ECGs available Confirmed by LATASHA ROPER ([id number]), YVONNE Morris () on 03/10/2012 5:34:46 PM Procedure Note Epic, Internal Processing - 08/04/2019Fo rmatting of this note might be different from the original. 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
--- OUTSIDE RECORDS SUMMARY | 2022-02-09 08:47 | XMS_ITS | Encounter Summary ---
:1945 Author Organization [facility] Address [address] [place] [address] Care Team Providers Name Role Phone Abida Martell MD Primary Care Provider Encounter Details Date Type Department Care Team Description 01/18/2013 Orders Only [facility] SUZI TER , Pablo Stout MD [address] [facility] [address] [place] [address] [place] [address] [phone] (Wo rk) Social History Tobacco Use Types Packs/Day Years Used Date Smoking Tobacco: Never Assessed Sex Assigned at Date Recorded Not on file documented as of this encounter Plan of Treatment Not on filedocumented as of this encounter Visit Diagnoses Not on filedocumented in this encounter Care Teams Regulatory Leader Relationship Specialty Start Date End Date Abida Martell MD PCP - General 11/[address] [place] [address] documented as of this encounter
--- OUTSIDE RECORDS SUMMARY | 2022-02-09 08:47 | XMS_ITS | Encounter Summary ---
:1945 Author Organization [facility] Address [address] [place] [address] Care Team Providers Name Role Phone Abida Martell MD Primary Care Provider Reason for Visit Reason Comments Neck Pain Encounter Details Date Type Department Care Team Description 12/12/2012 Office Visit Torito Sharp [facility] spondylosis CENTER without myelopathy [address] [place] [address] (Primary Dx) [place], [place] [address] [place], [place] [phone] (Wo rk) Social History Tobacco Use Types [...] contact Abby for all administrative questions at [phone] Please contact the Spine Nurse for all medical related questions at [phone] Please contact your Pharmacy for all medication refill requests documented in this encounter Progress Notes Torito Marks MD - 12/12/2012 3:21 PM CDT Progress Notes signed by Torito Marks MD at 12/14/12 1805 Author: Torito Marks MD Service: (none) Author Type: Physician Filed: 12/14/12 0222 Note Time: 12/14/121406 Status: Signed Official Court Interpreter: Torito Marks MD (Physician) NAME: KATHY MCKEON VISIT: [id number] DICTATING CLINICIAN: TORITO MARKS MD JOB: [id number] Med JOB: [id number] LOC: 3711 CLINIC PROGRESS NOTE DATE OF [...] myelopathy documented in this encounter Care Teams Operating Room Surgical Technician Relationship Specialty Start Date End Date Abiad Martell MD PCP - General 11/28/[address] [place] [address] documented as of this encounter
--- OUTSIDE RECORDS SUMMARY | 2022-02-09 08:47 | XMS_ITS | Encounter Summary ---
:1945 Author Organization [facility] Address [address] [place] [address] Care Team Providers Name Role Phone Unavailable Primary Care Provider Unavailable Reason for Visit Reason Comments Post Op Exam Encounter Details Date Type Department Care Team Description 03/18/2012 Office Visit [facility] MD Follow-up CENTER [address] [place] [address] examination, [address] [place], [place] following unspecified [place], [place] [address] surgery (Primary Dx) [phone] (Wo rk) Social History Tobacco Use Types Packs/Day Years Used Date Smoking Tobacco: Never Assessed Sex Assigned at Date Recorded Not on file documented as of this encounter Patient Instructions Patient InstructionsAde Murillo - 03/18/2012 10:[address] Eric Ellis MD Orthopaedic Surgeon Java Development Manager: Ade Murillo Please call Ade for all administrative questions at [phone] Orthopaedic Finish Carpenter: JOSELO Carmona Please contact Nancy for all medical questions at [phone] Please contact your Pharmacy for all medication refill requests Your Provider would like you to schedule a Follow Up for 1 month Appointment Scheduling: Can be done at the commercial front load driver or by calling our main number [phone] documented in this encounter Progress Notes Eric Ellis MD - 03/19/2012 9:27 AM CST Progress Notes signed by Eric Ellis MD at 03/22/121728 Author: Eric Ellis MD Service: (none) Author Type: Physician Filed: 03/22/121728 Note Time: 03/19/12926 Status: Signed Auto Inspection Specialist: Eric Ellis MD (Physician) NAME: KATHY MCKEON VISIT: [id number] DICTATING CLINICIAN: ERIC ELLIS MD JOB: [id number] Med JOB: [id number] LOC: 3711 CLINIC PROGRESS NOTE DATE OF [...] x-ray. IM: 03/19/2012 11:48:47 am MT: 18 RVISOR CONCRETE STONE FINISHING documented in this encounter Plan of Treatment Not on filedocumented as of this encounter Visit Diagnoses Diagnosis Follow-up examination, following unspeci fied surgery - Primary documented in this encounter
--- OUTSIDE RECORDS SUMMARY | 2022-02-09 08:47 | XMS_ITS | Encounter Summary ---
:1945 Author Organization [facility] Address [address] [place] [address] Care Team Providers Name Role Phone Abida Martell MD Primary Care Provider Reason for Visit Reason Comments ARM PAIN Encounter Details Date Type Department Care Team Description 01/04/2013 Office Visit [facility] Torito Marks Ulna r neuropathy CENTER (Primary Dx) [address] [place] [address] [place] [address] [place], [place] [phone] (Wo rk) Social History Tobacco Use Types Packs/Day Years Used Date Smoking Tobacco: Never Assessed Sex Assigned at Date Recorded Not on file documented as of this encounter Patient Instructions Patient InstructionsKendrick Iyer MA - 01/04/2013 11:[address] Torito Marks MD Musculoskeletal Medicine Please contact [facility] for all administrative questions at [phone] Please contact the Spine Nurse for all medical related questions at [phone] Office Hours: Wednesday-Wednesday and AM Please contact your Pharmacy for all medication refill requests prior to Wednesday. Please allow 24 hours. documented in this encounter Progress Notes Torito Marks MD - 01/04/2013 1:26 PM CDT NAME: KATHY MCKEON VISIT: [id number] DICTATING CLINICIAN: TORITO MARKS MD JOB: [id number] Med JOB: [id number] LOC: 3711 CLINIC ADDENDUM DATE OF VISIT: [...] 0756 Note Time: 01/06/13 101 Status: Signed Pickers Material Handlers: Torito Marks MD (Physician) NAME: KATHY MCKEON VISIT: [id number] DICTATING CLINICIAN: TORITO MARKS MD JOB: [id number] Med JOB: [id number] LOC: 3711 CLINIC PROGRESS NOTE DATE OF [...] nerve documented in this encounter Care Teams Feller Hand Relationship Specialty Start Date End Date Abida Martell MD PCP - General 11/[address] [place] [address] documented as of this encounter
--- OUTSIDE RECORDS SUMMARY | 2022-02-09 08:47 | XMS_ITS | Encounter Summary ---
:1945 Author Organization [facility] Address [address] [place] [address] Care Team Providers Name Role Phone Unavailable Primary Care Provider Unavailable Reason for Visit Reason Comments Post Op Exam Clavicle Injury Encounter Details Date Type Department Care Team Description 03/03/2012 Office Visit [facility] Eric Ellis MD Unspecified part of closed fracture of c lavicle; CENTER [address] [place] [address] Unspecified closed fracture of ankle [address] [place], [place] [address] [phone] (Wo rk) Social History Tobacco Use Types Packs/Day Years Used Date Smoking Tobacco: Never Assessed Sex Assigned at Date Recorded Not on file documented as of this encounter Progress Notes Eric Ellis MD - 03/05/2012 9:32 AM CST Progress Notes signed by Eric Ellis MD at 03/10/12 728 Author: Eric Ellis MD Service: (none) Author Type: Physician Filed: 03/10/121728 Note Time: 03/05/12931 Status: Signed Rn Family: Eric Ellis MD (Physician) NAME: KATHY MCKEON VISIT: [id number] DICTATING CLINICIAN: ERIC ELLIS MD JOB: [id number] [facility] JOB: [id number] LOC: 3711 CLINIC PROGRESS NOTE DATE OF VISIT: 03/03/2012 : 1945 HISTORY: The patient is a 67-year-old female who presents for follow up evaluation of her right ankle. She underwent an open reduction and internal fixation of her right ankle in [place] in December and she also had a [...] convenience. IM: 03/05/2012 12:48:22 pm MT: 10 CTIC INSTRUCTOR documented in this encounter Plan of Treatment Not on filedocumented as of this encounter Procedures Procedure Name Priority Date/Time Associated Diagnosis Comme nts XR ANKLE RT 3 VIEWS Routine 03/03/2012 11:23 AM Unspecified cl osed Results for this DIDACTIC INSTRUCTOR fracture of ankle procedure are in the results section. XR CLAVICLE RT 2+ Routine 03/03/2012 11:23 AM Unspecified part of Results for this VIEWS DIDACTIC INSTRUCTOR closed fracture of procedure are in clavicle the results section. documented in this encounter Results XR Clavicle Rt 2+ Views (03/03/2012 11:23 AM DIDACTIC INSTRUCTOR) Anatomical Region Laterality Modality Upper Extremity, Chest, Shoulder Other Specimen (Source) Anatomical Location Collection Method / Collectio n Time Received Time / Laterality Volume Narrative 03/09/2012 1:58 PM DIDACTIC INSTRUCTOR AP and apical lordotic views of the [...] Ankle Rt 3 Views (03/03/2012 11:23 AM DIDACTIC INSTRUCTOR) Anatomical Region Laterality Modality Lower Extremity, Ankle, Foot & Ankle Oth er Specimen (Source) Anatomical Location Collection Method / Collectio n Time Received Time / Laterality Volume Narrative 03/09/2012 1:58 PM DIDACTIC INSTRUCTOR Three views of the patient's right ankle [...]
--- OUTSIDE RECORDS SUMMARY | 2022-02-09 08:47 | XMS_ITS | Encounter Summary ---
:1945 Author Organization [facility] Address [address] [place] [address] Care Team Providers Name Role Phone Abida Martell MD Primary Care Provider Reason for Visit Reason Comments Neck Pain Encounter Details Date Type Department Care Team Description 11/28/2012 Surgical Consult Torito Sharp pain (Primary Dx); [facility] Cervical spondylosis without myelopathy [address] [place] [address] Dr [place], [place] [address] [phone] Social History Tobacco Use Types Packs/Day Years [...] contact Abby for all administrative questions at [phone] Please contact the Spine Nurse for all medical related questions at [phone] Please contact your Pharmacy for all medication refill requests Your Provider would like you to schedule a Follow Up as needed with Dr. Marks Appointment Scheduling: Can be done at the front facer or by calling our main number [phone] documented in this encounter Progress Notes Torito Marks MD - 11/28/2012 2:28 PM CDT Progress Notes signed by Torito Marks MD at 11/30/121 Author: Torito Marks MD Service: (none) Author Type: Physician Filed: 11/30/12 1321 Note Time: 11/30/12955 Status: Signed Gunner'S Mate: Torito Marks MD (Physician) NAME: KATHY MCKEON VISIT: [id number] DICTATING CLINICIAN: TORITO MARKS MD JOB: [id number] Med JOB: [id number] LOC: 3711 CLINIC PROGRESS NOTE DATE OF VISIT: 11/28/2012 : 1945 CHIEF COMPLAINT: Right side neck and right arm pain. HISTORY OF PRESENT ILLNESS: Kathy is a very pleasant 67-year-old woman who lives in [place], [place]. She is retired. She has had [...] normal light touch to all fingers. Normal senior graphic designer strength, finger abduction strength, wrist flexion and [...] physical therapy with [facility], in [place]. She will follow up with me after her scan to go over results and make further plans. FINAL ASSESSMENT: Cervical spondylosis. cc: [facility] IM: 11/28/2012 02:45:25 pm MT: 17 Mail to: [facility] [address] [place] [address] documented in this encounter Plan of Treatment Not on filedocumented as of this encounter Visit Diagnoses Diagnosis Neck pain - Primary Cervicalgia Cervical spondylosis without myelopathy (HRC) Cervical spondylosis without myelopathy documented in this encounter Care Teams Television Production Technician Relationship Specialty Start Date End Date Abida Martell MD PCP - General [address] [place] [address] documented as of this encounter
--- OUTSIDE RECORDS SUMMARY | 2022-02-09 08:47 | XMS_ITS | Encounter Summary ---
:1945 Author Organization [facility] Address [address] [place] [address] Care Team Providers Name Role Phone Abida Martell MD Primary Care Provider Encounter Details Date Type Department Care Team Description 11/28/2012 Imaging [facility] MRI Neck pain [address] [place], [place] [address] Social History Tobacco Use Types [...] Cervicalgia documented in this encounter Care Teams Novelty Chain Maker Relationship Specialty Start Date End Date Abida Martell MD PCP - General 11/28/[address] [place] [address] documented as of this encounter
--- OUTSIDE RECORDS SUMMARY | 2022-02-09 08:47 | XMS_ITS | Encounter Summary ---
:1945 Author Organization [facility] Address [address] [place] [address] Care Team Providers Name Role Phone Unavailable Primary Care Provider Unavailable Encounter Details Date Type Department Care Team Description 03/10/2012 Hospital Encounter Eric Mckeon MD Surgery Center [address] [place] [address] 8100 [place] [address] [place], [place] [address] [phone] Social History Tobacco Use Types Packs/Day Years [...] 76.2 kg (168 lb) 03/07/2012 11:00 AM SENIOR STAFF SPECIALIZED EMPLOYMENT Height 160 cm (5' 3) 03/07/2012 11:00 AM SENIOR STAFF SPECIALIZED EMPLOYMENT Body Mass Index 29.76 03/07/2012 11:00 AM SENIOR STAFF SPECIALIZED EMPLOYMENT documented in this encounter Medications at Time [...] signed by Eric Ellis MD at 03/10/12 8899 Author: Eric Ellis MD Service: (none) Author Type: Physician Filed: 03/10/12 1389 Note Time: 03/10/12 1333 Status: Signed Credit Administrator: Eric Ellis MD (Physician) NAME: KATHY MCKEON ENCOUNTER: [id number] DICTATING CLINICIAN: ERIC ELLIS MD JOB: [id number] Med JOB: [id number] LOC: 3725 OPERATIVE REPORT : 1945 DATE OF OPERATION: 03/10/2012 PREOPERATIVE DIAGNOSIS: Painful syndesmosis screw, right ankle; status post ORIF right Crowe C ankle fracture. POSTOPERATIVE DIAGNOSIS: Painful syndesmosis screw, right ankle; status post ORIF right Crowe C ankle fracture. PROCEDURE PERFORMED: Removal of syndesmosis screw under local standby anesthesia, right ankle. SURGEON: ERIC ELLIS MD AGRIBUSINESS PROFESSOR: REMINGTON APARICIO MD - Dr. Aparicio assisted [...] well in the PAR. MT: 3 IM: OR STAFF SPECIALIZED EMPLOYMENT documented in this encounter Miscellaneous Notes Medication [...] Frequency:EVERY 5 MIN PRN *No Administrations Recorded OR STAFF SPECIALIZED EMPLOYMENT documented in this encounter Plan of Treatment Not on filedocumented as of this encounter Visit Diagnoses Not on filedocumented in this encounter
--- OUTSIDE RECORDS SUMMARY | 2022-02-09 08:47 | XMS_ITS | Encounter Summary ---
:1945 Author Organization [facility] Address [address] [place] [address] Care Team Providers Name Role Phone Unavailable Primary Care Provider Unavailable Reason for Visit Reason Comments Post Op Exam Encounter Details Date Type Department Care Team Description 04/14/2012 Office Visit [facility] Eric Ellis MD Ankle pain, right (Primary Dx); CENTER [address] [place] [address] Follow-up examination, following unspeci fied surgery [address] [place], [place] [address] [phone] (Wo rk) Social History Tobacco Use Types Packs/Day Years Used Date Smoking Tobacco: Never Assessed Sex Assigned at Date Recorded Not on file documented as of this encounter Progress Notes Eric Ellis MD - 04/14/2012 12:07 PM CST Progress Notes signed by Eric Ellis MD at 04/20/12 1307 Author: Eric Ellis MD Service: (none) Author Type: Physician Filed: 04/20/12 5867 Note Time: 04/14/12 1207 Status: Signed General Forecaster: Eric Ellis MD (Physician) NAME: KATHY MCKEON VISIT: [id number] DICTATING CLINICIAN: ERIC ELLIS MD JOB: [id number] Med JOB: [id number] LOC: 3711 CLINIC PROGRESS NOTE DATE OF VISIT: 04/14/2012 : 1945 HISTORY: The patient is a 67-year-old female who is now just over 3 months status post ORIF of right ankle trimalleolar fracture done in [place]. On 03/10/2012 I took out her syndesmosis screw and she is in for followup evaluation. She is still having morning stiffness especially. She also has pain with prolonged walking. She has no feeling of instability and no swelling. It is getting better, but she is frustrated at this slow pain. PHYSICAL EXAM: On exam she has virtually symmetric range of motion and dorsi and plantar flexion of that ankle. She has some sensitivity over the plate and the incisions laterally but has a stable ankle. There is no grating or crepitus noted in her ankle. There is no deformity that I note. Sensation and pulses are intact distally. X-RAYS: X-rays are ordered and independently reviewed. Right ankle, 3 views, including AP, lateral and a mortise view. There is a healed distal third fibular fracture with plate and screws in place. There are also 2 screws in the tibia affixing a posterior malleolar fracture. The mortise appears anatomic and there is no sign of widening of the syndesmosis post screw removal. IMPRESSION: Satisfactory progress and healing of right ankle fracture. PLAN: I reassured her that it is just a matter of time, giving it more time and more strengthening. I would be happy to see her back if she ultimately has difficulty with the plate and screws for the removal, but I would like to at least wait a year before removal of the rest of the hardware if that is necessary. All her questions were answered. Total time 15 minutes, counseling time 10 minutes. IM: 04/14/2012 12:43:39 pm MT: 27 TYPE OPERATOR documented in this encounter Plan of Treatment Not on filedocumented as of this encounter Procedures Procedure Name Priority Date/Time Associated Diagnosis Comme nts XR ANKLE RT 3 VIEWS Routine 04/14/2012 11:34 AM Ankle pain, ri ght Results for this ROBOTYPE OPERATOR procedure are i n the results section. documented in this encounter Results XR Ankle Rt 3 Views (04/14/2012 11:34 AM ROBOTYPE OPERATOR) Anatomical Region Laterality Modality Lower Extremity, Ankle, Foot & Ankle Oth er Specimen (Source) Anatomical Location Collection Method / Collectio n Time Received Time / Laterality Volume Narrative 04/19/2012 9:49 PM ROBOTYPE OPERATOR Right ankle, 3 views, including AP, late ral and a mortise view There is a healed distal third fibular f racture with plate and screws in place. ??There are also 2 screws in t he tibia affixing a posterior malleolar fracture. ??The mortise appear s anatomic and there is no sign of widening of the syndesmosis post screw removal. NAE/kf Procedure Note Eric Ellis MD - 10/12/2015Formattin g of this note might be different from the original. Right ankle, 3 views, including AP, late ral and a mortise view There is a healed distal third fibular f racture with plate and screws in place. There are also 2 screws in the tibia affixing a posterior malleolar fracture. The mortise appears anatomic and there is no sign of widening of the syndesmosis post screw removal. NAE/kf Eric Ellis MD RAD GD documented in this encounter Visit Diagnoses Diagnosis Ankle pain, right - Primary Pain in joint, ankle and foot Follow-up examination, following unspeci fied surgery documented in this encounter
--- OUTSIDE RECORDS SUMMARY | 2022-02-09 08:47 | XMS_ITS | Encounter Summary ---
:1945 Author Organization [facility] Address [address] [place] [address] Care Team Providers Name Role Phone Abida Martell MD Primary Care Provider Encounter Details Date Type Department Care Team Description 01/23/2013 Hospital Encounter [facility] , Pablo Sotut, Surgery Center [address] [facility] [address] [place] [address] [place] [address] [phone] (Wo rk) Social History Tobacco Use Types [...] signed by Pablo Anderson MD at 01/23/13 743 Author: Pablo Anderson MD Service: (none) Author Type: Physician Filed: 01/23/13 1349 Note Time: 01/23/131348 Status: Signed Service Line Coordinator: Pablo Anderson MD (Physician) [facility] Patient Name: Kathy Barajas Gender: [...] identified and protected. Proximally, the arcade of [place] were released. The ulnar nerve was traced [...] on filedocumented in this encounter Care Teams Replanting Machine Crew Relationship Specialty Start Date End Date Abida Martell MD PCP - General 11/28/[address] [place] [address] documented as of this encounter
--- OUTSIDE RECORDS SUMMARY | 2022-02-09 08:47 | XMS_ITS | Encounter Summary ---
:1945 Author Organization [facility] Address [address] [place] [address] Care Team Providers Name Role Phone Abida Martell MD Primary Care Provider Reason for Visit Reason Comments CONSULT Encounter Details Date Type Department Care Team Description 01/18/2013 Surgical Consult [facility] Nelly Wallace pain (Primary Dx); [facility] Trigger finger (acquired); [address] [facility] [address] [place] [address] Ulnar neuropathy; [place], [place] CTS (carp al tunnel syndrome) [id number] [phone] Social History Tobacco Use Types Packs/Day Years [...] Wallace MD Hand & Upper Extremity Surgeon Climate Change Analyst: Noa Gomez Please contact Noa for all surgery scheduling and administrative questions at [phone] Please contact Nurse Triage for all medical related questions at [phone] Please contact your Pharmacy for all medication refill requests Patient to schedule surgery. documented in this encounter Progress Notes Nelly Wallace MD - 01/18/2013 4:10 PM CDT Progress Notes signed by Nelly Wallace MD at 01/25/131605 Author: Nelly Wallace MD Service: (none) Author Type: Physician Filed: 01/25/13 1606 Note Time: 01/24/13852 Status: Signed Water Taxi Driver: Nelly Wallace MD (Physician) NAME: KATHY MCKEON VISIT: [id number] DICTATING CLINICIAN: NELLY WALLACE MD JOB: [id number] Med JOB: [id number] LOC: 3711 CLINIC PROGRESS NOTE DATE OF [...] syndrome documented in this encounter Care Teams Qual Research Manager Relationship Specialty Start Date End Date Abida Martell MD PCP - General [address] [place] [address] documented as of this encounter
--- OUTSIDE RECORDS SUMMARY | 2022-02-09 08:47 | XMS_ITS | Encounter Summary ---
:1945 Author Organization [facility] Address [address] [place] [address] Care Team Providers Name Role Phone Unavailable Primary Care Provider Unavailable Reason for Visit Reason Comments Post Op Exam Encounter Details Date Type Department Care Team Description 02/04/2012 Office Visit [facility] Eric Beavers MD Unspecified [facility] [address] [facility] fracture of ankle [address] [place], [place] (Primary Dx) [place], [place] [phone] (Wo rk) Social History Tobacco Use Types Packs/Day Years Used Date Smoking Tobacco: Never Assessed Sex Assigned at Date Recorded Not on file documented as of this encounter Patient Instructions Patient InstructionsAde Murillo - 02/04/2012 11:[address] Eric Ellis MD Orthopaedic Surgeon Welfare Worker: Ade Murillo Please call Ade for all administrative questions at [phone] Orthopaedic Surgical Corsetier: JOSELO Carmona Please contact Nancy for all medical questions at [phone] Please contact your Pharmacy for all medication refill requests Partial weight-bearing for two weeks, advance to full weight bearing after two weeks, as tolerated. Follow Up in 4 weeks. Appointment Scheduling can be done at the front end developer or by calling our main number [phone] documented in this encounter Progress Notes Eric Ellis MD - 02/04/2012 12:04 PM CDT Progress Notes signed by Eric Ellis MD at 02/08/12 1212 Author: Eric Ellis MD Service: (none) Author Type: Physician Filed: 02/08/12 1212 Note Time: 02/04/12 1204 Status: Signed Clothing Presser: Eric Ellis MD (Physician) NAME: KATHY MCKEON VISIT: [id number] DICTATING CLINICIAN: ERIC ELLIS MD JOB: [id number] [facility] JOB: [id number] LOC: 3711 CLINIC PROGRESS NOTE DATE OF VISIT: 02/04/2012 : 1945 HISTORY: The patient is a 67-year-old who presents for a follow up evaluation of her right ankle. She is about 4 weeks status post ORIF of a right fibular fracture with syndesmotic disruption. She also had a posterior malleolar component to that and had that fixed. It was fixed in [place]. She has a clavicle fracture, which predated [...]
--- OUTSIDE RECORDS SUMMARY | 2022-02-09 08:47 | XMS_ITS | Encounter Summary ---
:1945 Author Organization [facility] Address [address] [place] [address] Care Team Providers Name Role Phone Abida Martell MD Primary Care Provider Encounter Details Date Type Department Care Team Description 01/18/2013 Imaging [facility] Thumb pain [address] [place], [place] [address] Social History Tobacco Use Types [...] limb documented in this encounter Care Teams Sleeping Car Conductor Relationship Specialty Start Date End Date Abida Martell MD PCP - General [address] [place] [address] documented as of this encounter
[2022-02-09 11:52] LABS: Albumin* 4.7 g/dL (3.3-5.0); Chloride* 102 mmol/L (96-114); Sodium* 140 mmol/L (135-149)
[2022-02-09 11:54] LABS: Bilirubin Total* 0.7 mg/dL (0.1-1.5); Carbon Dioxide* 28 mmol/L (20-32); Cholesterol* 228 mg/dL (90-199); Creatinine* 0.8 mg/dL (0.5-1.5); Estimated Glomerular Filt Rate 75 ml/min; Total Protein* 7.5 g/dL (6.0-8.3)
[2022-02-09 11:55] LABS: Alanine Aminotransferase* 17 U/L (4-35); Alkaline Phosphatase* 92 U/L (40-150); Aspartate Amino Transferase* 27 U/L (12-35); Blood Urea Nitrogen* 21 mg/dL (7-30); Calcium* 10.2 mg/dL (8.4-10.6); Glucose* 122 mg/dL (60-115); HDL Cholesterol* 81 mg/dL (>=50); LDL Cholesterol Calculated 127 mg/dL (<100); Triglycerides* 98 mg/dL (40-149)
[2022-02-09 12:12] LABS: Vitamin D 25 Hydroxy* 33 ng/mL (30-80)
== END 2022-02-09 09:31 | disposition home or self-care (01) ==
PROVIDERS: PCP Internal Medicine; Visit Provider Family Medicine
DX: Z00.00 Encounter for general adult medical examination without abnormal findings (principal); I10 Essential (primary) hypertension; M85.80 Other specified disorders of bone density and structure, unspecified site; R73.03 Prediabetes; Z13.6 Encounter for screening for cardiovascular disorders; F41.9 Anxiety disorder, unspecified
CPT/HCPCS: 80053; 80061; 82306

== ENCOUNTER 2022-06-16 09:12 | Outpatient (CLI) | payer MEDICARE, OTHER, SELFPAY | END 2022-06-16 09:13 | disposition home or self-care (01) | LOC: INJ CL 09:13 | PROVIDERS: PCP Internal Medicine; Visit Provider Family Medicine | DX: M48.062 Spinal stenosis, lumbar region with neurogenic claudication (principal); M54.16 Radiculopathy, lumbar region; M51.36 Other intervertebral disc degeneration, lumbar region | CPT/HCPCS: 62323; J0702; Q9966 ==

== ENCOUNTER 2022-10-30 06:08 | Outpatient (CLI) | payer MEDICARE, OTHER, SELFPAY | END 2022-10-30 06:09 | disposition home or self-care (01) | LOC: OP CLINIC 06:08 | PROVIDERS: PCP Internal Medicine; Visit Provider Internal Medicine | DX: R93.3 Abnormal findings on diagnostic imaging of other parts of digestive tract (principal); K64.8 Other hemorrhoids; K57.30 Diverticulosis of large intestine without perforation or abscess without bleeding | CPT/HCPCS: 45378; J2250; J3010 ==

== ENCOUNTER 2023-01-14 15:15 | Outpatient (CLI) | payer MEDICARE, OTHER, SELFPAY ==
--- OUTSIDE RECORDS SUMMARY | 2023-01-14 15:21 | XMS_ITS | Continuity of Care Document ---
Author Name Unknown Organization [facility] Address [address] [place] [address] Phone Care Team Providers Care [place] Name Role Phone Ravindra Navarro Unavailable Unavailable Allergies, Adverse Reactions, Alerts Substance Reaction Status Criticality Sulfa (Sulfonamide Antibiotics) Active No Information Medications Medication Instructions Dosage Effective Dates (start - stop) Status Comments PROBIOTIC (unknown strength) Not Available - Active ATENOLOL (unknown strength) Not Available - Active GUAIFENESIN (unknown strength) Not Available - Active HYDROCHLOROTHIAZIDE (unknown strength) Not Available - Active PANTOPRAZOLE SODIUM (unknown strength) Not Available - Active Procedures Procedure Date Office/Outpatient Visit,Est, Mod 2022 Office/Outpatient Visit,New, Mod 2021 Advance Directives Directive Yes / No Effective Date File Name No Information Encounters Encounter Description Practice Location Reason(s) For Visit Diagnoses Date Provider Providers Copied on Encounter [facility], [address], [place], [id number], [place] tel:[phone] [facility] No Information Denny Waite. [facility] [place], [address], [place], [place], [id number] , [place]. tel:[phone] Office/Outpat ient Visit,Est, Mod [facility], [address], [place], [id number], [place] tel:[phone] [facility] Spinal stenosis, lumbar region with neurogenic claudication Denny Waite. [facility], [address], [facility], [place], [id number] , [place]. tel:[phone] Referring Provider: Ilia Murillo, [facility] [address], [facility] [place], [address]. tel:[phone] Office/Outpat ient Visit,[facility], [facility], [address], [facility] [place], [id number], [place] tel:[phone] [facility] Low back pain Lidia Morillo. [facility], [address], [place], [address], [place]. tel:[phone] Referring Provider: Ilia Murillo, [facility] [address], [facility] [place], [address]. tel:[phone] Family History Family Member Type Diagnosis Age At Onset No Information Payers Payer name Insurance type Covered alliance party ID Authoriza dona(s) [employer] Anders [id number] Social History Type Description Quantity Date Captured Comments Sex Female Smoking Status No Information Chief Complaint And Reason For Visit No Information Reason For Referral Reason For Referral No Information History Of Present Illness Encounter Date Complaint History Of Prese nt Illness No Information Functional Status Date Functional Assessmen t No Information Instructions Date Instruction Additional Infor mation No Information Assessments Type Assessment Date No Information Patient Care Teams Name Effective Dates (start - stop) Status Members No Information
--- NOTE | 2023-01-14 15:30 | CRLHL7_ITS ---
For Patients: As a result of the Century Cures Act, medical imaging exams and procedure reports are released immediately into your electronic medical record. You may view this report before your referring provider. If you have questions, please contact your health care provider. Indication: Arthrodesis status Technique: Multiplanar, multisequence, MRI of the lumbar spine, obtained without contrast. Comparison: MRI lumbar spine 02/04/2022 Findings: Preserved lumbar lordosis. Trace retrolisthesis at L1-2. No acute osseous abnormality. Interbody fusion changes at L4-5 and L5-S1. Modic type 1 endplate changes at L3-4. The conus medullaris terminates at L2. No suspicious findings identified in the paraspinal soft tissues. Unremarkable included SI joints. T11-T12: Shallow central disc protrusion. No significant neural foraminal or spinal canal stenosis. T12-L1: No significant neural foraminal or spinal canal stenosis. L1-L2: Retrolisthesis, mild facet arthropathy. Mild right neural foraminal narrowing. No left neural foraminal or spinal canal stenosis. L2-L3: Mild diffuse disc bulge, right asymmetric facet arthropathy. Mild right neural foraminal narrowing. No left neural foraminal stenosis. Mild spinal canal narrowing. L3-L4: Diffuse disc bulge, facet arthropathy. Moderate bilateral neural foraminal stenosis. Severe spinal canal stenosis. L4-L5, L5-S1: Postop changes. No significant neural foramina or spinal canal stenosis. Impression: 1. Stable interbody fusion changes at L4-5 and L5-S1. 2. At L3-4, diffuse disc bulge, facet arthropathy, and Modic type 1 endplate changes. Moderate bilateral neural foraminal stenosis, and severe spinal canal stenosis. 3. At L2-3, mild diffuse disc bulge and right asymmetric facet arthropathy. Mild right neural foraminal narrowing, and mild spinal canal narrowing. Dictated by Nicole Sampson MD @ 01/15/2023 10:44:07 AM (Electronically Signed)
== END 2023-01-14 15:16 | disposition home or self-care (01) ==
LOC: MRI 15:18
PROVIDERS: PCP Internal Medicine; Visit Provider Physician Assistant
DX: Z98.1 Arthrodesis status (principal); M51.24 Other intervertebral disc displacement, thoracic region; M51.26 Other intervertebral disc displacement, lumbar region
CPT/HCPCS: 72148

== ENCOUNTER 2023-01-15 10:59 | Outpatient (CLI) | payer MEDICARE, OTHER, SELFPAY | END 2023-01-15 11:00 | disposition home or self-care (01) | LOC: INJ CL 11:00 | PROVIDERS: PCP Internal Medicine; Visit Provider Family Medicine | DX: M54.16 Radiculopathy, lumbar region (principal); M48.062 Spinal stenosis, lumbar region with neurogenic claudication | CPT/HCPCS: 64483; J1100; Q9966 ==

== ENCOUNTER 2023-01-25 11:49 | Emergency (ER) | payer MEDICARE, OTHER, SELFPAY ==
[2023-01-25] VITALS (19 sets, daily range): BP systolic 148–174; BP diastolic 79–96; PULSE 63–78; RESP 14; TEMP 36.4; O2SAT 95–100; BMI 26.6
--- NOTE | 2023-01-25 12:45 | CRLHL7_ITS ---
For Patients: As a result of the Cures Act, medical imaging exams and procedure reports are released immediately into your electronic medical record. You may view this report before your referring provider. If you have questions, please contact your health care provider. INDICATION: Stroke, vertigo. COMPARISON: None. TECHNIQUE: CT of the head without IV contrast. Coronal and sagittal reconstructions. FINDINGS: No intracranial hemorrhage, mass effect, or evidence of acute infarct. No midline shift. No abnormal extra-axial fluid collections. Mild generalized cerebral and cerebellar volume loss with associated ex vacuo dilation of the lateral ventricles. Mild chronic small vessel ischemic disease. Intracranial vascular calcifications. Orbits and extraocular muscles are symmetric. The paranasal sinuses and mastoid air cells are clear. No acute fracture identified. Soft tissues are unremarkable. IMPRESSION: 1. No acute intracranial findings. 2. Findings discussed with Gladys Navarro at 1:11 p.m. on 01/25/2023. Please note that all CT scans at this facility use dose modulation, iterative reconstruction, and/or weight-based dosing when appropriate to reduce radiation dose to as low as reasonably achievable. Dictated by Vivian Don MD @ 01/25/2023 1:12:23 PM (Electronically Signed)
--- NOTE | 2023-01-25 12:48 | CRLHL7_ITS ---
For Patients: As a result of the Century Cures Act, medical imaging exams and procedure reports are released immediately into your electronic medical record. You may view this report before your referring provider. If you have questions, please contact your health care provider. DATE: 01/25/2023 CLINICAL HISTORY: Patient with focal neurological deficits. TECHNIQUE: Standard helical CT image acquisition of the neck up to the skull base after bolus intravenous contrast enhancement. 2D and 3D MIP images for post-processing were performed and interpreted on an independent workstation and 3D images were permanently archived. COMPARISON: CT same day. FINDINGS: The origins of the great vessels from the aortic arch are patent. The origin of the right vertebral artery is patent. The origin of the left vertebral artery is patent. The common carotid arteries are patent. There is no stenosis at the origin of the right internal carotid artery. There is plaque without stenosis at the origin of the left internal carotid artery. The rest of the cervical segments of the internal carotid arteries are patent up to the skull base. The right vertebral artery is dominant. The cervical segments of the vertebral arteries are patent up to the skull base. The visualized lung apices demonstrate scattered ground-glass opacities. The thyroid gland is unremarkable. The soft tissues of the neck are unremarkable. There are degenerative changes in the cervical spine. IMPRESSION: Normal CT angiogram of the neck. Please note that all CT scans at this facility use dose modulation, iterative reconstruction, and/or weight-based dosing when appropriate to reduce radiation dose to as low as reasonably achievable. Dictated by Alex Hunter MD @ 01/26/2023 10:55:27 AM (Electronically Signed)
--- NOTE | 2023-01-25 12:48 | CRLHL7_ITS ---
For Patients: As a result of the Century Cures Act, medical imaging exams and procedure reports are released immediately into your electronic medical record. You may view this report before your referring provider. If you have questions, please contact your health care provider. DATE: 01/25/2023 CLINICAL HISTORY: Patient with focal neurological deficits. TECHNIQUE: Standard helical CT image acquisition through the intracranial circulation following intravenous administration of contrast material with bolus tracking. 2D and 3D MIP images for post-processing were performed and interpreted on an independent workstation and 3D images were permanently archived. COMPARISON: CT same day. FINDINGS: There is no cerebral aneurysm or large vessel occlusion. The right internal carotid artery is normal. The right middle cerebral artery and its branches are normal. The right anterior cerebral artery and its branches are normal. The left internal carotid artery is normal. The left middle cerebral artery and its branches are normal. The left anterior cerebral artery and its branches are normal. The anterior communicating artery is well visualized and appears normal. The right vertebral artery and PICA are normal. The left vertebral artery and PICA are normal. The right vertebral artery is dominant. The basilar artery is patent and appears normal. The right posterior cerebral artery is normal. The left posterior cerebral artery is normal. The visualized venous structures are patent. IMPRESSION: Normal CT angiogram of the head without intracranial aneurysm or other neurovascular abnormality. Please note that all CT scans at this facility use dose modulation, iterative reconstruction, and/or weight-based dosing when appropriate to reduce radiation dose to as low as reasonably achievable. Dictated by Alex Hunter MD @ 01/26/2023 10:57:39 AM (Electronically Signed)
--- NOTE | 2023-01-25 13:08 | ED_ITS ---
HPI - General Adult General Date Seen: 01/25/23 Chief complaint: Dizziness/Vertigo Stated complaint: Dizziness, hearing issues, high BP Time Seen by Provider: 01/25/23 12:31 Source: patient Mode of arrival: ambulatory Limitations: no limitations History of Present Illness HPI narrative: Patient is a 78-year-old female with a history of hypertension and vertigo presenting to emergency department for dizziness. She states she has been had vertigo in the past and has had chronic ear fullness for several months now but notes today at 09:30 she became dizzy again. She states symptoms are worse when she is up and moving around. She has a hard time definitively describing symptoms but states she feels more lightheaded and who then feels like the the room starts to spin a little. When she is laying in bed she still mildly has the symptoms but they are not as bad. Head movement does not affect the symptoms. Denies chest pain, shortness of breath, fevers, chills, numbness, weakness, fatigue, abdominal pain. She did have some associated nausea with it but is not currently nauseated. Does complain of a mild headache that just started. She also notes her blood pressure has been elevated today. She is usually in the 130s but today was in the 170s. Her son is in the room with her and states she appears to be neurologically intact in acting normally. Related Data Previous Rx's Medication Instructions Recorded diazepam 5 mg tablet 5 mg PO TID PRN anxiety #14 tabs 12/30/21 pantoprazole 20 mg tablet,delayed 20 mg PO QDAY #90 tabs 02/17/22 release trazodone 50 mg tablet 50 mg PO QDAY #90 tabs 02/17/22 atenolol 25 mg tablet 25 mg PO QDAY #120 tabs 10/05/22 peg 3350-electrolytes 236 4,000 ml PO DIRECTED #1 mL 10/14/22 gram-22.74 gram-6.74 gram-5.86 gram solution (Golytely) peg 3350-electrolytes 236 240 ml PO ONCE #4,000 mL 10/14/22 gram-22.74 gram-6.74 gram-5.86 gram solution (Golytely) hydrochlorothiazide 12.5 mg capsule 12.5 mg PO QDAY #90 caps 12/08/22 meclizine 25 mg tablet 25 mg PO QID #20 tabs 01/25/23 Allergies Allergy/AdvReac Type Severity Reaction Status Date / Time celecoxib [From Celebrex] Allergy Mild Itching Verified 10/13/22 09:01 Sulfa (Sulfonamide Allergy Mild Rash Verified 10/13/22 09:01 Antibiotics) lisinopril AdvReac Mild tight Verified 10/13/22 09:01 feeling in chest Review of Systems Status of ROS: Reports: 10 or more systems reviewed and unremarkable except as noted in History and below PFSH PFS Surgical History Status post bunionectomy (11/13/08) ?Z98.890 - Other specified postprocedural states (ICD-10) History of cataract surgery ?Z98.49 - Cataract extraction status, unspecified eye (ICD-10) Toe fracture, right ?S92.911A - Unspecified fracture of right toe(s), initial encounter for closed fracture (ICD-10) History of bunionectomy ?Z98.890 - Other specified postprocedural states (ICD-10) History of lumbar fusion ?Z98.1 - Arthrodesis status (ICD-10) History of basal cell carcinoma excision ?Z98.890 - Other specified postprocedural states (ICD-10) ?Z85.828 - Personal history of other malignant neoplasm of skin (ICD-10) History of lower leg fracture ?Z87.81 - Personal history of (healed) traumatic fracture (ICD-10) Family History Father FH: colonic polyps Other Colon cancer Osteopenia Social History Smoking Status: Former smoker Do you use any of these nicotine containing products: None Second hand tobacco smoke exposure: No How often do you have a drink containing alcohol: 4 or more times a week How many standard drinks containing alcohol do you have on a typical day: 1 or 2 How often do you have six or more drinks on one occasion: Never AUDIT-C Alcohol total score: 4 Non-prescribed substance use: denies use Little interest or pleasure in doing things: several days Feeling down, depressed, or hopeless: several days service: No Exam Narrative: Exam Narrative: Const: Well-nourished, Well-developed, in mild distress Eyes: PERRL, no conjunctival injection, and symmetrical lids HENT: Atraumatic external nose and ears. Moist mucous membranes. Neck: Symmetric, trachea midline, No thyromegaly. CVS: RRR, No murmurs or gallops. Peripheral pulses 2+ and equal in all extremities RESP: Unlabored respiratory effort. Clear to auscultation bilaterally. GI: Nontender/Nondistended, No rebound or guarding. MSK:Extremities w/o deformity, Normal Active ROM Skin: Warm, Dry. No rashes or lesions. Neuro: Normal Muscle tone, Cranial nerves 2-12 grossly intact, normal zfpr-iq-wtet, normal rxrmci-gg-fojb, normal gait, normal strength 5/5 upper lower extremities bilaterally, normal sensation upper and lower extremities bilaterally, normal rapid alternating movements. No nystagmus, normal test of skew, normal head impulse test Psych: Awake, Alert, & Oriented x3. Appropriate mood and affect. Const: Vital Signs, click to edit/add: Vital Signs - 24 hr 01/25/23 12:24 01/25/23 13:19 01/25/23 13:20 Temperature 97.5 F L Pulse Rate 75 78 Pulse Rate [Pulse Oximeter] 63 Respiratory Rate 14 Blood Pressure 148/90 H Blood Pressure [Ri ght Arm] Blood Pressure [Ri ght Upper Arm] 174/92 H Blood Pressure [or thostatic sitting Right Arm] Blood Pressure [or thostatic standing Right Arm] Pulse Oximetry 100 99 [facility] 01/25/23 13:30 01/25/23 13:31 01/25/23 13:45 Temperature Pulse Rate 76 75 75 Pulse Rate [Pulse Oximeter] Respiratory Rate Blood Pressure 161/85 H Blood Pressure [Ri ght Arm] Blood Pressure [Ri ght Upper Arm] Blood Pressure [or thostatic sitting Right Arm] Blood Pressure [or thostatic standing Right Arm] Pulse Oximetry 97 99 99 Oxygen Delivery Ut thod 01/25/23 13:48 01/25/23 13:51 01/25/23 13:55 Temperature Pulse Rate 78 70 74 Pulse Rate [Pulse Oximeter] Respiratory Rate Blood Pressure 159/96 H 171/91 H 173/91 H Blood Pressure [Ri ght Arm] Blood Pressure [Ri ght Upper Arm] Blood Pressure [or thostatic sitting Right Arm] Blood Pressure [or thostatic standing Right Arm] Pulse Oximetry 99 100 99 Oxygen Delivery Me thod 01/25/23 13:56 01/25/23 13:57 01/25/23 14:00 Temperature Pulse Rate 72 72 Pulse Rate [Pulse Oximeter] Respiratory Rate Blood Pressure Blood Pressure [Ri ght Arm] 159/96 H Blood Pressure [Ri ght Upper Arm] Blood Pressure [or thostatic sitting Right Arm] 171/91 H Blood Pressure [or thostatic standing Right Arm] 173/91 H Pulse Oximetry 100 100 Oxygen Delivery Me thod 01/25/23 14:01 01/25/23 14:15 01/25/23 14:17 Temperature Pulse Rate 78 75 66 Pulse Rate [Pulse Oximeter] Respiratory Rate Blood Pressure 168/89 H 168/79 H Blood Pressure [Ri ght Arm] Blood Pressure [Ri ght Upper Arm] Blood Pressure [or thostatic sitting Right Arm] Blood Pressure [or thostatic standing Right Arm] Pulse Oximetry 99 98 99 Oxygen Delivery Me thod 01/25/23 14:18 01/25/23 14:30 01/25/23 14:45 Temperature Pulse Rate 67 74 74 Pulse Rate [Pulse Oximeter] Respiratory Rate Blood Pressure Blood Pressure [Ri ght Arm] Blood Pressure [Ri ght Upper Arm] Blood Pressure [or thostatic sitting Right Arm] Blood Pressure [or thostatic standing Right Arm] Pulse Oximetry 97 97 96 Oxygen Delivery Me thod 01/25/23 15:00 Temperature Pulse Rate 71 Pulse Rate [Pulse Oximeter] Respiratory Rate Blood Pressure Blood Pressure [Ri ght Arm] Blood Pressure [Ri ght Upper Arm] Blood Pressure [or thostatic sitting Right Arm] Blood Pressure [or thostatic standing Right Arm] Pulse Oximetry 95 Oxygen Delivery Me thod Course Vital Signs Vital signs: Initial Vital Signs Temperature 97.5 F L 01/25/23 12:24 Temperature Source Temporal Artery Scan 01/25/23 12:24 Pulse Rate 63 01/25/23 12:24 Respiratory Rate 14 01/25/23 12:24 Blood Pressure 174/92 H 01/25/23 12:24 Blood Pressure Mean 119 H 01/25/23 12:24 Pulse Oximetry 100 01/25/23 12:24 Oxygen Delivery Method Room Air 01/25/23 12:24 Vital Signs Temperature 97.5 F L 01/25/23 12:24 Pulse Rate 63 01/25/23 12:24 Respiratory Rate 14 01/25/23 12:24 Blood Pressure 174/92 H 01/25/23 12:24 Pulse Oximetry 100 01/25/23 12:24 Oxygen Delivery Method Room Air 01/25/23 12:24 Temperature 97.5 F L 01/25/23 12:24 Pulse Rate 71 01/25/23 15:00 Respiratory Rate 14 01/25/23 12:24 Blood Pressure 168/79 H 01/25/23 14:17 Pulse Oximetry 95 01/25/23 15:00 Oxygen Delivery Method Room Air 01/25/23 12:24 Medical Decision Making MDM Narrative Medical decision making narrative: Patient is a 78-year-old female presenting for lightheadedness and dizziness that started 09:30 this morning. She states she has had issues with vertigo before but this has been the worst. Symptoms source whenever she is up and moving around and somewhat improved when she is sitting in bed but they are not completely gone. She has hypertension is a risk factor for a stroke but otherwi se no other concerning medical conditions. Concerning symptoms appears to be more likely BPPV or orthostatic hypotension causing her symptoms but we will call a code stroke. I spoke to Dr. Navarro who agrees it does not sound like a stroke but is agreeable to the CT and CTAs. Patient's CBC, BMP, troponin all showed no concerning abnormalities. Urinalysis shows no sign of UTI. Head imaging showed no concerning abnormalities. She was given meclizine in the near fluids and after that his symptoms fully resolved. At this time she is feeling much better. With improvement in her symptoms and the negative imaging I do not believe is necessary to do further imaging such as an MRI. She is otherwise doing well we discharged home with meclizine. She is agreeable to this plan. Lab Data Labs: Lab Results 01/25/23 01/25/23 01/25/23 Range/Units 13:05 13:09 13:38 WBC 9.29 (4.50-11.00) K/uL RBC 4.95 (4.00-5.20) m/uL Hgb 14.8 (12.0-16.0) gm/dL Hct 45.2 (33.0-51.0) % MCV 91 (80-100) fL MCH 30 (26-34) pg MCHC 33 (32-36) gm/dL RDW Coeff of Ko 12.4 (11.5-15.5) % Plt Count 202 (140-440) K/uL Neut % (Auto) 80.1 H (42.0-72.0) % Lymph % (Auto) 14.1 L (20-44) % Garland % (Auto) 3.9 (0.0-11.0) % Eos % (Auto) 1.1 (0.0-7.0) % Baso % (Auto) 0.3 (0.0-3.0) % Neut # (Auto) 7.40 H (1.7-7.0) K/uL Lymph # (Auto) 1.30 (0.90-2.90) K/uL Garland # (Auto) 0.40 (0.00-0.90) K/UL Eos # (Auto) 0.10 (0.00-0.50) K/uL Baso # (Auto) 0.03 (0.00-0.30) K/uL Abs Immat Gran (auto) 0.05 (0.00-0.30) K/uL Imm/Tot Granulo (auto) 0.5 % INR 0.96 (0.91-1.10) APTT 27 (23-33) Seconds Sodium 139 (135-149) mmol/L Potassium 4.3 (3.6-5.1) mmol/L Chloride 102 (96-114) mmol/L Carbon Dioxide 22 (20-32) mmol/L Anion Gap 15 (7-15) mEq/L BUN 14 (7-30) mg/dL Creatinine 0.6 (0.5-1.5) mg/dL Estimated Creat Clear 37.74 Estimated GFR 91 ml/min Glucose 130 H (60-115) mg/dL Calcium 10.5 (8.4-10.6) mg/dL Troponin I < 0.01 L (0.01-0.04) ng/mL Urine Color Yellow (Yellow) Urine Appearance Clear (Clear) Urine pH 7.0 (5.0-8.5) Ur Specific Putnam 1.020 (1.000-1.030) Urine Protein Negative (Negative) Urine Glucose (UA) Negative (Negative) Urine Ketones Negative (Negative) Urine Blood Trace-intact A (Negative) Urine Nitrite Negative (Negative) Urine Bilirubin Negative (Negative) Urine Urobilinogen 0.2 (0.2-1.0) Ur Leukocyte Esterase 1+ A (Negative) Urine RBC 0-2 (0-2) Urine WBC 2-5 (0-5) Ur Squamous Epith Cells Few (None-Few) Urine Bacteria None (None) Lab Acknowledgement Test Added Imaging Data CTA head and neck: Radiologist's impression: Preliminary Report: 1. No intracranial proximal large vessel occlusion or significant aneurysm identified. 2. Cervical arterial vasculature is patent without evidence of dissection, significant stenosis, or occlusion. Dictated by Vivian Don MD @ 01/25/2023 1:59:[address] scan - head: Radiologist's impression: INDICATION: Stroke, vertigo. COMPARISON: None. TECHNIQUE: CT of the head without IV contrast. Coronal and sagittal reconstructions. FINDINGS: No intracranial hemorrhage, mass effect, or evidence of acute infarct. No midline shift. No abnormal extra-axial fluid collections. Mild generalized cerebral and cerebellar volume loss with associated ex vacuo dilation of the lateral ventricles. Mild chronic small vessel ischemic disease. Intracranial vascular calcifications. Orbits and extraocular muscles are symmetric. The paranasal sinuses and mastoid air cells are clear. No acute fracture identified. Soft tissues are unremarkable. IMPRESSION: 1. No acute intracranial findings. 2. Findings discussed with Gladys Navarro at 1:11 p.m. on 01/25/2023. Please note that all CT scans at this facility use dose modulation, iterative reconstruction, and/or weight-based dosing when appropriate to reduce radiation dose to as low as reasonably achievable. Dictated by Vivian Don MD @ 01/25/2023 1:12:23 PM Discharge Plan Discharge Clinical Impression: Benign paroxysmal positional vertigo Patient Disposition: Home, Self-Care Condition: Improved Instructions: Benign Paroxysmal Positional Vertigo (DC) Additional Instructions: Follow-up with primary care provider. Return for new worsening symptoms. Take the meclizine as directed Prescriptions: New meclizine 25 mg tablet 25 mg PO QID Qty: 20 0RF No Action trazodone 50 mg tablet 50 mg PO QDAY Qty: 90 3RF pantoprazole 20 mg tablet,delayed release (DR/EC) 20 mg PO QDAY Qty: 90 3RF diazepam 5 mg tablet 5 mg PO TID PRN (Reason: anxiety) Qty: 14 0RF atenolol 25 mg tablet 25 mg PO QDAY Qty: 120 0RF peg 3350-electrolytes [Golytely] 236-22.74-6.74 -5.86 gram recon soln 240 ml PO ONCE Qty: 4000 0RF Rx Instructions: until fecal effluent is clear peg 3350-electrolytes [Golytely] 236-22.74-6.74 -5.86 gram recon soln 4,000 ml PO DIRECTED Qty: 1 0RF Rx Instructions: 1 day prior to scopes, between 4 and 6 p.m., drink 8 oz glass every 15 minutes until half a gallon is gone. 6 hours prior to procedure, drink 8 oz glass every 15 minutes until second half gallon is gone. hydrochlorothiazide 12.5 mg capsule 12.5 mg PO QDAY Qty: 90 0RF Follow Up/Referrals: Abida Martell MD [Primary Care Provider] - Stand Alone Forms: [facility] Info Instructions
[2023-01-25 13:13] LABS: Basophils Absolute Auto 0.03 K/uL (0.00-0.30); Basophils Percent Auto 0.3 % (0.0-3.0); Eosinophils Percent Auto 1.1 % (0.0-7.0); Hematocrit 45.2 % (33.0-51.0); Hemoglobin* 14.8 gm/dL (12.0-16.0); Immature Granulocytes Abs Auto 0.05 K/uL (0.00-0.30); Immature Granulocytes Pct Auto 0.5 %; Lymphocytes Percent Auto 14.1 % (20-44); Mean Corpuscular HGB Conc 33 gm/dL (32-36); Mean Corpuscular Hemoglobin 30 pg (26-34); Mean Corpuscular Volume 91 fL (80-100); Monocytes Percent Auto 3.9 % (0.0-11.0); Neutrophils Percent Auto 80.1 % (42.0-72.0); Platelet Count* 202 K/uL (140-440); RDW Coefficient of Variation % 12.4 % (11.5-15.5); Red Blood Count 4.95 m/uL (4.00-5.20); White Blood Count* 9.29 K/uL (4.50-11.00)
[2023-01-25 13:14] LABS: Slide Review Reflex No
[2023-01-25 13:22] LABS: Appearance Urine Clear (Clear); Bilirubin Urine Negative (Negative); Blood Urine Trace-intact (Negative); Color Urine Yellow (Yellow); Glucose Urine Negative (Negative); Ketones Urine Negative (Negative); Leukocyte Esterase Urine 1+ (Negative); Nitrite Urine Negative (Negative); Protein Urine Negative (Negative); Urobilinogen Urine 0.2 (0.2-1.0)
[2023-01-25 13:27] LABS: Chloride* 102 mmol/L (96-114); Potassium* 4.3 mmol/L (3.6-5.1); Sodium* 139 mmol/L (135-149)
[2023-01-25 13:29] LABS: RBC Urine 0-2 (0-2); Squamous Epithelial Cell Urine Few (None-Few)
[2023-01-25 13:30] LABS: Anion Gap 15 mEq/L (7-15); Blood Urea Nitrogen* 14 mg/dL (7-30); Carbon Dioxide* 22 mmol/L (20-32); Creatinine* 0.6 mg/dL (0.5-1.5); Est. Creatinine Clearance* 37.74; Estimated Glomerular Filt Rate 91 ml/min; Glucose* 130 mg/dL (60-115)
[2023-01-25 13:31] LABS: Calcium* 10.5 mg/dL (8.4-10.6)
[2023-01-25] MEDS: MECLIZINE HCL 25 MG TABLET PO (13:31)
[2023-01-25] MEDS: LACTATED RINGERS 1000 ML 1,000 ML IV (13:31)
--- OUTSIDE RECORDS SUMMARY | 2023-01-25 13:31 | XMS_ITS | Continuity of Care Document ---
Author Name Unknown Organization [facility] Address [address] [place] [address] Phone Care Team Providers Care Type Bar And Segment Assembler Name Role Phone Ravindra Navarro Unavailable Unavailable [...] [facility], [address], [place], [id number], [place] tel:[phone] [facility] No Information Denny Waite. [facility] [place], [address], [place], [place], [id number] , [place]. tel:[phone] Office/Outpat ient Visit,Est, Mod [facility], [address], [place], [id number], [place] tel:[phone] [facility] Spinal stenosis, lumbar region with neurogenic claudication Denny Waite. [facility], [address], [facility] [place], [id number] , [place]. tel:[phone] Referring Provider: Ilia Murillo, [facility] [address], [place], [address]. tel:[phone] Office/Outpat ient Visit,[facility], [address], [facility] [place] [place] [facility] [place], [id number], [place] tel:[phone] [facility] [place] Low back pain Lidia Morillo. [facility], [address], [place], [address], [place]. tel:[phone] Referring Provider: Ilia Murillo, [facility] [address], [facility] [place], [address]. tel:[phone] Family History Family Member Type Diagnosis Age At Onset No Information Payers Payer name Insurance type Covered republican ID Authoriza dona(s) [employer] Anders [id number] Social History Type Description Quantity Date Captured [...]
[2023-01-25 13:35] LABS: INR 0.96 (0.91-1.10); Prothrombin Time 13.4 Seconds
[2023-01-25 13:36] LABS: Partial Thromboplastin Time* 27 Seconds (23-33)
[2023-01-25 14:04] LABS: Troponin I* < 0.01 ng/mL (0.01-0.04)
--- NOTE | 2023-01-25 14:21 | ED.NURSE ---
Patient refusing to wear blood pressure cuff at this time related to it squeezing too tightly.
--- NOTE | 2023-01-25 14:23 | ED.NURSE ---
Patient reports absence of vertigo symptoms at this time.
== END 2023-01-25 15:55 | disposition home or self-care (01) ==
PROVIDERS: Emergency Provider Student in an Organized Health Care Education/Training Program; PCP Internal Medicine
DX: H81.10 Benign paroxysmal vertigo, unspecified ear (principal)
CPT/HCPCS: 36415; 70450; 70496; 70498; 80048; 81001; 84484; 85025; 85610; 85730; 93005; 94761; 96360; 99283; 99284; 99285; A9270; J7120; Q9967

== ENCOUNTER 2023-02-16 12:52 | Outpatient (CLI) | payer MEDICARE, OTHER, SELFPAY ==
--- OUTSIDE RECORDS SUMMARY | 2023-02-16 12:55 | XMS_ITS | Continuity of Care Document ---
Author Name Unknown Organization [facility] Address [address] [place] [address] Phone Care Team Providers Care Studio Data Analyst Name Role Phone Ravindra Navarro Unavailable Unavailable [...] [facility], [address], [place], [id number], [place] tel:[phone] [facility] No Information Denny Waite. [facility] [place], [address], [place], [place], [id number] , [place]. tel:[phone] Office/Outpat ient Visit,Est, Mod [facility], [address], [place], [id number], [place] tel:[phone] [facility] Spinal stenosis, lumbar region with neurogenic claudication Denny Waite. [facility], [address], [facility] [place], [id number] , [place]. tel:[phone] Referring Provider: Ilia Murillo, [facility] [address], [place], [address]. tel:[phone] Office/Outpat ient Visit,[facility], [facility], [address], [facility], [id number], [place] tel:[phone] [facility] [place] Low back pain Lidia Morillo. [facility], [address], [place], [address], [place]. tel:[phone] Referring Provider: Ilia Murillo, [facility] [address], [facility] [place], [address]. tel:[phone] Family History Family Member Type Diagnosis Age At Onset No Information Payers Payer name Insurance type Covered constitution party ID Authoriza dona(s) [employer] Anders [id number] Social History Type Description Quantity Date Captured [...]
--- NOTE | 2023-02-16 13:20 | CRLHL7_ITS ---
For Patients: As a result of the Century Cures Act, medical imaging exams and procedure reports are released immediately into your electronic medical record. You may view this report before your referring provider. If you have questions, please contact your health care provider. BILATERAL SCREENING MAMMOGRAM WITH COMPUTER-AIDED DETECTION AND TOMOSYNTHESIS TECHNIQUE: CC and MLO views were obtained. These mammographic images have been obtained using full-field digital technique. These mammographic images were interpreted with the benefit of computer-aided detection. Breast Tomosynthesis was used in this interpretation. COMPARISON FILM: 02/04/22, 01/24/21, 01/10/20. FINDINGS: There are scattered areas of fibroglandular density IMPRESSION: There is no radiographic evidence for malignancy. ASSESSMENT: BI-RADS Category 1: Negative RECOMMENDATION: Routine screening mammogram in 1 year. A lay language report of this examination will be provided to the patient. Oh Angulo M.D. Diagnostic Radiologist [email or web address] NAVEEN/Dictated by: Oh Angulo MD @ 02/17/2023 12:31:00 PM (Electronically Signed)
== END 2023-02-16 12:53 | disposition home or self-care (01) ==
PROVIDERS: PCP Internal Medicine; Visit Provider Internal Medicine
DX: Z12.31 Encounter for screening mammogram for malignant neoplasm of breast (principal)
CPT/HCPCS: 77063; 77067

== ENCOUNTER 2023-02-18 09:05 | Outpatient (CLI) | payer MEDICARE, OTHER, SELFPAY | END 2023-02-18 09:06 | disposition home or self-care (01) | LOC: NFLDREF 02-22 01:11 | PROVIDERS: PCP Internal Medicine; Referring Provider Internal Medicine; Visit Provider Internal Medicine | DX: E78.5 Hyperlipidemia, unspecified (principal); I10 Essential (primary) hypertension | CPT/HCPCS: 80048; 80061 ==

== ENCOUNTER 2023-03-31 12:56 | Outpatient (CLI) | payer MEDICARE, OTHER, SELFPAY ==
--- OUTSIDE RECORDS SUMMARY | 2023-03-31 13:01 | XMS_ITS | Continuity of Care Document ---
Author Name Unknown Organization [facility] Address [address] [place] [address] Phone Care Team Providers Care Editor Managing Newspaper Name Role Phone Lidia LAWSON, PhD, Ilia Unavailable Unavai lable Allergies, Adverse Reactions, Alerts Substance Reaction Status Criticality Sulfa (Sulfonamide Antibiotics) Active No Information Medications Medication Instructions Dosage Effective Dates (start - stop) Status Comments PANTOPRAZOLE SODIUM (unknown strength) Not Available - Active HYDROCHLOROTHIAZIDE (unknown strength) Not Available - Active GUAIFENESIN (unknown strength) Not Available - Active ATENOLOL (unknown strength) Not Available - Active PROBIOTIC (unknown strength) Not Available - Active Procedures Procedure Date Office/Outpatient Visit,Est, Mod 2022 OFFICE/OUTPATIENT VISIT EST Phone Office/Outpatient Visit,Est, Mod 2022 Office/Outpatient Visit,New, Mod 2021 Advance Directives Directive Yes / No Effective Date File Name No Information Encounters Encounter Description Practice Location Reason(s) For Visit Diagnoses Date Provider Providers Copied on Encounter Office/Outpat ient Visit,Est, Mod [facility], [address], [place], [place], [id number], [place] tel:[phone] [facility] [place] Spinal stenosis, lumbar region with neurogenic claudication Lidia Morillo. [facility] [place], [address], [place], [address], [place]. tel:[phone] Referring Provider: Ilia Murillo, [facility] [place] [address], [place], [address]. tel:[phone] OFFICE/OUTPAT IENT VISIT EST Phone [facility], [address], [place], [id number], [place] tel:[phone] [facility] No Information Denny Waite. [facility], [address], [place], [place], [id number] , [place]. tel:[phone] Referring Provider: Ilia Murillo, [facility] [address], [place], [address]. tel:[phone] Office/Outpat ient Visit,Est, Mod [facility], [address], [place], [id number], [place] tel:[phone] [facility] Spinal stenosis, lumbar region with neurogenic claudication Denny Waite. [facility], [address], [place], [id number] , [place]. tel:[phone] Referring Provider: Ilia Murillo, [facility] [address], [place], [address]. tel:[phone] Office/Outpat ient Visit,New, Mod [facility], [address], [place], [place], [id number], [place] tel:[phone] [facility] Low back pain Lidia Morillo. [facility], [address], [place], [address], [place]. tel:[phone] Referring Provider: Ilia Murillo, [facility] [address], [place], [address]. tel:[phone] Family History Family Member Type Diagnosis Age At Onset No Information Payers Payer name Insurance type Covered democrat ID Authorlauraa dona(s) [employer] Anders [id number] Social History Type Description Quantity Date Captured Comments Alcohol Use Details Unknown Caffeine Use Details Unknown Tobacco Use Status Ex-cigarette smoker 023 Smoking Status Former smoker Non-Smoking Tobacco Use Details : No Details Available : No Details Available Sex Female Vital Signs Date / Time: Height Weight BMI Pulse Rate Blood Pressure Temperature Respiratory Rate Body Surface Area Head Circumference Head Circ. Percentile Wt./Mohamud. Percentile BMI percentile Pulse Ox Inhaled Ox 9:04 AM 65.771 kg (145.00 lbs) Chief Complaint And Reason For Visit No Information Reason For Referral Reason For Referral No Information Plan Of Treatment Date Type Action Status Appointment Kathy Barajas BOOKED Appointment Kathy Barajas BOOKED History Of Present Illness Encounter Date Complaint History Of Prese nt Illness No Information Functional Status Date Functional Assessmen t No Information Instructions Date Instruction Additional Infor mation No Information Assessments Type Assessment Date No Information Patient Care Teams Name Effective Dates (start - stop) Status Members No Information
--- NOTE | 2023-03-31 15:00 | CRLHL7_ITS ---
For Patients: As a result of the Century Cures Act, medical imaging exams and procedure reports are released immediately into your electronic medical record. You may view this report before your referring provider. If you have questions, please contact your health care provider. DXA BONE MINERAL DENSITY STUDY Reason for exam: Specified disorders of bone density. Current height (in): 62.7. Weight (lb): 150.0. Menopause age: 49. Ethnicity: White. 1. Have you had a previous hip or vertebral fracture? No. 2. Have you had any fractures during your adult life which did not result from significant trauma (e.g., auto accident)? No. 3. Did either of your parents have a hip fracture? No. 4. Do you smoke? No. 5. Have you ever taken Glucocorticoids? No. 6. Do you have rheumatoid arthritis? Yes. 7. Do you have secondary osteoporosis? No. 8. Do you drink 3 or more alcoholic drinks per day? No. 9. Are you being treated for osteoporosis? No. 10. Have you ever taken any of the following medications: Actonel, Evista, Fosamax, Miacalcin, Reclast, Boniva, Forteo, HRT (i.e. estrogen/hormone therapy), Protelos, Prolia, Vitamin D, Calcium, other ??? please specify. ANSWER: Yes, Actonel, Fosamax, Vitamin D, Calcium. 11. Do you have any of the following medical conditions: Anorexia or bulimia, asthma or emphysema, end stage renal disease, hyperparathyroidism, any seizure disorders, cancer, inflammatory bowel diseases, hysterectomy, other ??? please specify. ANSWER: Yes, inflammatory bowel disease. 12. What was your maximum height (inches)? 63. 13. Do you perform weight bearing exercise regularly? No. 14. Do you regularly consume dairy products? No. 15. Do you drink caffeinated beverages? Yes. 16. At what age did your period start? 13. 17. Are you premenopausal? No. 18. How many full term pregnancies have you had? 3. 19. Have you ever missed your period for more than 6 months in a row (not including or menopause)? No. TECHNIQUE: Bone mineral density study was performed using the [employer]. FINDINGS: The results of the study expressed as bone mineral density (BMD) are as follows: Neck Left: BMD: 0.581 g/cm2. T-score: -2.4. Z-score: -0.1. Right: BMD: 0.672 g/cm2. T-score: -1.6. Z-score: 0.7. Total Left: BMD: 0.824 g/cm2. T-score: -1.0. Z-score: 1.0. Right: BMD: 0.807 g/cm2. T-score: -1.1. Z-score: 0.9. Radius Left 33%: BMD: 0.492 g/cm2. T-score: -3.4. Z-score: -0.3. IMPRESSION: Osteoporosis. *Comparison exams done prior to 09/2019 were performed on different unit, [employer]. COMPARISON: Compared with scan of 12/20/2019, the bone mineral density has decreased by 4.0 percent at the hip and decreased by 13.0 percent at the forearm. FRAX 10-year Fracture Risk Major Osteoporotic Fracture: 23 percent Hip Fracture: 8.0 percent Reported Risk Factors: [place] () Neck BMD=0.581, BMI=26.8, rheumatoid arthritis Oh Angulo M.D. Diagnostic Radiologist [email or web address] CINDY/sreekanth / be/Dictated by: Oh Angulo MD @ 03/31/2023 2:59:00 PM (Electronically Signed)
== END 2023-03-31 12:57 | disposition home or self-care (01) ==
LOC: RAD 12:57
PROVIDERS: PCP Internal Medicine; Visit Provider Internal Medicine
DX: M85.88 Other specified disorders of bone density and structure, other site (principal); M81.0 Age-related osteoporosis without current pathological fracture; R01.1 Cardiac murmur, unspecified; I35.1 Nonrheumatic aortic (valve) insufficiency; I34.0 Nonrheumatic mitral (valve) insufficiency; I07.1 Rheumatic tricuspid insufficiency; I38 Endocarditis, valve unspecified
CPT/HCPCS: 77080; 93306

== ENCOUNTER 2023-04-27 11:48 | Outpatient (CLI) | payer MEDICARE, OTHER, SELFPAY ==
--- OUTSIDE RECORDS SUMMARY | 2023-04-27 11:52 | XMS_ITS | Continuity of Care Document ---
Author Name Unknown Organization [facility] Address [address] [place] [address] Phone Care Team Providers Care Special Education Secretary Name Role Phone Lidia LAWSON, PhD, Ilia [...] C, [address], [place], [id number], [place] tel:[phone] [facility] No Information Lidia Morillo. [facility], [address], [place], [address], [place]. tel:[phone] Office/Outpat ient Visit,Est, Mod [facility], [address], [place], [id number], [place] tel:[phone] [facility] Spinal stenosis, lumbar region with neurogenic claudication Lidia Morillo. [facility], [address], [place], [address], [place]. [phone] Referring Provider: Ilia Murillo, [facility] [address], [place], [address]. tel:[phone] OFFICE/OUTPAT IENT VISIT EST Phone [facility], [address], [place], [id number], [place] tel:[phone] [facility] No Information Denny Waite. [facility], [address], [place], [place], [id number] , [place]. tel: [phone] Referring Provider: Ilia Murillo, [facility] [address], [place], [address]. tel:[phone] Office/Outpat ient Visit,Est, [facility], [address], [place], [place], [id number], [place] tel:[phone] [facility] Spinal stenosis, lumbar region with neurogenic claudication Denny Waite. [facility], [address], [place], [place], [id number] , [place]. [phone] Referring Provider: Ilia Murillo, [facility] [address], [place], [address]. tel:[phone] Office/Outpat ient Visit,New, Mod [facility], [address], [place], [place], [id number], [place] tel:[phone] [facility] Low back pain Lidia Morillo. [facility], [address], [place], [address], [place]. [phone] Referring Provider: Ilia Murillo, [facility] [address], [place], [address]. tel:[phone] Family History Family Member Type Diagnosis Age At Onset No Information Payers Payer name Insurance type Covered democrat ID Authormelony carcamo(s) [employer] Anders [id number] Social History Type Description Quantity Date Captured Comments Alcohol Use Details Unknown Caffeine Use Details Unknown Tobacco Use Status No Information Smoking Status No Information Sex Female Chief Complaint And Reason For Visit No [...]
== END 2023-04-27 11:49 | disposition home or self-care (01) ==
LOC: NFLDREF 11:50
PROVIDERS: PCP Internal Medicine; Visit Provider Internal Medicine
DX: Z01.818 Encounter for other preprocedural examination (principal)
CPT/HCPCS: 80048

== ENCOUNTER 2023-06-04 14:03 | Outpatient (CLI) | payer MEDICARE, OTHER, SELFPAY | END 2023-06-04 14:04 | disposition home or self-care (01) | LOC: RAD 14:04 | PROVIDERS: PCP Internal Medicine; Visit Provider Internal Medicine Cardiovascular Disease | DX: I36.1 Nonrheumatic tricuspid (valve) insufficiency (principal); I51.7 Cardiomegaly; I34.0 Nonrheumatic mitral (valve) insufficiency; I07.1 Rheumatic tricuspid insufficiency | CPT/HCPCS: 93306 ==

== ENCOUNTER 2024-02-23 09:58 | Outpatient (CLI) | payer MEDICARE, OTHER, SELFPAY ==
--- OUTSIDE RECORDS SUMMARY | 2024-02-23 10:01 | XMS_ITS | Referral Summary ---
Author Organization [facility] Address [address] [place] [id number] Care Team Providers Care Loss Prevention Detective Name Role Phone Unavailable Primary Care Provider Unavailabl e Source Comments Patient records contain information from all sites at [facility]. For routine questions regarding patient records, call [phone] during business hours, M-F 8:00 AM - 5:00 PM Central Time. Record requests for emergency care only can be directed to [phone] at any time.[facility] Encounters Date Type Department Care Team Description 01/07/2024 9:00 AM CDT Diagnostic Division of Pulmonary Medicine in [address] [phone] Jesus Ferreira M.D. Bronchiectasis (HCC) 01/07/2024 10:45 AM CDT - 01/07/2024 1:12 PM CDT Hospital Encounter Department of Laboratory Medicine and Pathology, [facility] in [place], [place] [address] [place] [phone] Jesus Ferreira M.D. Bronchiectasis (HCC) Discharge Disposition: Home or Self Care 01/07/2024 1:13 PM CDT - 01/07/2024 11:59 PM CDT Hospital Encounter Department of Radiology, [facility] in [place], [place] [address] [place] [phone] Jesus Ferreira M.D. Bronchiectasis (HCC) Discharge Disposition: Home or Self Care 12/31/2023 Clinical Communication Division of Pulmonary Medicine in [place], [place] [address] [place] [address] Merlin Renee 12/28/2023 11:02 AM CDT - 12/28/2023 11:34 AM CDT Hospital Encounter Department of Laboratory Medicine and Pathology, [place], [place] [address] [place] [phone] Jesus Ferreira M.D. Bronchiectasis (HCC) Discharge Disposition: Home or Self Care 12/28/2023 11:02 AM CDT - 12/28/2023 11:34 AM CDT Hospital Encounter Department of Laboratory Medicine and Pathology, [place], [place] [address] [place] [phone] Jesus Ferreira M.D. Bronchiectasis (HCC) Discharge Disposition: Home or Self Care 12/28/2023 11:00 AM CDT - 12/28/2023 11:01 AM CDT Hospital Encounter Department of Laboratory Medicine and Pathology, [facility] in [place], [place] [address] [place] [phone] Jesus Ferreira M.D. Bronchiectasis (HCC) Discharge Disposition: Home or Self Care 12/28/2023 11:35 AM CDT - 12/28/2023 11:59 PM CDT Hospital Encounter Department of Laboratory Medicine and Pathology, [facility] in [place], [place] [address] [place] [phone] Jesus Ferreira M.D. Bronchiectasis (HCC) Discharge Disposition: Home or Self Care 12/28/2023 7:01 AM CDT - 12/28/2023 10:59 AM CDT Hospital Encounter Division of Pulmonary Medicine in [place], [place] [address] [place] [phone] Jesus Ferreira M.D. Bronchiectasis (HCC) Discharge Disposition: Home or Self Care 12/28/2023 9:30 AM CDT Comprehensive Visit Division of Pulmonary Medicine in [place], [place] [address] [place] [phone] Jesus Ferreira M.D. Bronchiectasis (HCC) 12/24/2023 11:00 AM CDT Clinical Communication Virtual Review in [place], [place] 200 [place] [address] Previsit Preparation (MICHELLE JM DONE 12/23) 12/24/2023 2:20 PM CDT - 12/24/2023 11:59 PM CDT Hospital Encounter Department of Radiology, [facility], in [place], [place] [address] [place] [phone] Jesus Ferreira M.D. Bronchiectasis (HCC) Discharge Disposition: Home or Self Care 11/29/2023 Clinical Communication Division of Pulmonary Medicine in [place], [place] [address] [place] [phone] Jesus Ferreira M.D. OSM - Outside Materials from Last 3 Months Allergies Active Allergy Reactions Criticality Noted Date Comments Celecoxib Rash 12/24/2023 Lisinopril Other (see comments) 01/23/2013 PN: chest pressure Other reaction(s): PN: chest pressure PN: chest pressure Mercury (Elemental) Other (see comments) 2023 . Sulfa (Sulfonamide Antibiotics) Other (see comments),Rash 11/28/2012 PN: tongue got sore Medications atenoloL (Tenormin) 25 mg tablet Take 25 mg by mouth daily. Active acetaminophen (TylenoL) 500 mg tablet Take 1,000 mg by mouth every 6 (six) hours as needed. 4 Active alendronate (Fosamax) 70 mg tablet Take 70 mg by mouth once a week. Active clobetasoL (Clobex) 0.05 % external spray Apply 1 Application topically as needed. 4 Active diazePAM (Valium) 5 mg tablet Take 1 tablet by mouth 4 (four) times a day. 4 Active folic acid 1 mg tablet Take 1 mg by mouth daily. 4 Active hydroCHLOROthia zide (HydroDiuril) 25 mg tablet Take 25 mg by mouth daily. Active HYDROcodone-gerardo taminophen ([place]) 5-325 mg per tablet Take 1-2 tablets by mouth every 6 (six) hours as needed. 6 Active hyoscyamine (Levsin) 0.125 mg SL tablet Take 125 mcg by mouth every 4 (four) hours as needed. 0 Active methotrexate (TrexalL) 2.5 mg tablet Take 15 mg by mouth once a week. 4 Active multivitamin-mi nerals-lutein (Multivitamin 50 Plus) tablet Take 1 tablet by mouth daily. Active traZODone (DesyreL) 100 mg tablet Take 50-100 mg by mouth daily. Active triamcinolone (Kenalog) 0.1 % cream Apply 1 Application topically as needed. 4 Active albuterol (ProAir HFA) 90 mcg/actuation inhalerIndicati ons:Bronchiecta sis (HCC) Inhale 2 puffs every 4 (four) hours as needed for wheezing or shortness of breath. 8.5 g 5 4 Active sodium chloride (NebuSaL) 3 % nebulizer solutionIndicat ions:Bronchiect asis (HCC) Inhale 4 mL by nebulization 2 (two) times a day as needed for cough. 240 mL 11 4 12/28/19 25 Active Active Problems Problem Noted Date Diagnosed Date Bronchiectasis 12/28/2023 Immunizations Name Administration Dates Next Due Influenza, Unspecified 03/01/2006,03/08/2003, Td (Adult), adsorbed 12/22/2004,09/12/1997 Social History Tobacco Use Types Packs/Day Years Used Date Smoking Tobacco: Former Cigarettes S tarted: 04/26/1958 Smokeless Tobacco: Never Tobacco Cessation:Counseling Given: Not Answered Alcohol Use Standard Drinks/Week Comments Yes 2 (1 standard drink = 0.6 oz pur e alcohol) [facility] Utilities Answer Date Recorded In the past 12 months has [employer], or water [employer] threatened to shut off services in your home? No 12/21/2023 Exercise Vital Sign Answer Date Recorde d On average, how many days pe r week do you engage in moderate to strenuous exercise (like a brisk walk)? 0 days 12/21/2023 On average, how many minutes do you engage in exercise at this level? 0 min 12/21/2023 Hunger Vital Sign Answer Date Recorded Within the past 12 months, y ou worried that your food would run out before you got the money to buy more. Never true 12/21/19 Within the past 12 months, t he food you bought just didn't last and you didn't have money to get more. Never true 12/21/2023 PRAPARE - Transportation Answer Date Re corded In the past 12 months, has l ack of transportation kept you from medical appointments or from getting medications? No 11/25 In the past 12 months, has l ack of transportation kept you from meetings, work, or from getting things needed for daily living? No 12/21/2023 Nutrition Answer Date Recorded On average, how many serving s of fruits and vegetables do you eat per day (serving size is equal to 1 cup or approximately the size of a tennis ball)? 0-2 12/21/2023 Dental Answer Date Recorded Dental: Regular Dentist Yes 12/21/19 Employment Answer Date Recorded Employment status Retired 12/21/2023 Housing Stability Answer Date Recorded What is your living situation today? 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 Gender Identity Female 12/21/2023 3:51 PM CDT Sexual Orientation Straight 12/21/2023 3: 51 PM CDT Last Filed Vital Signs Vital Sign Reading Time Taken Comments Blood Pressure 168/88 12/28/2023 9:25 AM CDT Pulse 72 12/28/2023 9:25 AM CDT Temperature 36.7 ??C (98.1 ??F) 12/28/2023 9:25 AM CD T Respiratory Rate - - Oxygen Saturation 98% 12/28/2023 9:25 AM CDT Inhaled Oxygen Concentration - - Weight 70.7 kg (155 lb 13.8 oz) 12/28/2023 9:25 AM CDT Height 158.8 cm (5' 2.52) 12/28/2023 9:25 AM CD T Body Mass Index 28.04 12/28/2023 9:25 AM CDT Plan of Treatment Not on file Medical Devices Implanted Type Area Electrical Test Engineer Device Identifier Shelf Expiration Date Model / Serial / Lot Hardware E.G. Pins/Screws/Ro ds Hardware e.g. pins/screws/ rods Right: Leg Procedures Procedure Name Priority Date/Time Associated Diagnosis Comments FL ESOPHAGRAM DOUBLE CONTRAST RAD - Routine (most inpatients and all outpatients) 01/07/2024 1:38 PM CDT Bronchiectasis (HCC) SWEAT CHLORIDE Routine 01/07/2024 12:23 PM CDT Bronchiectasis (HCC) EXHALED NITRIC OXIDE Routine 01/07/2024 8:54 AM CDT Bronchiectasis (HCC) IMMUNOGLOBULIN A (IGA), S Routine 12/28/2023 12:21 PM CDT IMMUNOGLOBULIN M (IGM), S Routine 12/28/2023 12:21 PM CDT CYSTIC FIBROSIS (CF) MUTATION PANEL Routine 12/28/2023 12:21 PM CDT Bronchiectasis (HCC) [id number] PROTEOTYPE S/Z BY LC-MS/MS, S Routine 12/28/2023 12:21 PM CDT Bronchiectasis (HCC) IMMUNOGLOBULIN E (IGE), S Routine 12/28/2023 12:21 PM CDT Bronchiectasis (HCC) CBC WITH DIFFERENTIAL, B Routine 12/28/2023 12:21 PM CDT Bronchiectasis (HCC) IGG SUBCLASSES, S Routine 12/28/2023 12:21 PM CDT Bronchiectasis (HCC) PULMONARY FUNCTION TESTS Routine 12/28/2023 7:46 AM CDT Bronchiectasis (HCC) GRAM STAIN Routine 12/28/2023 7:31 AM CDT Bronchiectasis (HCC) BACTERIAL CULTURE, AEROBIC + SUSC, RESP Routine 12/28/2023 7:31 AM CDT Bronchiectasis (HCC) FUNGAL SMEAR Routine 12/28/2023 7:31 AM CDT Bronchiectasis (HCC) FUNGAL CULTURE, ROUTINE Routine 12/28/2023 7:31 AM CDT Bronchiectasis (HCC) CT CHEST WITHOUT IV CONTRAST RAD - Routine (most inpatients and all outpatients) 12/24/2023 2:50 PM CDT Bronchiectasis (HCC) from Last 3 Months Results * FL Esophagram Double Contrast (01/07/2024 1:38 PM CDT) Anatomical Region Laterality Modality Gastro Intestinal, Abdominal RST LOS, Abdominal ARZ LOS, Abdominal FLA LOS Digital Radiography Impressions 01/07/2024 3:18 PM CDT 1. ??Positional gastroesophageal reflux to the midesophagus with good clearance. Narrative 01/07/2024 3:18 PM CDT EXAM: ??FL ESOPHAGRAM DOUBLE CONTRAST CLINICAL INDICATION: 78-year-old female patient with history of GERD. COMPARISON: ??CT chest from 12/24/2023. FINDINGS: ?? Double contrast esophagram was performed. Normal caliber esophagus. No esophageal stricture. Prominent B ring. Normal esophageal peristalsis. Positional gastroesophageal reflux to midesophagus with good clearance was witnessed during the examination. A 13 mm tablet passed normally through the esophagus into the stomach. Procedure Note Lilli Alanis M.D. - 01/07/2024 EXAM: FL ESOPHAGRAM DOUBLE CONTRAST CLINICAL INDICATION: 78-year-old female patient with history of GERD. COMPARISON: CT chest from 12/24/2023. FINDINGS: Double contrast esophagram was performed. Normal caliber esophagus. Noesophageal stricture. Prominent B ring. Normal esophageal peristalsis.Positional gastroesophageal reflux to midesophagus with good clearance waswitnessed during the examination. A 13 mm tablet passed normally through the esophagus into the stomach. IMPRESSION: 1. Positional gastroesophageal reflux to the midesophagus with goodclearance. Jesus Ferreira M.D. IMG FLUOROSCOPY PROCEDURE S Final Result * Sweat Chloride (01/07/2024 12:23 PM CDT) Chloride, Left 24 <=29 mmol/L 01/07/2024 2:29 PM CDT DTL Chloride, Right 24 <=29 mmol/L 01/07/2024 2:29 PM CDT DTL Interpretation Sweat chloride results are less than 30 mmol/L indicating cystic fibrosis is unlikely; clinical correlation is required. 01/07/2024 2:29 PM CDT DTL Comment: ----ADDITIONAL INFORMATION---- Chloridometer Sweat (Forearm, Left) 01/07/2024 12:23 PM CDT 01/07/2024 1:22 PM CDT Narrative [facility] - 01/07/2024 2:29 PM CDT Specimen Information: Specimen ID: [id number] Specimen Type: Sweat Specimen Collection Start Date: 01/07/2024 12:23 PM Specimen Received Date: 01/07/2024 ??1:22 PM Specimen ID: [id number] Specimen Type: Sweat Specimen Collection Start Date: 01/07/2024 ??1:08 PM Specimen Received Date: 01/07/2024 ??1:22 PM Jesus Ferreira M.D. LAB BODY FLUIDS AND STOOL S ORDERABLES Final Result [facility] [address] [place] [address], [facility] DTL [address] [place] [address] * PUL Exhaled Nitric Oxide (01/07/2024 8:54 AM CDT) Exhaled NO Oral 27 ONBASE Parts per billion (ULN) 39 ONBASE ENOComment Patient takes Albuterol and NaCl 3% PRN ONBASE Jesus Ferreira M.D. PFT ORDERABLES Final Res ult ONBASE NA * Cystic Fibrosis, CFTR Gene, Mutation Panel (12/28/2023 12:21 PM CDT) Result Summary NEGATIVE 01/07/2024 11:41 AM CDT DTL Result No pathogenic variants tested by this assay were identified. 01/07/2024 11:41 AM CDT DTL Method Targeted genotyping array (build GRCh37 (hg19)) was performed to test for the presence of select variants within the CFTR gene (GenBank accession number [id number]). Targeted DNA sequence analysis of the CFTR gene is used to clarify results of the initial analysis when appropriate. See www.Reply.io (Test ID CFMP) for additional information about this test, including variants assessed by this assay. 01/07/2024 11:41 AM CDT DTL Specimen WB Whole Blood 01/07/2024 11:41 AM CDT DTL Released By Yenny Triana M.D., Ph.D. 01/07/2024 11:41 AM CDT DTL Interpretation This result indicates a reduced carrier risk for cystic fibrosis (CF). This screening panel includes the most common pathogenic variants in CFTR; however, it does not comprehensively rule out all known disease-causing pathogenic variants in this gene. ??An individual's residual risk for CF carrier status varies by ancestry. ??The table below lists the residual risk of being a carrier based on ancestry. Ancestry ?Prior Risk ?Residual Risk -------- Niuean ? 05/20 ? Ashkenazi Jain ?05/20 ? 481 ? 493 Niuean ? 46 ? Ni[place]an* ? General [place] Population ? *Does not apply to individuals of Korean ancestry Residual risk after negative carrier screen We are unable to provide a revised risk assessment for ancestries other than those listed above as there is insufficient information available about the carrier frequency and variant detection rates in other populations. These calculations are based on the variant detection rates and population carrier frequencies noted in the chart. If the patient has a family history of CF, contact our laboratory for a revised risk assessment. If there is a suspected diagnosis of CF, correlation between other laboratory tests and clinical history is recommended. Additional genetic testing strategies, such as full gene analysis of the CFTR gene (CFTRN / CFTR Gene, Full Gene Analysis), should be considered for identifying pathogenic variants that are not detected by this assay. Contact the [facility] at [phone] for further discussion regarding this option. A genetic consultation may be of benefit. 01/07/2024 11:41 AM CDT DTL Comment: ----ADDITIONAL INFORMATION---- CAUTIONS This assay will not detect all ??known pathogenic variants causing cystic fibrosis (CF) or CFTR-related disorders. ??Therefore, the absence of a detectable variant does not rule out the possibility that an individual is a carrier of or affected with this disease. A negative result does not eliminate the risk of carrier status for any of the included conditions, due to the possibility that the patient carries a variant that is not interrogated with this assay or the rare chance of a false-negative result for a tested variant. For tested variants, the negative predictive value of this screen is greater than 98%. The patient's residual risk to be a carrier after a negative screen is dependent on ethnic background and family history. A positive control was not available for all variants targeted on this panel. For more information regarding availability of a positive control for each variant see Targeted Variants Interrogated by Expanded Carrier Screen Panels in Special Instructions. ??The negative predictive value of these targets is unknown. Rare polymorphisms exist that could lead to false-negative or false-positive results. If results obtained do not match the clinical findings, additional testing should be considered. All detected variants are evaluated according to [place] [employer] recommendations. This assay was designed to specifically target known pathogenic or likely pathogenic variants. ??In rare cases, DNA variants of undetermined significance may be identified. ??The laboratory encourages health care providers to contact the laboratory at any time to learn how the status of a particular variant may have changed over time. Multiple in-silico evaluation tools may have been used to assist in the interpretation of these results. Of note, the sensitivity and specificity of these tools for the determination of pathogenicity is currently unvalidated. Test results should be interpreted in the context of clinical findings, family history, and other laboratory data. Misinterpretation of results may occur if the information provided is inaccurate or incomplete. Bone Marrow transplants from allogenic donors will interfere with testing. Call [facility] for instructions for testing patients who have received a bone marrow transplant. An online research opportunity called Snapchat ([employer]), a project of [employer], is available for the recipient of this genetic test. This patient registry collects deidentified genetic and health information to advance the knowledge of genetic variants. [facility] is a collaborator of [employer]. This may not be applicable for all tests. TEST CLASSIFICATION This test was developed and its performance characteristics determined by [facility] in a manner consistent with CLIA requirements. This test has not been cleared or approved by the U.S. Food and Drug Administration. Blood (Blood, Peripheral Draw) 12/28/2023 12:21 PM CDT 12/28/2023 1:20 PM CDT Jesus Ferreira M.D. LAB GENETIC TESTING Final Result [facility] [address] [place] [address], [facility] DTL [address] [place] [address] * (ABNORMAL) IgG Subclasses (12/28/2023 12:21 PM CDT) Total IgG 926 767 - 1590 mg/dL 12/28/2023 5:16 PM CDT [facility] IgG 1 651 341 - 894 mg/dL 12/28/2023 5:16 PM CDT [facility] IgG 2 124(L) 171 - 632 mg/dL 12/28/2023 5:16 PM CDT [facility] IgG 3 12.6(L) 18.4 - 106.0 mg/dL 12/28/2023 5:16 PM CDT [facility] IgG 4 9.4 2.4 - 121.0 mg/dL 12/28/2023 5:16 PM CDT [facility] Blood (Blood, Venous) 12/28/2023 12:21 PM CDT 12/28/2023 4:23 PM CDT Jesus Ferreira M.D. LAB BLOOD ADD-ON Final Re sult Performing Organization Address [facility]/ZIP Co de Phone Number [facility] [address] [place] [address] [facility] [address] [place] [address] * [id number]-8-[id number] Proteotype S/Z by LC-MS/MS (12/28/2023 12:21 PM CDT) Pathologist [facility] Nrmrj-[id number] n, S 156 100 - 190 mg/dL 12/29/2023 8:45 AM CDT [facility] Comment: ----ADDITIONAL INFORMATION---- Method: Nephelometry Interpretation S Mutation: Negative Z Mutation: Negative Results most consistent with MM phenotype. 12/31/2023 3:22 PM CDT [facility] Comment: ----ADDITIONAL INFORMATION---- This test was developed and its performance characteristics determined by [facility] in a manner consistent with CLIA requirements. This test has not been cleared or approved by the U.S. Food and Drug Administration. Blood (Blood, Venous) 12/28/2023 12:21 PM CDT 12/29/2023 6:40 AM CDT Jesus Ferreira M.D. LAB BLOOD NON ADD-ON Amee l Result Performing Organization Address City/[facility]/ZIP Co de Phone Number [facility] [address] [place] [address] [facility] [address] [place] [address] [facility] [address] [place] [address] [place] [address] * CBC with Differential, Blood (12/28/2023 12:21 PM CDT) [facility] Signature Hemoglobin 14.1 11.6 - 15.0 g/dL 12/28/2023 1:16 PM CDT DTL Hematocrit 42.0 35.5 - 44.9 % 12/28/2023 1:16 PM CDT DTL Erythrocytes 4.45 3.92 - 5.13 x10(12)/L 12/28/2023 1:16 PM CDT DTL MCV 94.4 78.2 - 97.9 fL 12/28/2023 1:16 PM CDT DTL RBC Distrib Width 14.2 12.2 - 16.1 % 12/28/2023 1:16 PM CDT DTL Platelet Count 206 157 - 371 x10(9)/L 12/28/2023 1:16 PM CDT DTL Leukocytes 7.6 3.4 - 9.6 x10(9)/L 12/28/2023 1:16 PM CDT DTL Neutrophils 4.97 1.56 - 6.45 x10(9)/L 12/28/2023 1:16 PM CDT [facility] Lymphocytes 2.21 0.95 - 3.07 x10(9)/L 12/28/2023 1:16 PM CDT DTL Monocytes 0.29 0.26 - 0.81 x10(9)/L 12/28/2023 1:16 PM CDT DTL Eosinophils 0.11 0.03 - 0.48 x10(9)/L 12/28/2023 1:16 PM CDT DTL Basophils 0.04 0.01 - 0.08 x10(9)/L 12/28/2023 1:16 PM CDT DTL Blood (Blood, Venous) 12/28/2023 12:21 PM CDT 12/28/2023 12:55 PM CDT Jesus Ferreira M.D. LAB BLOOD ADD-ON Final Re sult Performing Organization Address [facility]/ZIP Co de Phone Number [facility] [address] [place] [address], [facility] DTL [facility] [address] [place] [address] [facility] [address] [place] [address] * Immunoglobulin E (IgE) (12/28/2023 12:21 PM CDT) Immunoglobulin E (IgE), S 8.6 <=214 kU/L 01/01/2024 11:35 AM CDT [facility] Blood (Blood, Venous) 12/28/2023 12:21 PM CDT 01/01/2024 8:40 AM CDT Jesus Ferreira M.D. LAB BLOOD ADD-ON Final Re sult Performing Organization Address [facility]/ZIP Co de Phone Number [facility] [address] [place] [address] [facility] [address] [place] [address] * Immunoglobulin A (IgA) (12/28/2023 12:21 PM CDT) Immunoglobulin A (IgA), S 147 61 - 356 mg/dL 12/28/2023 5:49 PM CDT [facility] Blood 12/28/2023 12:2 1 PM CDT 12/28/2023 3:58 PM CDT Jesus Ferreira M.D. LAB BLOOD ADD-ON Final Re sult Performing Organization Address [facility]/ZIP Co de Phone Number [facility] [address] [place] [address] [facility] [address] [place] [address] * Immunoglobulin M (IgM) (12/28/2023 12:21 PM CDT) Immunoglobulin M (IgM), S 59 37 - 286 mg/dL 12/28/2023 5:49 PM CDT [facility] Blood 12/28/2023 12:2 1 PM CDT 12/28/2023 3:58 PM CDT us Jesus Ferreira M.D. LAB BLOOD ADD-ON Final Re sult [facility] [address] [place] [address] [facility] [address] [place] [address] * Pulmonary Function Tests (12/28/2023 7:46 AM CDT) PostFVC 2.34 L 12/28/2023 2:29 PM CDT [facility] SU[address] PostFEV1 1.81 L 12/28/2023 2:29 PM CDT [facility] FEV1/FVC POST 77.08 % 12/28/2023 2:29 PM CDT [facility] FEF 25-75 % POST 1.12 L/s 12/28/2023 2:29 PM CDT [facility] PEF POST 7.40 L/s 12/28/2023 2:29 PM CDT [facility] PIF POST 3.23 L/s 12/28/2023 2:29 PM CDT [facility] FEF 50 % FIF 50 POST 64.06 % 12/28/2023 2:29 PM CDT [facility] FET POST 10.49 sec 12/28/2023 2:29 PM CDT [facility] DLCO 15.15 ml/(min*mm Hg) 12/28/2023 2:29 PM CDT [facility] VA 4.21 L 12/28/2023 2:29 PM CDT [facility] SUITE TLC 4.31 L 12/28/2023 2:29 PM CDT [facility] FRCPLETH PROVBASE 2.47 L 12/28/2023 2:29 PM CDT [facility] SUITE RV 1.93 L 12/28/2023 2:29 PM CDT [facility] RV % TLC PRE 44.82 % 12/28/2023 2:29 PM CDT [facility] SUITE FVC 2.37 L 12/28/2023 2:29 PM CDT [facility] FEV1 1.78 L 12/28/2023 2:29 PM CDT [facility] FEV1/FVC 74.82 % 12/28/2023 2:29 PM CDT [facility] [id number]% 1.05 L/s 12/28/2023 2:29 PM CDT [facility] PEF PRE 6.32 L/s 12/28/2023 2:29 PM CDT [facility] PIF PRE 3.26 L/s 12/28/2023 2:29 PM CDT [facility] FEF 50 % FIF 50 PRE 78.05 % 12/28/2023 2:29 PM CDT [facility] FET PRE 10.08 sec 12/28/2023 2:29 PM CDT [facility] SUBSTANCE POST Albuterol 12/28/2023 2:29 PM CDT [facility] 12/28/2023 7:46 AM CDT Impressions [facility] - 12/28/2023 2:29 PM CDT Normal study. There is no immediate bronchodilator response. Narrative Procedure Note Tristin Dawn M.D. - 12/28/2023 IMPRESSION: Normal study. There is no immediate bronchodilator response. Jesus Ferreira M.D. PFT ORDERABLES Final Res ult [facility] NA * Bacterial Culture, Aerobic + Susceptibility, Respiratory (12/28/2023 7:31 AM CDT) Bacterial Culture, Aerobic, Resp Upper respiratory/or al microbiota 12/30/2023 8:27 AM CDT DTL Sputum (Sputum, Induced) 12/28/2023 7:31 AM CDT 12/28/2023 9:27 AM CDT Comment:Specimen Source Site : Sputum Narrative [facility] - 12/30/2023 8:27 AM CDT Fungal specimen plated for culture, volume inadequate for optimal recovery. Jesus Ferreira M.D. LAB MICROBIOLOGY - GENERA L ORDERABLES Final Result Performing Organization Address City/[facility]/ZIP Co de Phone Number [facility] [address] [place] [address], [facility] [address] [place] [address] * Fungal Smear (12/28/2023 7:31 AM CDT) Fungal Smear Negative. 12/28/2023 1:47 PM CDT DTL Sputum (Sputum, Induced) 12/28/2023 7:31 AM CDT 12/28/2023 9:27 AM CDT Comment:Specimen Source Site : Sputum Narrative [facility] - 12/28/2023 1:47 PM CDT Fungal specimen plated for culture, volume inadequate for optimal recovery. Jesus Ferreira M.D. LAB MICROBIOLOGY - GENERA L ORDERABLES Final Result Performing Organization Address [facility] Co de Phone Number [facility] [address] [place] [address], [facility] [address] [place] [address] * Gram Stain (12/28/2023 7:31 AM CDT) Gram Stain Upper respiratory/ora l microbiota White blood cells, Many Epithelial cells, Few 12/28/2023 12:16 PM CDT DTL Sputum (Sputum, Induced) 12/28/2023 7:31 AM CDT 12/28/2023 9:27 AM CDT Comment:Specimen Source Site : Sputum Narrative [facility] - 12/28/2023 12:16 PM CDT Fungal specimen plated for culture, volume inadequate for optimal recovery. Jesus Ferreira M.D. LAB MICROBIOLOGY - GENERA L ORDERABLES Final Result Performing Organization Address City[facility]/ZIP Co de Phone Number [facility] [address] [place] [address], [facility] [address] [place] [address] * (ABNORMAL) Fungal Culture, Routine (12/28/2023 7:31 AM CDT) Fungal Culture, Routine YEAST, NOT Cr. neoformans, NOT Cr. gattii and NOT C. auris Few (A) 02/07/2024 10:30 AM CDT DTL Fungal Culture, Routine ASPERGILLUS FLAVUS COMPLEX Few (A) 02/07/2024 10:30 AM CDT DTL Comment: Susceptibility testing is not indicated for all molds. Not all molds are clinically significant. If the ordering clinician feels that the culture result is clinically significant, infectious disease consultation is required to order mold susceptibility testing. Fungal Culture, Routine FILAMENTOUS FUNGUS Few (A) 02/07/2024 10:30 AM CDT DTL Comment:Not viable for ident ification. Sputum (Sputum, Induced) 12/28/2023 7:31 AM CDT 12/28/2023 9:27 AM CDT Comment:Specimen Source Site : Sputum Narrative [facility] - 02/07/2024 10:30 AM CDT Fungal specimen plated for culture, volume inadequate for optimal recovery. Jesus Ferreira M.D. LAB MICROBIOLOGY - GENERA L ORDERABLES Final Result [facility] [address] [place] [address], [facility] [address] [place] [address] * CT Chest without IV Contrast (12/24/2023 2:50 PM CDT) Anatomical Region Laterality Modality Chest, Thoracic RST LOS, Tho racic ARZ LOS, Thoracic FLA LOS N/A Computed Tomography, Compute d Tomography Impressions 12/24/2023 3:03 PM CDT Extensive bilateral air trapping is identified on expiratory imaging. The appearance is nonspecific but could be due to colitis obliterans or a vasculitis given some peribronchovascular parenchymal opacities. Narrative 12/24/2023 3:03 PM CDT EXAM: CT CHEST WITHOUT IV CONTRAST COMPARISON: 05/28/2022 and 09/25/2020. TECHNIQUE: ??Additional low-dose high-resolution images in expiration were performed. Limited prone high-resolution imaging was also obtained. FINDINGS: On expiratory imaging, there is moderate to severe bilateral geographic mosaic attenuation, compatible with small airways obstruction and resultant air trapping. Bronchiolitis obliterans or severe asthma might be considered, given the extent of these abnormalities and lack of airway wall thickening. Mild cylindrical bronchiolectasis greatest in the right apex, inferior lingula and left lower lobe laterally. At There are regions of ill-defined groundglass opacity in both upper lobes in a somewhat peribronchovascular distribution. These are similar to 05/28/2022 and 09/25/2020, given the differences of technique. No new areas of consolidation. The appearance is nonspecific but might be seen with a vasculitis, previous hypersensitivity/drug reaction or other infectious/inflammatory airway process. No adenopathy in the chest. Regional vascular calcifications including the coronary arteries and aortic valve. Small hiatal hernia. Peripherally calcified 8 mm splenic artery aneurysm. Otherwise the visualized upper abdomen appears negative. Age-related changes in the skeleton, but no aggressive osseous lesions are identified. Procedure Note Victor Hugo Gustafson M.D. - 12/24/2023 EXAM: CT CHEST WITHOUT IV CONTRAST COMPARISON: 05/28/2022 and 09/25/2020. TECHNIQUE: Additional low-dose high-resolution images in expiration wereperformed. Limited prone high-resolution imaging was also obtained. FINDINGS: On expiratory imaging, there is moderate to severe bilateral geographicmosaic attenuation, compatible with small airways obstruction andresultant air trapping. Bronchiolitis obliterans or severe asthma might beconsidered, given the extent of these abnormalities and lack of airway wall thickening. Mild cylindricalbronchiolectasis greatest in the right apex, inferior lingula and leftlower lobe laterally. At There are regions of ill-defined groundglass opacity in both upperlobes in a somewhat peribronchovascular distribution. These are similar to05/28/2022 and 09/25/2020, given the differences of technique. No newareas of consolidation. The appearance is nonspecific but might be seen with a vasculitis, previoushypersensitivity/drug reaction or other infectious/inflammatory airwayprocess. No adenopathy in the chest. Regional vascular calcifications including the coronary arteries andaortic valve. Small hiatal hernia. Peripherally calcified 8 mm splenic artery aneurysm.Otherwise the visualized upper abdomen appears negative. Age-related changes in the skeleton, but no aggressive osseous lesions areidentified. IMPRESSION: Extensive bilateral air trapping is identified on expiratory imaging. Theappearance is nonspecific but could be due to colitis obliterans or avasculitis given some peribronchovascular parenchymal opacities. Jesus CARPIO CT PROCEDURES Final R esult from Last 3 Months Additional Health Concerns Infection Onset Date Last Indicated Protective Environment 12/24/2023 Insurance MEDICARE MEDICA
--- OUTSIDE RECORDS SUMMARY | 2024-02-23 10:01 | XMS_ITS | Clinical Summary ---
Author Organization [facility] Address [address] [place] [address] Care Team Providers Care Supervisor [employer] Name Role Phone Unavailable Primary Care Provider Unavailabl e Source Comments Patient records contain information from all sites at [facility]. For routine questions regarding patient records, call [phone] during business hours, M-F 8:00 AM - 5:00 PM Central Time. Record requests for emergency care only can be directed to [phone] at any time.[facility] Allergies Active Allergy Reactions Criticality Noted Date [...] mg by mouth daily. Active HYDROcodone-gerardo taminophen ([place]) 5-325 mg per tablet Take 1-2 tablets [...] Problem Noted Date Diagnosed Date Bronchiectasis 12/28/2023 Encounters Date Type Department Care Team Description 01/07/2024 1:13 PM CDT - 01/07/2024 11:59 PM CDT Hospital Encounter Department of Radiology, [facility] in [place], [place] [address] [place] [phone] Jesus Ferreira M.D. Bronchiectasis (HCC) Discharge Disposition: Home or Self Care 01/07/2024 10:45 AM CDT - 01/07/2024 1:12 PM CDT Hospital Encounter Department of Laboratory Medicine and Pathology, [facility], in [place], [place] [address] [place] [phone] Jesus Ferreira M.D. Bronchiectasis (HCC) Discharge Disposition: Home or Self Care 01/07/2024 9:00 AM CDT Diagnostic Division of Pulmonary Medicine in [place], [place] [address] [place] [phone] Jesus Ferreira M.D. Bronchiectasis (HCC) 12/31/2023 Clinical Communication Division of Pulmonary Medicine in [place], [place] [address] [place] [phone] Merlin Renee 12/28/2023 11:35 AM CDT - 12/28/2023 11:59 PM CDT Hospital Encounter Department of Laboratory Medicine and Pathology, [place], [place] [address] [place] [phone] Jesus Ferreira M.D. Bronchiectasis (HCC) Discharge Disposition: Home or Self Care 12/28/2023 11:02 AM CDT - 12/28/2023 11:34 AM CDT Hospital Encounter Department of Laboratory Medicine and Pathology, [place], [place] [address] [place] [phone] Jesus Ferreira M.D. Bronchiectasis (HCC) Discharge Disposition: Home or Self Care 12/28/2023 11:02 AM CDT - 12/28/2023 11:34 AM CDT Hospital Encounter Department of Laboratory Medicine and Pathology, [facility] in [place], [place] [address] [place] [phone] Jesus Ferreira M.D. Bronchiectasis (HCC) Discharge Disposition: Home or Self Care 12/28/2023 11:00 AM CDT - 12/28/2023 11:01 AM CDT Hospital Encounter Department of Laboratory Medicine and Pathology, [place], [place] [address] [place] [phone] Jesus Ferreira M.D. Bronchiectasis (HCC) Discharge Disposition: Home or Self Care 12/28/2023 9:30 AM CDT Comprehensive Visit Division of Pulmonary Medicine in [place], [place] [address] [place] [phone] Jesus Ferreira M.D. Bronchiectasis (HCC) 12/28/2023 7:01 AM CDT - 12/28/2023 10:59 AM CDT Hospital Encounter Division of Pulmonary Medicine in [place], [place] [address] [place] [phone] Jesus Ferreira M.D. Bronchiectasis (HCC) Discharge Disposition: Home or Self Care 12/24/2023 2:20 PM CDT - 12/24/2023 11:59 PM CDT Hospital Encounter Department of Radiology, [facility], in [place], [place] [address] [place] [phone] Jesus Ferreira M.D. Bronchiectasis (HCC) Discharge Disposition: Home or Self Care 12/24/2023 11:00 AM CDT Clinical Communication Virtual Review in [place], [place] [address] [place] [address] Previsit Preparation (MICHELLE JM DONE 12/23) 11/29/2023 Clinical Communication Division of Pulmonary Medicine in [place], [place] [address] [place] [phone] Jesus Ferreira M.D. OSM - Outside Materials from Last 3 Months Immunizations Name Administration Dates Next Due Influenza, Unspecified 03/01/2006,03/08/2003, Td (Adult), adsorbed 12/22/2004,09/12/1997 Family History Medical History Relation Name Comments Skin cancer Brother Phan Maria Dementia Father Phan Maria Hypertension Father Phan Maria Skin cancer Father Phan Maria Basil cell Prostate cancer Maternal Grandfather Miguel Sveum Rheum arthritis Mother Tamiko Candace Alcohol abuse Paternal Grandfather Alek Candace Diabetes Paternal Grandmother Kayce Candace Obesity Paternal Grandmother Kayce Candace ADD Son Myron Snyder Obesity Son Myron Snyder Relation Name Status Comments Brother Phan Father Phan Maria Maternal Grandfather Miguel Sveum Mother Tamiko Candace Paternal Grandfather Alek Candace Paternal Grandmother Kayce Candace Son Myron Snyder Social History Tobacco Use Types Packs/Day Years Used Date Smoking Tobacco: Former Cigarettes S tarted: 04/26/1958 Smokeless Tobacco: Never Tobacco Cessation:Counseling Given: Not Answered Alcohol Use Standard Drinks/Week Comments Yes 2 (1 standard drink = 0.6 oz pur e alcohol) [facility] Utilities Answer Date Recorded In the past 12 months has th e electric, gas, oil, or water company threatened to shut off services in your [...] your living situation today? I have a 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 Gender Identity Female 12/21/2023 3:51 PM CDT [...] 12/28/2023 9:25 AM CDT Plan of Treatment Health Maintenance Due Date Last Done Comments RSV vaccine - (32-36 weeks) or 60+ years (1 - 1-dose 75+ series) 01/11/2019 Depression Screening (Annual PHQ-2) 04/26/2023 Fall Risk Screen (Annual) 04/26/2023 COVID-19 Vaccine ( season) 2023 03/07/2021, 07/06/2020, 06/15/2020 Influenza Vaccine (#1) 2024 , 02/04/2022, 01/24/2021, Additional history exists Office Visit for Blood Pressure Check / Re-check 03/28/2024 12/28/2023 Creatinine Level (Kidney Function Test) 07/04/2024 07/05/2023, 05/12/2023, 09/25/2020 Potassium Level 07/04/2024 07/05/2023, 05/12/2023 Sodium Level 07/04/2024 07/05/2023, 05/12/2023 DTaP,Tdap,and Td Vaccines (3 - Td or Tdap) 02/11/2031 02/11/2021, 12/03/2010, 12/22/2004, Additional history exists Pneumococcal vaccine (65+ years) Completed 12/02/2017, 09/03/2014, 08/15/2008 Zoster Vaccines Completed 05/20/2018, 08/12/2017, 04/22/2012 HPV Vaccines Aged Out No longer eligi ble based on patient's age to complete this topic Medical Devices Implanted Type Area Bead Builder Device Identifier Shelf Expiration Date Model / [...] Routine 12/28/2023 12:21 PM CDT Bronchiectasis (HCC) [id number] PROTEOTYPE S/Z BY LC-MS/MS, S Routine 12/28/2023 [...] PM CDT 01/07/2024 1:22 PM CDT Narrative [facility] [place] - 01/07/2024 2:29 PM CDT Specimen Information: Specimen ID: [id number] Specimen Type: Sweat Specimen Collection Start Date: 01/07/2024 12:23 PM Specimen Received Date: 01/07/2024 ??1:22 PM Specimen ID: [id number] Specimen Type: Sweat Specimen Collection Start Date: 01/07/2024 ??1:08 PM Specimen Received Date: 01/07/2024 ??1:22 PM Jesus Ferreira M.D. LAB BODY FLUIDS AND STOOL S ORDERABLES Final Result [facility] [place] [address] [place] [address], [facility] DTL [address] [place] [address] * PUL Exhaled Nitric Oxide (01/07/2024 8:54 [...] of the initial analysis when appropriate. See [email or web address] (Test ID CFMP) for additional information about [...] ancestry. Ancestry ?Prior Risk ?Residual Risk -------- Slovenian ? 05/20 ? Ashkenazi Episcopal ?05/20 ? 481 ? 493 Slovenian ? 1/46 ? Slovenian* ? 255 General [place] Population ? 244 *Does not apply to individuals of Upper Sorbian ancestry Residual risk after negative carrier screen [...] not detected by this assay. Contact the [facility] at [phone] for further discussion regarding this option. A [...] All detected variants are evaluated according to [place] [employer] recommendations. [...] allogenic donors will interfere with testing. Call [facility] for instructions for testing patients who have received a bone marrow transplant. An online research opportunity called [employer] ([employer]), a project of [email or web address], is available for the recipient of this genetic test. This patient registry collects deidentified genetic and health information to advance the knowledge of genetic variants. [facility] is a collaborator of [email or web address]. This may not be applicable for all tests. TEST CLASSIFICATION This test was developed and its performance characteristics determined by [facility] in a manner consistent with CLIA requirements. This test has not been cleared or approved by the U.S. Food and Drug Administration. Blood (Blood, Peripheral Draw) 12/28/2023 12:21 PM CDT 12/28/2023 1:20 PM CDT Jesus Ferreira M.D. LAB GENETIC TESTING Final Result [facility] [address] [place] [address], [facility] DT [address] [place] [address] * (ABNORMAL) IgG Subclasses (12/28/2023 12:21 PM CDT) Total IgG 926 767 - 1590 mg/dL 12/28/2023 5:16 PM CDT [facility] IgG 1 651 341 - 894 mg/dL 12/28/2023 5:16 PM CDT [facility] IgG 2 124(L) 171 - 632 mg/dL 12/28/2023 5:16 PM CDT [facility] IgG 3 12.6(L) 18.4 - 106.0 mg/dL 12/28/2023 5:16 PM CDT [facility] IgG 4 9.4 2.4 - 121.0 mg/dL 12/28/2023 5:16 PM CDT [facility] Blood (Blood, Venous) 12/28/2023 12:21 PM CDT 12/28/2023 4:23 PM CDT Jesus Ferreira M.D. LAB BLOOD ADD-ON Final Re sult Performing Organization Address [facility]/ZIP Co de Phone Number [facility] [address] [place] [address] [facility] [address] [place] [address] * Bhqee-4-Vatztulbphk Proteotype S/Z by LC-MS/MS (12/28/2023 12:21 PM CDT) Pathologist [facility] Cshwx-1-Jcrrgrcwjb n, S 156 100 - 190 mg/dL 12/29/2023 8:45 AM CDT [facility] Comment: ----ADDITIONAL INFORMATION---- Method: Nephelometry Interpretation S Mutation: Negative Z Mutation: Negative Results most consistent with MM phenotype. 12/31/2023 3:22 PM CDT [facility] Comment: ----ADDITIONAL INFORMATION---- This test was developed and its performance characteristics determined by [facility] in a manner consistent with CLIA requirements. This test has not been cleared or approved by the U.S. Food and Drug Administration. Blood (Blood, Venous) 12/28/2023 12:21 PM CDT 12/29/2023 6:40 AM CDT Jesus Ferreira M.D. LAB BLOOD NON ADD-ON Amee l Result Performing Organization Address [facility]/ZIP Co de Phone Number [facility] [address] [place] [address] [facility] [address] [place] [address] [facility] [address] [place] [address] [place] [address] * CBC with Differential, Blood (12/28/2023 12:21 PM CDT) Hemoglobin 14.1 11.6 - 15.0 g/dL 12/28/2023 [...] 12:21 PM CDT 12/28/2023 12:55 PM CDT us Jesus Ferreira M.D. LAB BLOOD ADD-ON Final Re sult [facility] [place] [address] [place] [address], [place] DTL [facility] [address] [place] [address] [facility] [address] [place] [address] * Immunoglobulin E (IgE) (12/28/2023 12:21 PM CDT) Immunoglobulin E (IgE), S 8.6 <=214 kU/L 01/01/2024 11:35 AM CDT [facility] Blood (Blood, Venous) 12/28/2023 12:21 PM CDT 01/01/2024 8:40 AM CDT Jesus Ferreira M.D. LAB BLOOD ADD-ON Final Re sult Performing Organization Address City/[facility]/ZIP Co de Phone Number [facility] [address] [place] [address] [facility] [address] [place] [address] * Immunoglobulin A (IgA) (12/28/2023 12:21 PM CDT) Immunoglobulin A (IgA), S 147 61 - 356 mg/dL 12/28/2023 5:49 PM CDT [facility] Blood 12/28/2023 12:2 1 PM CDT 12/28/2023 3:58 PM CDT Jesus Ferreira M.D. LAB BLOOD ADD-ON Final Re sult Performing Organization Address City/[facility]/ZIP Co de Phone Number [facility] [address] [place] [address] [facility] [address] [place] [address] * Immunoglobulin M (IgM) (12/28/2023 12:21 PM CDT) Immunoglobulin M (IgM), S 59 37 - 286 mg/dL 12/28/2023 5:49 PM CDT [facility] Blood 12/28/2023 12:2 1 PM CDT 12/28/2023 3:58 PM CDT us Jesus Ferreira M.D. LAB BLOOD ADD-ON Final Re sult [facility] [address] [place] [address] [facility] [address] [place] [address] * Pulmonary Function Tests (12/28/2023 7:46 AM CDT) PostFVC 2.34 L 12/28/2023 2:29 PM CDT [facility] PostFEV1 1.81 L 12/28/2023 2:29 PM CDT [facility] FEV1/FVC POST 77.08 % 12/28/2023 2:29 PM CDT [facility] FEF 25-75 % POST 1.12 L/s 12/28/2023 2:29 PM CDT [facility] PEF POST 7.40 L/s 12/28/2023 2:29 PM CDT [facility] PIF POST 3.23 L/s 12/28/2023 2:29 PM CDT [facility] FEF 50 % FIF 50 POST 64.06 % 12/28/2023 2:29 PM CDT [facility] FET POST 10.49 sec 12/28/2023 2:29 PM CDT [facility] DLCO 15.15 ml/(min*mm Hg) 12/28/2023 2:29 PM CDT [facility] VA 4.21 L 12/28/2023 2:29 PM CDT [facility] SUITE TLC 4.31 L 12/28/2023 2:29 PM CDT [facility] FRCPLETH PROVBASE 2.47 L 12/28/2023 2:29 PM CDT [facility] RV 1.93 L 12/28/2023 2:29 PM CDT [facility] RV % TLC PRE 44.82 % 12/28/2023 2:29 PM CDT [facility] FVC 2.37 L 12/28/2023 2:29 PM CDT [facility] FEV1 1.78 L 12/28/2023 2:29 PM CDT [facility] FEV1/FVC 74.82 % 12/28/2023 2:29 PM CDT [facility] OQG69-82% 1.05 L/s 12/28/2023 2:29 PM CDT [facility] PEF PRE 6.32 L/s 12/28/2023 2:29 PM CDT [facility] PIF PRE 3.26 L/s 12/28/2023 2:29 PM CDT [facility] FEF 50 % FIF 50 PRE 78.05 % 12/28/2023 2:29 PM CDT [facility] FET PRE 10.08 sec 12/28/2023 2:29 PM CDT [facility] SUBSTANCE POST Albuterol 12/28/2023 2:29 PM CDT [facility] 12/28/2023 7:46 AM CDT Impressions [facility] - 12/28/2023 2:29 PM CDT Normal study. There is no immediate bronchodilator response. Narrative Procedure Note Tristin Dawn M.D. - 12/28/2023 IMPRESSION: Normal study. There is no immediate bronchodilator response. Jesus Ferreira M.D. PFT ORDERABLES Final Res ult [facility] NA * Bacterial Culture, Aerobic + Susceptibility, Respiratory (12/28/2023 7:31 AM CDT) Bacterial Culture, Aerobic, Resp Upper respiratory/or al microbiota 12/30/2023 8:27 AM CDT DTL Sputum (Sputum, Induced) 12/28/2023 7:31 AM CDT 12/28/2023 9:27 AM CDT Comment:Specimen Source Site : Sputum Narrative [facility] [place] - 12/30/2023 8:27 AM CDT Fungal specimen plated for culture, volume inadequate for optimal recovery. Jesus Ferreira M.D. LAB MICROBIOLOGY - GENERA L ORDERABLES Final Result Performing Organization Address City/[facility]/ZIP Co de Phone Number [facility] [place] [address] [place] [address], [facility] [address] [place] [address] * Fungal Smear (12/28/2023 7:31 AM CDT) Fungal Smear Negative. 12/28/2023 1:47 PM CDT DT Sputum (Sputum, Induced) 12/28/2023 7:31 AM CDT 12/28/2023 9:27 AM CDT Comment:Specimen Source Site : Sputum Narrative [facility] [place] - 12/28/2023 1:47 PM CDT Fungal specimen plated for culture, volume inadequate for optimal recovery. Jesus Ferreira M.D. LAB MICROBIOLOGY - GENERA L ORDERABLES Final Result Performing Organization Address [facility] Co de Phone Number [facility] [place] [address] [place] [address], [facility] [address] [place] [address] * Gram Stain (12/28/2023 7:31 AM CDT) Gram Stain Upper respiratory/ora l microbiota White blood cells, Many Epithelial cells, Few 12/28/2023 12:16 PM CDT DT Sputum (Sputum, Induced) 12/28/2023 7:31 AM CDT 12/28/2023 9:27 AM CDT Comment:Specimen Source Site : Sputum Narrative [facility] [place] - 12/28/2023 12:16 PM CDT Fungal specimen plated for culture, volume inadequate for optimal recovery. Jesus Ferreira M.D. LAB MICROBIOLOGY - GENERA L ORDERABLES Final Result Performing Organization Address City/[facility]/ZIP Co de Phone Number [facility] [place] [address] [place], [place] [address] [address] [place] [address] * (ABNORMAL) Fungal Culture, Routine (12/28/2023 7:31 [...] CDT Comment:Specimen Source Site : Sputum Narrative [facility] [place] - 02/07/2024 10:30 AM CDT Fungal specimen plated for culture, volume inadequate for optimal recovery. Jesus Ferreira M.D. LAB MICROBIOLOGY - GENERA L ORDERABLES Final Result [facility] [place] [address] [place] [address], [facility] [address] [place] [address] * CT Chest without IV Contrast (12/24/2023 [...] avasculitis given some peribronchovascular parenchymal opacities. Jesus Ferreira M.D. IMNisha CT PROCEDURES Final R esult from Last 3 Months Additional Health Concerns Infection Onset Date Last Indicated Protective Environment 12/24/2023 Insurance MEDICARE MEDICA
--- OUTSIDE RECORDS SUMMARY | 2024-02-23 10:01 | XMS_ITS ---
Author Organization [facility] Address [address] [place] [address] Care Team Providers Care Credit Collections Clerk Name Role Phone Unavailable Unavailable Unavailable Surgery Details Not on file Complications Check Surgery Details section. Procedure Estimated Blood Loss Check Surgery Details section. Procedure Findings Check Surgery Details section. Procedure Specimens Taken Check Surgery Details section.
--- OUTSIDE RECORDS SUMMARY | 2024-02-23 10:01 | XMS_ITS | Encounter Summary ---
Author Organization [facility] Address [address] [place] [address] Care Team Providers Care Hybrid Car Mechanic Name Role Phone Unavailable Primary Care Provider Unavailabl e Encounter Details Date Type Department Care Team (Latest Contact Info) Description 01/07/2024 10:45 AM CDT - 01/07/2024 1:12 PM CDT Hospital Encounter Department of Laboratory Medicine and Pathology, [facility] in [place], [place] [address] [place] [phone] Jesus Ferreira M.D. [address] [place] [phone] Bronchiectasis (HCC) Discharge Disposition: Home or Self Care Social History Tobacco Use Types Packs/Day Years Used Date Smoking Tobacco: Former Cigarettes S tarted: 04/26/1958 Smokeless Tobacco: Never Alcohol Use Standard Drinks/Week Comments Yes 2 (1 standard drink = 0.6 oz pur e alcohol) [facility] Utilities Answer Date Recorded In the past 12 months has [employer], gas, oil, or water company threatened to [...] your living situation today? 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 05/12/2023 albuterol (ProAir HFA) 90 mcg/actuation inhalerIndicatio ns:Bronchiectasi s (HCC) Inhale 2 puffs every 4 (four) hours as needed for wheezing or shortness of breath. 8.5 g 5 12/28/2023 alendronate (Fosamax) 70 mg tablet Take 70 mg by mouth once a week. atenoloL (Tenormin) 25 mg tablet Take 25 mg by mouth daily. clobetasoL (Clobex) 0.05 % external spray Apply 1 Application topically as needed. 11/17/2023 diazePAM (Valium) 5 mg tablet Take 1 tablet by mouth 4 (four) times a day. 10/30/2013 folic acid 1 mg tablet Take 1 mg by mouth daily. 12/21/2023 hydroCHLOROthiaz cydney (HydroDiuril) 25 mg tablet Take 25 mg by mouth daily. HYDROcodone-acet aminophen ([place]) 5-325 mg per tablet Take 1-2 tablets by mouth every 6 (six) hours as needed. 08/15/2015 hyoscyamine (Levsin) 0.125 mg SL tablet Take 125 mcg by mouth every 4 (four) hours as needed. 03/09/2020 methotrexate (TrexalL) 2.5 mg tablet Take 15 mg by mouth once a week. 12/21/2023 multivitamin-min erals-lutein (Multivitamin 50 Plus) tablet Take 1 tablet by mouth daily. sodium chloride (NebuSaL) 3 % nebulizer solutionIndicati ons:Bronchiectas is (HCC) Inhale 4 mL by nebulization 2 (two) times a day as needed for cough. 240 mL 11 12/28/2023 traZODone (DesyreL) 100 mg tablet Take 50-100 mg by mouth daily. triamcinolone (Kenalog) 0.1 % cream Apply 1 Application topically as needed. 10/06/2023 documented as of this encounter Plan of Treatment Not on file documented as of this encounter Procedures Procedure Name Priority Date/Time Associated Diagnosis Comments SWEAT CHLORIDE Routine 01/07/2024 12:23 PM CDT Bronchiectasis (HCC) documented in this encounter Results * Sweat Chloride (01/07/2024 12:23 PM CDT) [...] PM CDT 01/07/2024 1:22 PM CDT Narrative [facility] - 01/07/2024 2:29 PM CDT Specimen Information: Specimen ID: [id number] Specimen Type: Sweat Specimen Collection Start Date: 01/07/2024 12:23 PM Specimen Received Date: 01/07/2024 ??1:22 PM Specimen ID: [id number] Specimen Type: Sweat Specimen Collection Start Date: 01/07/2024 ??1:08 PM Specimen Received Date: 01/07/2024 ??1:22 PM Jesus Ferreira M.D. LAB BODY FLUIDS AND STOOL S ORDERABLES Final Result [facility] [address] [place] [address], [facility] DT [address] [place] [address] documented in this encounter Visit Diagnoses Diagnosis Bronchiectasis (HCC) documented in this encounter Additional Health Concerns Infection Onset Date Last Indicated Resolved Time Protective Environment 12/24/2023 12/24/2023 documented as of this encounter
--- OUTSIDE RECORDS SUMMARY | 2024-02-23 10:01 | XMS_ITS | Encounter Summary ---
Author Organization [facility] Address [address] [place] [address] Care Team Providers Care Remote Sensing Specialist Name Role Phone Unavailable Primary Care Provider Unavailabl e Encounter Details Date Type Department Care Team (Latest Contact Info) Description 12/28/2023 11:02 AM CDT - 12/28/2023 11:34 AM CDT Hospital Encounter Department of Laboratory Medicine and Pathology, [facility] in [place], [place] [address] [place] [phone] Jesus Ferreira M.D. [address] [place] [phone] Bronchiectasis (HCC) Discharge Disposition: Home or Self Care Social History Tobacco Use Types Packs/Day Years Used Date Smoking Tobacco: Former Cigarettes S tarted: 04/26/1958 Smokeless Tobacco: Never Alcohol Use Standard Drinks/Week Comments Yes 2 (1 standard drink = 0.6 oz pur e alcohol) [facility] Utilities Answer Date Recorded In the past 12 months has [employer], gas, oil, or water company threatened to [...] your living situation today? 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 HYDROcodone-acet aminophen ([place]) 5-325 mg per tablet Take 1-2 tablets [...] as of this encounter Plan of Treatment Scheduled Orders Name Type Priority Associated Diagnoses Orde r Schedule Acid Fast Smear for Mycobacterium Microbiology Routine Bronchiectasis (HCC) Once for 1 Occurrences starting 12/28/2023 until 12/28/2023 Mycobacterial Culture Microbiology Routine Bronchiectasis (HCC) Once for 1 Occurrences starting 12/28/2023 until 12/28/2023 documented as of this encounter Visit Diagnoses Diagnosis Bronchiectasis (HCC) documented in this encounter Additional Health Concerns Infection Onset Date Last Indicated Resolved Time Protective Environment 12/24/2023 12/24/2023 documented as of this encounter
--- OUTSIDE RECORDS SUMMARY | 2024-02-23 10:01 | XMS_ITS | Encounter Summary ---
Author Organization [facility] Address [address] [place] [address] Care Team Providers Care Ada Accommodation Consultant Name Role Phone Unavailable Primary Care Provider Unavailabl e Reason for Visit * Outpatient (Routine) - Closed Specialty Diagnoses / Procedures Referred By Nesha t Referred To Contact Diagnoses Bronchiectasis (HCC) Procedures FL Esophagram Double Contrast FL Esophagram Single Contrast Jesus Ferreira M.D. 200 [place] [address] Phone: tel: fax: [facility] Referral ID Status Reason Start Date Expiration Date Visits Re quested Visits Authorized [id number] Closed 12/28/2023 12/27/2024 1 1 Encounter Details Date Type Department Care Team (Latest Contact Info) Description 01/07/2024 1:13 PM CDT - 01/07/2024 11:59 PM CDT Hospital Encounter Department of Radiology, [facility], in [place], [place] [address] [place] [phone] Jesus Ferreira M.D. [address] [place] [phone] Bronchiectasis (HCC) Discharge Disposition: Home or Self Care Social History Tobacco Use Types Packs/Day Years Used Date Smoking Tobacco: Former Cigarettes S tarted: 04/26/1958 Smokeless Tobacco: Never Alcohol Use Standard Drinks/Week Comments Yes 2 (1 standard drink = 0.6 oz pur e alcohol) [facility] Utilities Answer Date Recorded In the [...] your living situation today? 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 HYDROcodone-acet aminophen ([place]) 5-325 mg per tablet Take 1-2 tablets [...] outpatients) 01/07/2024 1:38 PM CDT Bronchiectasis (HCC) documented in this encounter Results * FL Esophagram Double Contrast (01/07/2024 [...] the midesophagus with goodclearance. Jesus Ferreira M.D. IMNisha FLUOROSCOPY PROCEDURE S Final Result documented in this encounter Visit Diagnoses Diagnosis Bronchiectasis (HCC) documented in this encounter Administered Medications Inactive Administered Medications - up to 3 most recent administrations Medication Order MAR Action Action Date Dose Rate Site barium 60 % (w/v) suspension 175 mL (Liquid E-Z-Paque) 175 mL, oral, Once in imaging, contrast, Starting on Wed01/07/24 at 1342, For 1 dose Given 01/07/2024 1:42 PM CDT 175 mL barium 700 mg tablet 700 mg (E-Z-Disk) 700 mg, oral, Once in imaging, contrast, Starting on Wed01/07/24 at 1342, For 1 dose Given 01/07/2024 1:42 PM CDT 700 mg barium 98 % oral powder for suspension 135 mL (E-Z-HD) 135 mL, oral, Once in imaging, contrast, Starting on Wed01/07/24 at 1342, For 1 dose Given 01/07/2024 1:42 PM CDT 135 mL sodium bicarbonate-citric acid-simethicone effervescent packet 1 packet (E-Z-Gas II) 1 packet, oral, Once, On Wed01/07/24 at 1400, For 1 dose Given 01/07/2024 1:42 PM CDT 1 packet documented in this encounter Additional Health Concerns Infection Onset Date Last Indicated Resolved Time Protective Environment 12/24/2023 12/24/2023 documented as of this encounter
--- OUTSIDE RECORDS SUMMARY | 2024-02-23 10:01 | XMS_ITS | Encounter Summary ---
Author Organization [facility] Address [address] [place] [address] Care Team Providers Care Research Instructor Name Role Phone Unavailable Primary Care Provider Unavailabl e Encounter Details Date Type Department Care Team (Late st Contact Info) Description 01/07/2024 9:00 AM CDT Diagnostic Division of Pulmonary Medicine in [place], [place] [address] [place] [phone] Jesus Ferreira M.D. [address] [place] [phone] Bronchiectasis (HCC) Social History Tobacco Use Types Packs/Day Years Used Date Smoking Tobacco: Former Cigarettes S tarted: 04/26/1958 Smokeless Tobacco: Never Alcohol Use Standard Drinks/Week Comments Yes 2 (1 standard drink = 0.6 oz pur e alcohol) [facility] Utilities Answer Date Recorded In the past 12 months has e [employer], gas, oil, or water [employer] threatened to shut off services in your [...] money to buy more. Never true 12/21/19 24 Within the past 12 months, t he [...] your living situation today? 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 PFT ORDERABLES Final Res ult ONBASE NA documented in this encounter Visit Diagnoses Diagnosis Bronchiectasis (HCC) documented in this encounter Additional Health Concerns Infection Onset Date Last Indicated Resolved Time Protective Environment 12/24/2023 12/24/2023 documented as of this encounter
--- OUTSIDE RECORDS SUMMARY | 2024-02-23 10:01 | XMS_ITS | Encounter Summary ---
Author Organization [facility] Address [address] [place] [address] Care Team Providers Care Nc Machinist Name Role Phone Unavailable Primary Care Provider Unavailabl e Encounter Details Date Type Department Care Team (Late st Contact Info) Description 12/31/2023 Clinical Communication Division of Pulmonary Medicine in [place], [place] [address] [place] [phone] Merlin Renee Social History Tobacco Use Types Packs/Day Years Used Date Smoking Tobacco: Former Cigarettes S tarted: 04/26/1958 Smokeless Tobacco: Never Alcohol Use Standard Drinks/Week Comments Yes 2 (1 standard drink = 0.6 oz pur e alcohol) [facility] Utilities Answer Date Recorded In the past 12 months has [employer], gas, oil, or water [employer] threatened to shut off services in your [...] your living situation today? 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
--- OUTSIDE RECORDS SUMMARY | 2024-02-23 10:02 | XMS_ITS | Encounter Summary ---
Author Organization [facility] Address [address] [place] [address] Care Team Providers Care Entry Level Programmer Name Role Phone Unavailable Primary Care Provider Unavailabl e Reason for Visit * Reason Onset Date Comments Previsit Preparation 12/24/2023 MICHELLE GAGE DONE 12/23 Encounter Details Date Type Department Care Team (Latest Contact Info) Description 12/24/2023 11:00 AM CDT Clinical Communication Virtual Review in [place], [place] 200 [place] [phone] Previsit Preparation (MICHELLE GAGE DONE 12/23) Social History Tobacco Use Types Packs/Day Years Used Date Smoking Tobacco: Former Smokeless Tobacco: Never Tobacco Cessation:Counseling Given: Not Answered [facility] Utilities Answer Date Recorded In the past 12 months has [facility], gas, oil, or water company threatened [...] your living situation today? I have a [facility] place to live 12/21/2023 Comments Unknown Sex and Gender Information Value Date Recorded Sex Assigned at Female 12/21/2023 3:51 PM CDT Legal Sex Female 11:13 PM MANAGER LOGISTIC Gender Identity Female 12/21/2023 3:51 PM CDT Sexual Orientation Straight 12/21/2023 3: 51 PM CDT documented as of this encounter Plan of Treatment Not on file documented as of this encounter Visit Diagnoses Not on filedocumented in this encounter
--- OUTSIDE RECORDS SUMMARY | 2024-02-23 10:02 | XMS_ITS | Encounter Summary ---
Author Organization [facility] Address [address] [place] [address] Care Team Providers Care Audiometrist Name Role Phone Unavailable Primary Care Provider Unavailabl e Encounter Details Date Type Department Care Team (Latest Contact Info) Description 12/28/2023 11:35 AM CDT - 12/28/2023 11:59 PM CDT Hospital Encounter Department of Laboratory Medicine and Pathology, [facility] [place], [place] [address] [place] [phone] Jesus Ferreira M.D. [address] [place] [phone] Bronchiectasis (HCC) Discharge Disposition: Home or Self Care Social History Tobacco Use Types Packs/Day Years Used Date Smoking Tobacco: Former Cigarettes S tarted: 04/26/1958 Smokeless Tobacco: Never Alcohol Use Standard Drinks/Week Comments Yes 2 (1 standard drink = 0.6 oz pur e alcohol) [facility] Utilities Answer Date Recorded In the past 12 months has [employer], gas, oil, or water company threatened to [...] your living situation today? 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 HYDROcodone-acet aminophen ([place]) 5-325 mg per tablet Take 1-2 tablets [...] Procedure Name Priority Date/Time Associated Diagnosis Comments CYSTIC FIBROSIS (CF) MUTATION PANEL Routine 12/28/2023 12:21 PM CDT Bronchiectasis (HCC) IGG SUBCLASSES, S Routine 12/28/2023 12: 21 PM CDT Bronchiectasis (HCC) [id number] PROTEOTYPE S/Z BY LC-MS/MS, S Routine 12/28/2023 12:21 PM CDT Bronchiectasis (HCC) CBC WITH DIFFERENTIAL, B Routine 12/28/2023 12:21 PM CDT Bronchiectasis (HCC) IMMUNOGLOBULIN E (IGE), S Routine 12/28/2023 12:21 PM CDT Bronchiectasis (HCC) IMMUNOGLOBULIN A (IGA), S Routine 12/28/2023 12:21 PM CDT IMMUNOGLOBULIN M (IGM), S Routine 12/28/2023 12:21 PM CDT documented in this encounter Results * Immunoglobulin A (IgA) (12/28/2023 12:21 PM CDT) Immunoglobulin A (IgA), S 147 61 - 356 mg/dL 12/28/2023 5:49 PM CDT [facility] Blood 12/28/2023 12:2 1 PM CDT 12/28/2023 3:58 PM CDT Jesus Ferreira M.D. LAB BLOOD ADD-ON Final Re sult Performing Organization Address [facility]/ZIP Co de Phone Number [facility] [address] [place] [address] [facility] [address] [place] [address] * Immunoglobulin M (IgM) (12/28/2023 12:21 PM CDT) Pathologist [facility] Immunoglobulin M (IgM), S 59 37 - 286 mg/dL 12/28/2023 5:49 PM CDT [facility] Blood 12/28/2023 12:2 1 PM CDT 12/28/2023 3:58 PM CDT Jesus Ferreira M.D. LAB BLOOD ADD-ON Final Re sult [facility] [address] [place] [address] [facility] [address] [place] [address] * Cystic Fibrosis, CFTR Gene, Mutation Panel [...] of the initial analysis when appropriate. See www.[employer] (Test ID CFMP) for additional information about [...] ancestry. Ancestry ?Prior Risk ?Residual Risk -------- Spanish ? 05/20 ? Ashkenazi Judaism ?05/20 ? 481 ?65 ? Spanish ? 46 ? Spanish* ? General [place] Population ? *Does not apply to individuals of [place] ancestry Residual risk after negative carrier screen [...] not detected by this assay. Contact the Genomics Laboratory at [phone] for further discussion regarding this option. A [...] All detected variants are evaluated according to [employer] recommendations. [...] allogenic donors will interfere with testing. Call [facility] for instructions for testing patients who have received a bone marrow transplant. An online research opportunity called [employer] ([employer]), a project of [employer], is available for the recipient of this genetic test. This patient registry collects deidentified genetic and health information to advance the knowledge of genetic variants. [facility] is a collaborator of [employer]. This may not be applicable for all tests. TEST CLASSIFICATION This test was developed and its performance characteristics determined by [facility] in a manner consistent with CLIA requirements. This test has not been cleared or approved by the U.S. Food and Drug Administration. Blood (Blood, Peripheral Draw) 12/28/2023 12:21 PM CDT 12/28/2023 1:20 PM CDT Jesus Ferreira M.D. LAB GENETIC TESTING Final Result [facility] [address] [place] [address], [facility] 200 [facility] 200 [place] [address] * [id number]-4-Egqhbguwcht Proteotype S/Z by LC-MS/MS (12/28/2023 12:21 PM CDT) [facility] Mpsca-7-Yescfbdmqy n, S 156 100 - 190 mg/dL 12/29/2023 8:45 AM CDT [facility] Comment: ----ADDITIONAL INFORMATION---- Method: Nephelometry Interpretation S Mutation: Negative Z Mutation: Negative Results most consistent with MM phenotype. 12/31/2023 3:22 PM CDT [facility] Comment: ----ADDITIONAL INFORMATION---- This test was developed and its performance characteristics determined by [facility] in a manner consistent with CLIA requirements. This test has not been cleared or approved by the U.S. Food and Drug Administration. Blood (Blood, Venous) 12/28/2023 12:21 PM CDT 12/29/2023 6:40 AM CDT Jesus Ferreira M.D. LAB BLOOD NON ADD-ON Amee l Result [facility] [address] [place] [address] [facility] [address] [place] [phone] [place], [place] [address] [place] [address] [place] [address] * Immunoglobulin E (IgE) (12/28/2023 12:21 PM CDT) [facility] Immunoglobulin E (IgE), S 8.6 <=214 kU/L 01/01/2024 11:35 AM CDT [facility] Blood (Blood, Venous) 12/28/2023 12:21 PM CDT 01/01/2024 8:40 AM CDT Jesus Ferreira M.D. LAB BLOOD ADD-ON Final Re sult Performing Organization Address City/[facility]/ZIP Co de Phone Number [facility] [address] [place] [address] [facility] [address] [place] [address] * CBC with Differential, Blood (12/28/2023 12:21 PM CDT) [facility] Hemoglobin 14.1 11.6 - 15.0 g/dL 12/28/2023 [...] M.D. LAB BLOOD ADD-ON Final Re sult [facility] [address] [place] [address], [facility] DTL [facility] [address] [place] [address] DHPM [facility] [address] [place] [address] * (ABNORMAL) IgG Subclasses (12/28/2023 12:21 PM CDT) Total IgG 926 767 - 1590 mg/dL 12/28/2023 5:16 PM CDT [facility] IgG 1 651 341 - 894 mg/dL 12/28/2023 5:16 PM CDT [facility] IgG 2 124(L) 171 - 632 mg/dL 12/28/2023 5:16 PM CDT [facility] IgG 3 12.6(L) 18.4 - 106.0 mg/dL 12/28/2023 5:16 PM CDT [facility] IgG 4 9.4 2.4 - 121.0 mg/dL 12/28/2023 5:16 PM CDT [facility] Blood (Blood, Venous) 12/28/2023 12:21 PM CDT 12/28/2023 4:23 PM CDT Jesus Ferreira M.D. LAB BLOOD ADD-ON Final Re sult [facility] [address] [place] [address] [facility] [address] [place] [address] documented in this encounter Visit Diagnoses Diagnosis Bronchiectasis (HCC) documented in this encounter Additional Health Concerns Infection Onset Date Last Indicated Resolved Time Protective Environment 12/24/2023 12/24/2023 documented as of this encounter
--- OUTSIDE RECORDS SUMMARY | 2024-02-23 10:02 | XMS_ITS | Encounter Summary ---
Author Organization [facility] Address [address] [place] [address] Care Team Providers Care Training Executive Name Role Phone Unavailable Primary Care Provider Unavailabl e Reason for Visit * Reason Onset Date Comments [facility] - Outside Materials 11/29/2023 Encounter Details Date Type Department Care Team (Latest Contact Info) Description 11/29/2023 Clinical Communication Division of Pulmonary Medicine in [place], [place] [address] [place] [address] Jesus Ferreira M.D. 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 - 11/29/2023 11:33 AM CDT Pulmonary Note: Outside Materials [facility] Requested Records: Chest CT and CXR from [id number]. To be delivered by: Electronic Push Additional Notes: Fax request sent to facility. documented in this encounter Plan of Treatment Not on file documented as of this encounter Visit Diagnoses Not on filedocumented in this encounter
--- OUTSIDE RECORDS SUMMARY | 2024-02-23 10:02 | XMS_ITS | Encounter Summary ---
Author Organization [facility] Address [address] [place] [address] Care Team Providers Care Crisis Intervention Specialist Name Role Phone Unavailable Primary Care Provider Unavailabl e Encounter Details Date Type Department Care Team (Latest Contact Info) Description 12/28/2023 7:01 AM CDT - 12/28/2023 10:59 AM CDT Hospital Encounter Division of Pulmonary Medicine in [place], [place] [address] [place] [phone] Jesus Ferreira M.D. [address] [place] [phone] Bronchiectasis (HCC) Discharge Disposition: Home or Self Care Social History Tobacco Use Types Packs/Day Years Used Date Smoking Tobacco: Former Cigarettes S tarted: 04/26/1958 Smokeless Tobacco: Never Alcohol Use Standard Drinks/Week Comments Yes 2 (1 standard drink = 0.6 oz pur e alcohol) [facility] Utilities Answer Date Recorded In the past 12 months has e [employer], gas, oil, or water company threatened to [...] your living situation today? 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 HYDROcodone-acet aminophen ([place]) 5-325 mg per tablet Take 1-2 [...] needed. 10/06/2023 documented as of this encounter Progress Notes * Michael Schultz R.R.T., L.R.T. - 12/28/2023 7:18 AM CDT Mrs. Kathy Barajas arrived in [facility] for out-patient sputum induction. Sample sent to lab. Aerosol generating procedure done wearing N95 mask. Electronically signed by: Michael Schultz R.R.T., L.R.T. 12/28/23 7:18 AM CDT documented in this encounter Plan of Treatment Not on file documented as of this encounter Procedures Procedure Name Priority Date/Time Associated Diagnosis Comments BACTERIAL CULTURE, AEROBIC + SUSC, RESP Routine 12/28/2023 7:31 AM CDT Bronchiectasis (HCC) FUNGAL SMEAR Routine 12/28/2023 7:31 AM CDT Bronchiectasis (HCC) GRAM STAIN Routine 12/28/2023 7:31 AM CDT Bronchiectasis (HCC) FUNGAL CULTURE, ROUTINE Routine 12/28/2023 7:31 AM CDT Bronchiectasis (HCC) documented in this encounter Results * Gram Stain (12/28/2023 7:31 AM CDT) Gram Stain Upper respiratory/ora l microbiota White blood cells, Many Epithelial cells, Few 12/28/2023 12:16 PM CDT DTL Sputum (Sputum, Induced) 12/28/2023 7:31 AM CDT 12/28/2023 9:27 AM CDT Comment:Specimen Source Site : Sputum Narrative [facility] - 12/28/2023 12:16 PM CDT Fungal specimen plated for culture, volume inadequate for optimal recovery. us Jesus Ferreira M.D. LAB MICROBIOLOGY - GENERA L ORDERABLES Final Result [facility] 200 [place] [address], [facility] 200 [place] [address] * Bacterial Culture, Aerobic + Susceptibility, Respiratory (12/28/2023 7:31 AM CDT) Bacterial Culture, Aerobic, Resp Upper respiratory/or al microbiota 12/30/2023 8:27 AM CDT DTL Sputum (Sputum, Induced) 12/28/2023 7:31 AM CDT 12/28/2023 9:27 AM CDT Comment:Specimen Source Site : Sputum Narrative [facility] - 12/30/2023 8:27 AM CDT Fungal specimen plated for culture, volume inadequate for optimal recovery. us Jesus R Aksamit M.D. LAB MICROBIOLOGY - GENERA L ORDERABLES Final Result Performing Organization Address City/[facility]/ZIP Co de Phone Number [facility] [address] 200 [place] [address] * Fungal Smear (12/28/2023 7:31 AM CDT) Fungal Smear Negative. 12/28/2023 1:47 PM CDT DTL Sputum (Sputum, Induced) 12/28/2023 7:31 AM CDT 12/28/2023 9:27 AM CDT Comment:Specimen Source Site : Sputum Narrative [facility] - 12/28/2023 1:47 PM CDT Fungal specimen plated for culture, volume inadequate for optimal recovery. Jesus Ferreira M.D. LAB MICROBIOLOGY - GENERA L ORDERABLES Final Result Performing Organization Address [facility] Co de Phone Number [facility] 200 [place], [place] [id number] [place] [address] 200 [place] [address] * (ABNORMAL) Fungal Culture, Routine (12/28/2023 7:31 AM CDT) Pathologist [facility] Fungal Culture, Routine YEAST, NOT Cr. neoformans, [...] CDT Comment:Specimen Source Site : Sputum Narrative [facility] - 02/07/2024 10:30 AM CDT Fungal specimen plated for culture, volume inadequate for optimal recovery. Jesus Ferreira M.D. LAB MICROBIOLOGY - GENERA L ORDERABLES Final Result [facility] [address] [place] [address], [facility] DTL [facility] [address] [place] [address] documented in this encounter Visit Diagnoses Diagnosis Bronchiectasis (HCC) documented in this encounter Additional Health Concerns Infection Onset Date Last Indicated Resolved Time Protective Environment 12/24/2023 12/24/2023 documented as of this encounter
--- OUTSIDE RECORDS SUMMARY | 2024-02-23 10:02 | XMS_ITS | Encounter Summary ---
Author Organization [facility] Address [address] [place] [address] Care Team Providers Care Creative Arts Music Therapist Name Role Phone Unavailable Primary Care Provider Unavailabl e Encounter Details Date Type Department Care Team (Latest Contact Info) Description 12/28/2023 11:00 AM CDT - 12/28/2023 11:01 AM CDT Hospital Encounter Department of Laboratory Medicine and Pathology, [facility] in [place], [place] [address] [place] [phone] Jesus Ferreira M.D. [address] [place] [phone] Bronchiectasis (HCC) Discharge Disposition: Home or Self Care Social History Tobacco Use Types Packs/Day Years Used Date Smoking Tobacco: Former Cigarettes S tarted: 04/26/1958 Smokeless Tobacco: Never Alcohol Use Standard Drinks/Week Comments Yes 2 (1 standard drink = 0.6 oz pur e alcohol) [facility] Utilities Answer Date Recorded In the past 12 months has [employer], gas, oil, or water company threatened to [...] your living situation today? 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 HYDROcodone-acet aminophen ([place]) 5-325 mg per tablet Take 1-2 tablets [...] Type Priority Associated Diagnoses Orde r Schedule Mycobacterial Culture Microbiology Routine Bronchiectasis (HCC) Once for 1 Occurrences starting 12/28/2023 until 12/28/2023 Acid Fast Smear for Mycobacterium Microbiology Routine Bronchiectasis (HCC) Once for 1 Occurrences starting 12/28/2023 until 12/28/2023 documented as of this encounter Visit Diagnoses Diagnosis Bronchiectasis (HCC) documented in this encounter Additional Health Concerns Infection Onset Date Last Indicated Resolved Time Protective Environment 12/24/2023 12/24/2023 documented as of this encounter
--- OUTSIDE RECORDS SUMMARY | 2024-02-23 10:02 | XMS_ITS | Clinical Summary ---
[facility] Address [address] [place] [address] Care Team Providers Care Six Pack Packer Name Role Phone Abida Martell MD Primary Care Provider [phone]- [phone] Source Comments You are receiving this document as you are listed as the primary care provider,follow-up provider, or the patient has been referred to you for consultation.This is in compliance with the Medicare and[facility] EHR Incentive Program,which states Providers who transition their patient to another setting of careor provider of care or refers their patient to another provider of care shouldprovide summary care record for each transition of care or referral. AIM Allergies Active Allergy Reactions Criticality Noted Date Comments Celecoxib Rash 01/23/2013 Lisinopril 01/23/2013 PN: chest pressure Sulfa Antibiotics 11/28/2012 PN: tongue got sore Medications Medication Sig Dispensed Refills Start Date End Date Status ATENolol (AKA TENORMIN) 25 MG tablet Take by mouth daily (every 24 hours). 01/15/2012 Active hydrochlorothiazide 12.5 MG capsule Indications: PN: 08/11/2012 Act obdulia HYDROcodone-acetamino phen ([place]) 5-325 MG tablet Take 1-2 tablets by mouth every 6 hours as needed for Pain. 40 tablet 0 08/15/2015 Active Active Problems No known active problems Social History Tobacco Use Types Packs/Day Years Used Date Smoking Tobacco: Former Cigarettes Q uit: 08/13/2013 Smokeless Tobacco: Never Alcohol Use Standard Drinks/Week Comments Yes 7 (1 standard drink = 0.6 oz pur e alcohol) Sex and Gender Information Value Date Recorded Sex Assigned at Not on file Gender Identity Not on file Sexual Orientation Not on file Last Filed Vital Signs [...] Health Maintenance Due Date Last Done Comments Medicare Annual Wellness Visit 1944 Dexa 01/11/2009 RSV (1 - 1-dose 75+ series) 01/11/2019 COVID-19 Vaccine ( season) 2023 03/07/2021, 07/06/2020, 06/15/2020 Influenza (#1) 2023 01/24/2021, 11/25, 02/01/2019, Additional history exists DTaP/Tdap/Td (3 - Tdap) 02/11/2031 02/12/20, 12/03/2010, 12/22/2004, Additional history exists Pneumococcal 65+ Yrs Completed 12/02/2017, 09/03/2014, 08/15/2008 Zoster/Shingles Completed 05/20/2018, 12/2017, 04/22/2012 HepA Aged Out No longer eligi ble based on patient's age to complete this topic HepB Aged Out No longer eligi ble based on patient's age to complete this topic Hib Aged Out No longer eligi ble based on patient's age to complete this topic IPV (Polio) Aged Out No longer eligi ble based on patient's age to complete this topic RSV Aged Out No longer eligi ble based on patient's age to complete this topic MCV4 Aged Out No longer eligi ble based on patient's age to complete this topic Care Teams Six Pack Packer Relationship Specialty Start Date End Date Abida Martell MD [address] [place] [address] PCP - General 11/28/12
--- OUTSIDE RECORDS SUMMARY | 2024-02-23 10:02 | XMS_ITS | Encounter Summary ---
Author Organization [facility] Address [address] [place] [address] Care Team Providers Care Manager Group Name Role Phone Unavailable Primary Care Provider Unavailabl e Reason for Referral * MRI/CAT/PET Scan (Routine) - Closed Specialty Diagnoses / Procedures Referred By Noriac t Referred To Contact Radiology Diagnoses Bronchiectasis (HCC) Procedures CT Chest without IV Contrast Jesus Ferreira M.D. 200 [place] [address] Phone: tel: fax: [facility] Referral ID Status Reason Start Date Expiration Date Visits Re quested Visits Authorized [id number] Closed 09/29/2023 09/28/2024 1 1 Reason for Visit * MRI/CAT/PET Scan (Routine) - Closed Specialty Diagnoses / Procedures Referred By Noriac fannie Referred To Contact Radiology Diagnoses Bronchiectasis (HCC) Procedures CT Chest without IV Contrast Jesus Ferreira M.D. 200 [place] [address] Phone: tel: fax: [facility] Referral ID Status Reason Start Date Expiration Date Visits Re quested Visits Authorized [id number] Closed 09/29/2023 09/28/2024 1 1 Encounter Details Date Type Department Care Team (Latest Contact Info) Description 12/24/2023 2:20 PM CDT - 12/24/2023 11:59 PM CDT Hospital Encounter Department of Radiology, [facility], in [place], [place] 200 [place] [address] Jesus Ferreira M.D. 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 05/12/2023 alendronate (Fosamax) 70 mg tablet Take 70 [...] 25 mg by mouth daily. HYDROcodone-acet aminophen ([place]) 5-325 mg per tablet Take 1-2 tablets by mouth every 6 (six) hours as needed. 08/15/2015 hyoscyamine (Levsin) 0.125 mg SL tablet Take 125 mcg by mouth every 4 (four) hours as needed. 03/09/2020 methotrexate (TrexalL) 2.5 mg tablet Take 15 mg by mouth once a week. 12/21/2023 multivitamin-min erals-lutein (Multivitamin 50 Plus) tablet Take 1 tablet by mouth daily. traZODone (DesyreL) 100 mg tablet Take 50-100 mg by mouth daily. triamcinolone (Kenalog) 0.1 % cream Apply 1 Application topically as needed. 10/06/2023 documented as of this encounter Plan of Treatment Not on file documented as of this encounter Procedures Procedure Name Priority Date/Time Associated Diagnosis Comments CT CHEST WITHOUT IV CONTRAST RAD - Routine (most inpatients and all outpatients) 12/24/2023 2:50 PM CDT Bronchiectasis (HCC) documented in this encounter Results * CT Chest without IV Contrast (12/24/2023 [...] M.D. IMNisha CT PROCEDURES Final R esult documented in this encounter Visit Diagnoses Diagnosis Bronchiectasis (HCC) documented in this encounter Additional Health Concerns Infection Onset Date Last Indicated Resolved Time Protective Environment 12/24/2023 12/24/2023 documented as of this encounter
--- OUTSIDE RECORDS SUMMARY | 2024-02-23 10:02 | XMS_ITS | Clinical Summary ---
Author Organization [facility] Address [place], [place] [address] Care Team Providers Care Rechecker Name Role Phone Abida Martell MD Primary Care Provider [phone]- [phone] Allergies Active Allergy Reactions Criticality Noted Date Comments Celecoxib Rash 01/23/2013 Other reaction(s): Rash Lisinopril Other - Describe In Comment Field 01/23/2013 PN: chest pressure Other reaction(s): PN: chest pressure Sulfa (Sulfonamide Antibiotics) Rash 07/21/2016 Other reaction(s): Rash, Rash Medications Medication Sig Dispensed Refills Start Date End Date Status hydroCHLOROthiazide (HCTZ) 25 mg tablet Take 25 mg by mouth once daily. Takes at bedtime 0 07/21/2016 Active atenolol (TENORMIN) 25 mg tablet Take 25 mg by mouth once daily. Takes at bedtime 0 07/21/2016 Active hyoscyamine sublingual (LEVSIN SL) 0.125 mg subl DISSOLVE ONE TABLET UNDER THE TONGUE EVERY 8 HOURS NEEDED 03/09/2020 Active guaiFENesin (Mucinex) 600 mg Extended-Release tablet Take 2 Tablets by mouth once daily. 02/12/2021 Active alendronate (FOSAMAX) 70 mg tablet Take 70 mg by mouth once a week in the morning. 04/02/2023 Active betamethasone dipropionate 0.05% (DIPROSONE LOTION 0.05%) lotion Apply topically to affected area(s). 09/11/2022 Active buPROPion (WELLBUTRIN SR) 150 mg Sustained-Release tablet Take 150 mg by mouth every morning. 04/27/2023 Active pantoprazole (PROTONIX) 20 mg tablet Take 20 mg by mouth once daily before a meal. Active traZODone (DESYREL) 100 mg tablet Take 50-100 mg by mouth at bedtime. 02/23/2023 Active acetaminophen (TYLENOL EXTRA STRGTH) 500 mg tabletIndications:Sp inal stenosis, lumbar region, with neurogenic claudication Take 1,000 mg by mouth every 6 hours if needed for Pain or Headache. Max acetaminophen dose: 4000mg in 24 hrs. 05/12/2023 Active multivitamins-minera ls-lutein (Multivitamin 50 Plus) tab tablet Take 1 Tablet by mouth once daily. Active Active Problems Problem Noted Date Diagnosed Date Spinal stenosis, lumbar flako on, with neurogenic claudication 05/11/2023 Irritable bowel syndrome with diarrhea Hyperlipidemia 05/11/2023 GERD (gastroesophageal reflux disease) 4 Insomnia 05/11/2023 Psoriatic arthritis 05/11/2023 Psoriasis 05/11/2023 Vertigo 05/11/2023 S/P lumbar decompression - laminectomy: L2-4 JOSE RAUL (generalized anxiety disorder) 05/11/2023 Panic attack 05/11/2023 Mitral valve insufficiency 04/09/2023 HTN (hypertension) 04/09/2023 Nonrheumatic tricuspid valve regurgitation, mode rate 04/09/2023 Diverticular disease of colon 08/18/2006 Social History Tobacco Use Types Packs/Day Years Used Date Smoking Tobacco: Former Cigarettes 0.5 15 Smokeless Tobacco: Never Tobacco Cessation:Counseling Given: Not Answered Comments:I started around 15 years old quit at about 34 years old Alcohol Use Standard Drinks/Week Comments Not Currently 0 (1 standard drink = 0.6 oz pur e alcohol) 5-10ounces- rarely Social Connections Answer Date Recorded Frequency of Communication with Friends and Fami ly Not on file 04/26/2021 Financial Resource Strain Answer Date R ecorded Difficulty of Paying Living Expenses Not on file 04/26/2021 Difficulty of Paying Living Expenses Not on file 04/26/2021 Sex and Gender Information Value Date Recorded Sex Assigned at Female 01/14/2023 12:52 PM CDT Gender Identity Female 01/14/2023 12:52 PM CDT Sexual Orientation Straight 01/14/2023 12 :52 PM CDT Obstetrics History Last Filed Vital Signs Vital Sign Reading Time Taken Comments Blood Pressure 146/74 07/05/2023 4:08 PM CDT Pulse 59 07/05/2023 4:08 PM CDT Temperature 36.7 ??C (98 ??F) 07/05/2023 4:08 PM CDT Respiratory Rate 18 07/05/2023 4:08 PM CDT Oxygen Saturation 98% 07/05/2023 4:08 PM CDT Inhaled Oxygen Concentration - - Weight 68.9 kg (151 lb 12.8 oz) 024 11:00 AM CDT Height 160 cm (5' 3) 07/05/2023 11:00 AM CDT Body Mass Index 26.89 07/05/2023 11:00 AM CDT Plan of Treatment Health Maintenance Due Date Last Done Comments Pneumococcal series for age 65+ (1 of 2 - PCV) 01/11/1950 Tdap 01/11/1955 Depression screening for age 12+ 1956 Tetanus booster 1964 Zoster (shingles) series for age 50+ (1 of 2) 01/11/1994 DEXA/DXA scan for age 65+ 01/11/2009 Medicare Wellness for age 65+ 01/11/2009 RSV vaccine for adults or pr egnancy (1 - 1-dose 75+ series) 01/11/2019 BMI (ht and wt on same day) for age 18+ 09/25/2021 09/25/2020 COVID-19 vaccine series (2023- season) 2023 03/07/2021, 07/06/2020, 06/15/2020 Influenza for age 65+ 12/26/2023 Advance Directives Documents on File Type Date Recorded Patient Maintenance Foreman Expl anation Healthcare Directive 05/06/2023 024 * Full Code (Latest Code Status on File) Date Activated Date Inactivated Comments 07/05/2023 12:07 PM 07/05/2023 6:19 PM Question Answer Comments Code Status Discussion: Reviewed Preferences * Full Code Date Activated Date Inactivated Comments 05/12/2023 8:14 AM 05/12/2023 3:47 PM Question Answer Comments Code Status Discussion: Reviewed Preferences * Full Code Date Activated Date Inactivated Comments 05/11/2023 5:56 PM 05/12/2023 8:14 AM Question Answer Comments Code Status Discussion: Unable to Assess Preferences, Provider to review later Care Teams Rechecker Relationship Specialty Start Date End Date Abida Martell MD [address] [place] [id number] PCP - General Internal Medicine 12/29/12
--- OUTSIDE RECORDS SUMMARY | 2024-02-23 10:02 | XMS_ITS | Encounter Summary ---
Author Organization [facility] Address [address] [place] [address] Care Team Providers Care Sugar Refinery Supervisor Name Role Phone Abida Martell MD Primary Care Provider [phone]- [phone] Encounter Details Date Type Department Care Team (Late st Contact Info) Description 08/15/2015 Orders Only [facility] [address] [place] [address] Alonso Gutierrez, DPM [address] [place] [address] Social History Tobacco Use Types Packs/Day Years Used Date Smoking Tobacco: Never Assessed Sex and Gender Information Value Date Recorded Sex Assigned at Not on file Gender Identity Not on file Sexual Orientation Not on file documented as of this encounter Plan of Treatment Not on file documented as of this encounter Visit Diagnoses Not on filedocumented in this encounter Care Teams Sugar Refinery Supervisor Relationship Specialty Start Date End Date Abida Martell MD [address] [place] [address] PCP - General 11/28/12 documented as of this encounter
--- OUTSIDE RECORDS SUMMARY | 2024-02-23 10:02 | XMS_ITS | Encounter Summary ---
Author Organization [facility] Address [address] [place] [address] Care Team Providers Care Board Of [employer] Secretary Name Role Phone Unavailable Primary Care Provider Unavailabl e Reason for Referral * Outpatient (Routine) - Authorized Specialty Diagnoses / Procedures Referred By Contac t Referred To Contact Pulmonary Medicine Diagnoses Bronchiectasis (HCC) Jesus Ferreira M.D. [address] [place] [address] Phone: tel: fax: [facility] Referral ID Status Reason Start Date Expiration Date V isits Requested Visits Authorized [id number] Authorized 12/28/2023 06/28/2025 1 1 Scheduling Instructions Return visit after all tests * Outpatient (Routine) - Authorized Specialty Diagnoses / Procedures Referred By Contac t Referred To Contact Diagnoses Bronchiectasis (HCC) Procedures DX Chest AP or PA and Lateral 2 Views Jesus Ferreira M.D. [address] [place] [address] Phone: tel: fax: [facility] Referral ID Status Reason Start Date Expiration Date V isits Requested Visits Authorized [id number] Authorized 12/28/2023 12/27/2024 1 1 * Outpatient (Routine) - Authorized Specialty Diagnoses / Procedures Referred By Nesha greco Referred To Contact Pulmonary Medicine Diagnoses Bronchiectasis (HCC) Jesus Ferreira M.D. [address] [place] [address] Phone: tel: fax: [facility] Referral ID Status Reason Start Date Expiration Date V isits Requested Visits Authorized [id number] Authorized 12/28/2023 06/28/2025 1 1 Reason for Visit * Outpatient (Routine) - Closed Specialty Diagnoses / Procedures Referred By Nesha greco Referred To Contact Pulmonary Medicine Diagnoses Bronchiectasis (HCC) Abida Martell M.D. [address] [place] [address] Phone: tel: fax: [facility] Referral ID Status Reason Start Date Expiration Date Visits Re quested Visits Authorized [id number] Closed 08/10/2023 02/08/2025 1 1 Encounter Details Date Type Department Care Team (Latest Contact Info) Description 12/28/2023 9:30 AM CDT Comprehensive Visit Division of Pulmonary Medicine in [place], [place] [address] [place] [address] Jesus Ferreira M.D. [address] [place] [address] Bronchiectasis (HCC) Social History Tobacco Use Types Packs/Day Years Used Date Smoking Tobacco: Former Cigarettes S tarted: 04/26/1958 Smokeless Tobacco: Never Tobacco Cessation:Counseling Given: Not Answered Alcohol Use Standard Drinks/Week Comments Yes 2 (1 standard drink = 0.6 oz pur e alcohol) [facility] Utilities Answer Date Recorded In the past 12 months has e electric, gas, oil, or water EPS threatened to shut off services in your [...] your living situation today? 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 - 12/28/2023 9:30 AM CDT SUBJECTIVE REASON FOR CONSULT Bronchiectasis. HISTORY OF PRESENT ILLNESS Mrs. 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 The patient denies prior known history of asthma, COPD, pulmonary fibrosis, recurrent sinopulmonaryinfection, sinus surgery, or nasal polyposis. She did report whooping cough somewhere between ages 4 and 9. The last allergy evaluation was more than 40 years ago and positive to a number of allergens. She did take immunotherapy for 2 years, finished approximately 50 years ago. Family pulmonary history is otherwise noncontributory. Current history dates back to evaluation of GI-related symptoms and diverticular disease in 2020, at which time an abdominal CT scan showed lower lung field abnormalities by report and referral to Pulmonary documenting bronchiectasis. She has not required hospitalizations, emergency room visits, antibiotics, or prednisone. The patient has had relatively stable respiratory symptoms with minimal cough productive of less than a teaspoon of sputum, clear white or yellow in color, with a throat tickle. Fatigue more notable than dyspnea, the latter of which is rated 0/4 on a modified MRC scale. No pleuritic chest pain, hemoptysis, fever, chills, sweats, anorexia, weight loss, pedal edema, or syncope noted. Sinuses without purulent drainage or bloody discharge. Clear postnasal drip, intermittent, seasonal. The patient has occasional pyrosis and reflux with antacid use, approximately once every several months. No dysphagia or odynophagia. Endoscopy done many years ago with an ulcer and hiatal hernia noted. The patient denies nonspecific reactivity symptoms. She has been less active since her 's passing in September 2022. She has not used MDI's, nebulizer, PEP valve, or vest use. Patient denies tuberculosis exposure and/or hot tub use. She has a Latter Day parrot, 3 cats in her barn, 4 cats in her home, 1 dog, an Aussie-doodle age 2 female named Radha, and horses. The patient otherwise denies high-risk hobby or travel exposures. Patient has been retired since age 61. 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 She has been since October 15, 2022, [facility] She has 3 children, 2 step- children, and 5 grandchildren. Infertility difficulties were noted during her younger years. I have reviewed pertinent past medical history, social history, family history, and review of systems. Current Outpatient Medications: acetaminophen (TylenoL) 500 mg tablet, Take 1,000 mg by mouth every 6 (six) hours as needed., Disp:, Rfl: albuterol (ProAir HFA) 90 mcg/actuation inhaler, Inhale 2 puffs every 4 (four) hours as needed for wheezing or shortness of breath., Disp: 8.5 g, Rfl: 5 alendronate (Fosamax) 70 mg tablet, Take 70 mg by mouth once a week., Disp: , Rfl: atenoloL (Tenormin) 25 mg tablet, Take 25 mg by mouth daily., Disp: , Rfl: clobetasoL (Clobex) 0.05 % external spray, Apply 1 Application topically as needed., Disp: , Rfl: diazePAM (Valium) 5 mg tablet, Take 1 tablet by mouth 4 (four) times a day., Disp: , Rfl: folic acid 1 mg tablet, Take 1 mg by mouth daily., Disp: , Rfl: hydroCHLOROthiazide (HydroDiuril) 25 mg tablet, Take 25 mg by mouth daily., Disp: , Rfl: HYDROcodone-acetaminophen (Kremlin) 5-325 mg per tablet, Take 1-2 tablets by mouth every 6 (six) hours as needed., Disp: , Rfl: hyoscyamine (Levsin) 0.125 mg SL tablet, Take 125 mcg by mouth every 4 (four) hours as needed., Disp: , Rfl: methotrexate (TrexalL) 2.5 mg tablet, Take 15 mg by mouth once a week., Disp: , Rfl: nxhcjwggiqqd-bufqfchg-kfrpio (Multivitamin 50 Plus) tablet, Take 1 tablet by mouth daily., Disp: , Rfl: sodium chloride (NebuSaL) 3 % nebulizer solution, Inhale 4 mL by nebulization 2 (two) times a day as needed for cough., Disp: 240 mL, Rfl: 11 traZODone (DesyreL) 100 mg tablet, Take 50-100 mg by mouth daily., Disp: , Rfl: triamcinolone (Kenalog) 0.1 % cream, Apply 1 Application topically as needed., Disp: , Rfl: Allergies Allergen Reactions Celecoxib Rash Lisinopril Other (see comments) PN: chest pressure Other reaction(s): PN: chest pressure PN: chest pressure Mercury (Elemental) Other (see comments) . Sulfa (Sulfonamide Antibiotics) Other (see comments) and Rash PN: tongue got sore OBJECTIVE VITAL SIGNS Blood pressure 168/88, pulse 72, temperature 36.7, weight 70.7, height 158.8, oxygen saturation 98%. PHYSICAL EXAMINATION General: Pleasant female in no acute distress at rest. Eyes anicteric. HENT: Oropharynx clear. Sinuses nontender. Lymph: No cervical adenopathy. Thyroid : No thyromegaly or masses. Peripheral Vessels : Carotids 2+ bilaterally without bruits. Lungs: Clear to percussion and auscultation without wheezes, squawks, rubs or consolidative change. Cardiac: Regular rate and rhythm. Abdomen: Round, soft, nontender. Extremities: No clubbing, cyanosis, or pitting peripheral edema. Neuro: Patient was alert, interactive. Nonfocal motor exam. Preserved gait. Pupils equal, round, and reactive to light. DIAGNOSTICS Laboratory data reviewed. ASSESSMENT / PLAN It is my impression that Mrs. Barajas presents with mild bronchiectasis for a number of years with only minimal symptoms against a backdrop of reflux disease, mild rhinitis, and psoriasis now on methotrexate for many years. She has a normal spirometry, lung volumes, and diffusing capacity, and symptoms only notable for sputum that may respond to increased airway clearance. I would, for completeness, proceed with a bronchiectasis inventory, collect 3 additional sputum for AFB smear and culture bymail-in, hold mycobacterial therapy, and increase airway clearance. Esophagram will be checked and referred to GI only if abnormal, but otherwise continue with reflux precautions. Rhinitis treatment to be done on an as-needed basis as well. A number of medical issues are thus present and are as follows: #1 Bronchiectasis #2 Gastroesophageal reflux disease with hiatal hernia #3 Rule out nontuberculous mycobacterial pulmonary disease #4 Rhinitis, chronic #5 Normal spirometry, lung volumes, and diffusing capacity December 2023 #6 Hypertension #7 Psoriasis, chronic, on methotrexate #8 Hypertension #9 Tricuspid regurgitation, severe, with EF 60%-65% May 2023 #10 Osteoporosis #11 Diverticular disease #12 IBS #13 Anxiety disorder, stable #14 Right lower extremity fracture 2011 #15 Back surgery with diskectomy and laminectomy April 2023 #16 Basal cell carcinoma skin, right upper extremity #17 History of infertility #18 Macular degeneration It is my plan and recommendation, therefore, to proceed as follows: Update blood work and bronchiectasis inventory. Exhaled and nasal nitric oxide. Mail-in sputum for AFB smear and culture x3. Hold mycobacterial therapy. Avoid macrolides (azithromycin or clarithromycin) for chest exacerbations. For chest exacerbations, collect sputum for bacterial, fungal, and AFB smear and culture, with a 14-day course of antibiotic. Esophagram with referral to GI if abnormal or if symptoms worsen. Reflux precautions with p.r.n. umfy-jpk-qcmepui H2 joceline or PPI. Airway clearance with regular aerobic activity, nebulized 3% hypertonic saline, Aerobika valve, anddeep breathing with Alfredo cough versus active cycle breathing daily to twice daily and p.r.n. Hold vest use. Albuterol MDI, 2 puffs p.r.n. Respiratory therapy consultation for airway clearance education. Consider trial of Flonase or triple-drug nasal spray, 2 puffs each nostril daily to twice daily p.r.n. if postnasal drip continues. Back to [facility], Dr. Ferreira, in 1 year with repeat chest x-ray, spirometry, diffusing capacity, and induced sputum, or sooner if symptoms worsen. I reviewed these findings, impressions, and recommendations at length with Kathy and her daughter Edita present this morning. I have shared information including [place] brochures on bronchiectasis and techniques for sputum clearance as well as the All About Bronchiectasis brochure from the Bronchiectasis and NTM Initiative. I have also shared patient education materials from [place] on gastroesophageal reflux disease and the lifestyle measure table from the [place] Journal of Medicine GERD Review in 2021. They will meet with Respiratory Therapy for airway clearance education. Questions answered to the best of my ability. PATIENT EDUCATION: Learning needs assessment was performed. No learning barriers were identified. Explained diagnosis and treatment plan. Patient expressed understanding and was able to teach back. TIME: 105 minutes. Jesus Ferreira M.D. CT CT Job ID: [id number] documented in this encounter Plan of Treatment Scheduled Orders Name Type Priority Associated Diagnoses Order Schedule Acid Fast Smear for Mycobacterium Microbiology Routine Bronchiectasis ([facility]) Expected: 12/28/2023 (Approximate), Expires: 04/11/2027 Mycobacterial Culture Microbiology Routine Bronchiectasis ([facility]) Expected: 12/28/2023 (Approximate), Expires: 04/11/2027 Acid Fast Smear for Mycobacterium Microbiology Routine Bronchiectasis ([facility]) Expected: 12/28/2023 (Approximate), Expires: 04/11/2027 Mycobacterial Culture Microbiology Routine Bronchiectasis ([facility]) Expected: 12/28/2023 (Approximate), Expires: 04/11/2027 Acid Fast Smear for Mycobacterium Microbiology Routine Bronchiectasis ([facility]) Expected: 12/28/2023 (Approximate), Expires: 04/11/2027 Mycobacterial Culture Microbiology Routine Bronchiectasis ([facility]) Expected: 12/28/2023 (Approximate), Expires: 04/11/2027 Gram Stain Microbiology Routine Bronchiectasis ([facility]) Expected: 12/27/2024, Expires: 04/11/2027 Bacterial Culture, Aerobic + Susceptibility, Respiratory Microbiology Routine Bronchiectasis ([facility]) Expected: 12/27/2024, Expires: 04/11/2027 Fungal Smear Microbiology Routine Bronchiectasis ([facility]) Expected: 12/27/2024, Expires: 04/11/2027 Fungal Culture, Routine Microbiology Routine Bronchiectasis ([facility]) Expected: 12/27/2024, Expires: 04/11/2027 Acid Fast Smear for Mycobacterium Microbiology Routine Bronchiectasis ([facility]) Expected: 12/27/2024, Expires: 04/11/2027 Mycobacterial Culture Microbiology Routine Bronchiectasis ([facility]) Expected: 12/27/2024, Expires: 04/11/2027 DX Chest AP or PA and Lateral 2 Views Imaging RAD - Routine (most inpatients and all outpatients) Bronchiectasis ([facility]) Expected: 12/27/2024, Expires: 04/11/2027 Pulmonary Function Tests PFT Routine Bronchiectasis ([facility]) Expected: 12/27/2024, Expires: 03/28/2025 Scheduled Referrals Name Type Priority Associated Diagnoses Order Schedule Pulmonary Medicine - Respiratory therapy consult (clinic) Outpatient Referral Routine Bronchiectasis ([facility]) Expected: 12/28/2023, Expires: 03/28/2025 Pulmonary Medicine office visit (clinic) Outpatient Referral Routine Bronchiectasis ([facility]) Expected: 12/27/2024, Expires: 04/11/2027 documented as of this encounter Results * Sweat Chloride (01/07/2024 [...] PM CDT 01/07/2024 1:22 PM CDT Narrative [facility] - 01/07/2024 2:29 PM CDT Specimen Information: Specimen ID: [id number] Specimen Type: Sweat Specimen Collection Start Date: 01/07/2024 12:23 PM Specimen Received Date: 01/07/2024 ??1:22 PM Specimen ID: [id number] Specimen Type: Sweat Specimen Collection Start Date: 01/07/2024 ??1:08 PM Specimen Received Date: 01/07/2024 ??1:22 PM Jesus Ferreira M.D. LAB BODY FLUIDS AND STOOL S ORDERABLES Final Result [facility] [address] [place] [address], [facility] [address] [place] [address] * PUL Exhaled Nitric Oxide (01/07/2024 8:54 AM CDT) Exhaled NO Oral 27 ONBASE Parts per billion (ULN) 39 ONBASE ENOComment Patient takes Albuterol and NaCl 3% PRN ONBASE Jesus Ferreira M.D. PFT ORDERABLES Final Res ult Performing Organization Address City/[facility]/ZIP Co de Phone Number ONBASE NA * Cystic Fibrosis, CFTR Gene, [...] of the initial analysis when appropriate. See www.World Reviewer (Test ID CFMP) for additional information about [...] ancestry. Ancestry ?Prior Risk ?Residual Risk -------- Cymro ? 05/20 ? 401 Ashkenazi Episcopalian ?05/20 ? 481 ?65 ? 493 Cymro ? 46 ? 347 Cymro* ? 1255 General [place] Population ?? 35 ? 244 *Does not apply to individuals of Maltese ancestry Residual risk after negative carrier screen [...] not detected by this assay. Contact the [facility] at [phone] for further discussion regarding this option. A [...] All detected variants are evaluated according to [employer] recommendations. [...] allogenic donors will interfere with testing. Call [facility] for instructions for testing patients who have received a bone marrow transplant. An online research opportunity called Genome[employer]reathernect ([email or web address]), a project of [employer], is available for the recipient of this genetic test. This patient registry collects deidentified genetic and health information to advance the knowledge of genetic variants. [facility] is a collaborator of [employer]. This may not be applicable for all tests. TEST CLASSIFICATION This test was developed and its performance characteristics determined by [facility] in a manner consistent with CLIA requirements. This test has not been cleared or approved by the U.S. Food and Drug Administration. Blood (Blood, Peripheral Draw) 12/28/2023 12:21 PM CDT 12/28/2023 1:20 PM CDT Jesus Ferreira M.D. LAB GENETIC TESTING Final Result Performing Organization Address [facility] Co de Phone Number [facility] [address] [place] [address], [facility] [address] [facility] [address] [place] [address] * Cdzau-2-Pyitanaxwgu Proteotype S/Z by LC-MS/MS (12/28/2023 12:21 PM CDT) Pathologist [facility] Cadmp-2-Ffrshqgxhf n, S 156 100 - 190 mg/dL 12/29/2023 8:45 AM CDT [facility] Comment: ----ADDITIONAL INFORMATION---- Method: Nephelometry Interpretation S Mutation: Negative Z Mutation: Negative Results most consistent with MM phenotype. 12/31/2023 3:22 PM CDT [facility] Comment: ----ADDITIONAL INFORMATION---- This test was developed and its performance characteristics determined by [facility] in a manner consistent with CLIA requirements. This test has not been cleared or approved by the U.S. Food and Drug Administration. Blood (Blood, Venous) 12/28/2023 12:21 PM CDT 12/29/2023 6:40 AM CDT Jesus Ferreira M.D. LAB BLOOD NON ADD-ON Amee l Result Performing Organization Address City/[facility]/ZIP Co de Phone Number [facility] [address] [place] [address] [facility] [address] [place] [address] [facility] [address] [place] [address] [place] [address] * Immunoglobulin E (IgE) (12/28/2023 12:21 PM CDT) Immunoglobulin E (IgE), S 8.6 <=214 kU/L 01/01/2024 11:35 AM CDT [facility] Blood (Blood, Venous) 12/28/2023 12:21 PM CDT 01/01/2024 8:40 AM CDT us Jesus Ferreira M.D. LAB BLOOD ADD-ON Final Re sult [facility] [address] [place] [address] [facility] [address] [place] [address] * CBC with Differential, Blood (12/28/2023 12:21 [...] ADD-ON Final Re sult Performing Organization Address City/[facility]/ZIP Co de Phone Number [facility] [address] [place] [address], [facility] [address] [place] [address] [facility] [address] [place] [address] * (ABNORMAL) IgG Subclasses (12/28/2023 12:21 PM [...] - 121.0 mg/dL 12/28/2023 5:16 PM CDT [facility] Blood (Blood, Venous) 12/28/2023 12:21 PM CDT 12/28/2023 4:23 PM CDT Jesus Ferreira M.D. LAB BLOOD ADD-ON Final Re sult [facility] [address] [place] [address] [facility] [address] [place] [address] documented in this encounter Visit Diagnoses Diagnosis Bronchiectasis (HCC) Bronchiectasis (HCC) documented in this encounter Additional Health Concerns Infection Onset Date Last Indicated Resolved Time Protective Environment 12/24/2023 12/24/2023 documented as of this encounter
--- OUTSIDE RECORDS SUMMARY | 2024-02-23 10:02 | XMS_ITS | Encounter Summary ---
Author Organization [facility] Address [address] [place] [id number] Care Team Providers Care Mail Superintendent Name Role Phone Unavailable Primary Care Provider Unavailabl e Reason for Referral * MRI/CAT/PET Scan (Routine) - Closed Specialty Diagnoses / Procedures Referred By Contac t Referred To Contact Radiology Diagnoses Bronchiectasis (HCC) Procedures CT Chest without IV Contrast Jesus Ferreira M.D. 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 Gender Identity Female 12/21/2023 3:51 PM CDT Sexual Orientation Straight 12/21/2023 3: 51 PM CDT documented as of this encounter Plan of Treatment Not on file documented as of this encounter Results * Pulmonary Function Tests (12/28/2023 7:46 AM CDT) PostFVC 2.34 L 12/28/2023 2:29 PM CDT [facility] PostFEV1 1.81 L 12/28/2023 2:29 PM CDT [facility] FEV1/FVC POST 77.08 % 12/28/2023 2:29 PM CDT [facility] FEF 25-75 % POST 1.12 L/s 12/28/2023 2:29 PM CDT [facility] PEF POST 7.40 L/s 12/28/2023 2:29 PM CDT [facility] PIF POST 3.23 L/s 12/28/2023 2:29 PM CDT [facility] FEF 50 % FIF 50 POST 64.06 % 12/28/2023 2:29 PM CDT [facility] FET POST 10.49 sec 12/28/2023 2:29 PM CDT [facility] DLCO 15.15 ml/(min*mm Hg) 12/28/2023 2:29 PM CDT [facility] VA 4.21 L 12/28/2023 2:29 PM CDT [facility] TLC 4.31 L 12/28/2023 2:29 PM CDT [facility] FRCPLETH PROVBASE 2.47 L 12/28/2023 2:29 PM CDT [facility] RV 1.93 L 12/28/2023 2:29 PM CDT [facility] RV % TLC PRE 44.82 % 12/28/2023 2:29 PM CDT [facility] FVC 2.37 L 12/28/2023 2:29 PM CDT [facility] FEV1 1.78 L 12/28/2023 2:29 PM CDT [facility] FEV1/FVC 74.82 % 12/28/2023 2:29 PM CDT [facility] OGJ85-54% 1.05 L/s 12/28/2023 2:29 PM CDT [facility] PEF PRE 6.32 L/s 12/28/2023 2:29 PM CDT [facility] PIF PRE 3.26 L/s 12/28/2023 2:29 PM CDT [facility] FEF 50 % FIF 50 PRE 78.05 % 12/28/2023 2:29 PM CDT [facility] FET PRE 10.08 sec 12/28/2023 2:29 PM CDT [facility] SUBSTANCE POST Albuterol 12/28/2023 2:29 PM CDT [facility] 12/28/2023 7:46 AM CDT Impressions [facility] - 12/28/2023 2:29 PM CDT Normal study. There is no immediate bronchodilator response. Narrative Procedure Note Tristin Dawn M.D. - 12/28/2023 IMPRESSION: Normal study. There is no immediate bronchodilator response. Jesus Ferreira M.D. PFT ORDERABLES Final Res ult [facility] NA * Gram Stain (12/28/2023 7:31 AM CDT) Gram Stain Upper respiratory/ora l microbiota White blood cells, Many Epithelial cells, Few 12/28/2023 12:16 PM CDT DTL Sputum (Sputum, Induced) 12/28/2023 7:31 AM CDT 12/28/2023 9:27 AM CDT Comment:Specimen Source Site : Sputum Narrative [facility] - 12/28/2023 12:16 PM CDT Fungal specimen plated for culture, volume inadequate for optimal recovery. Jesus Ferreira M.D. LAB MICROBIOLOGY - GENERA L ORDERABLES Final Result [facility] 200 [place] [address], [facility] [address] [place] [address] * Bacterial Culture, Aerobic + Susceptibility, Respiratory (12/28/2023 7:31 AM CDT) Bacterial Culture, Aerobic, Resp Upper respiratory/or al microbiota 12/30/2023 8:27 AM CDT DTL Sputum (Sputum, Induced) 12/28/2023 7:31 AM CDT 12/28/2023 9:27 AM CDT Comment:Specimen Source Site : Sputum Narrative [facility] - 12/30/2023 8:27 AM CDT Fungal specimen plated for culture, volume inadequate for optimal recovery. Jesus Ferreira M.D. LAB MICROBIOLOGY - GENERA L ORDERABLES Final Result Performing Organization Address City/[facility]/ZIP Co de Phone Number [facility] 200 [place] [address], [facility] 200 [place] [address] * Fungal Smear (12/28/2023 7:31 AM CDT) Fungal Smear Negative. 12/28/2023 1:47 PM CDT DT Sputum (Sputum, Induced) 12/28/2023 7:31 AM CDT 12/28/2023 9:27 AM CDT Comment:Specimen Source Site : Sputum Narrative [facility] - 12/28/2023 1:47 PM CDT Fungal specimen plated for culture, volume inadequate for optimal recovery. Jesus Ferreira M.D. LAB MICROBIOLOGY - GENERA L ORDERABLES Final Result [facility] 200 [place] [address], [facility] [address] [place] [address] * (ABNORMAL) Fungal Culture, Routine (12/28/2023 7:31 [...] CDT Comment:Specimen Source Site : Sputum Narrative [facility] - 02/07/2024 10:30 AM CDT Fungal specimen plated for culture, volume inadequate for optimal recovery. Jesus Ferreira M.D. LAB MICROBIOLOGY - GENERA L ORDERABLES Final Result [facility] [address] [place] [address], [facility] [address] [place] [address] * CT Chest without IV Contrast (12/24/2023 [...] some peribronchovascular parenchymal opacities. Jesus Ferreira M.D. IMG CT PROCEDURES Final R esult documented in this encounter Visit Diagnoses Diagnosis Bronchiectasis (HCC) Bronchiectasis (HCC) Bronchiectasis (HCC) documented in this encounter Additional Health Concerns Infection Onset Date Last Indicated Resolved Time Protective Environment 12/24/2023 12/24/2023 documented as of this encounter
--- OUTSIDE RECORDS SUMMARY | 2024-02-23 10:02 | XMS_ITS | Encounter Summary ---
Author Organization [facility] Address [address] [place] [id number] Care Team Providers Care Genetics Nurse Name Role Phone Unavailable Primary Care Provider Unavailabl e Encounter Details Date Type Department Care Team (Latest Contact Info) Description 12/28/2023 11:02 AM CDT - 12/28/2023 11:34 AM CDT Hospital Encounter Department of Laboratory Medicine and Pathology, [facility] in [place], [place] [address] [place] [phone] Jesus Ferreira M.D. [address] [place] [phone] Bronchiectasis (HCC) Discharge Disposition: Home or Self Care Social History Tobacco Use Types Packs/Day Years Used Date Smoking Tobacco: Former Cigarettes S tarted: 04/26/1958 Smokeless Tobacco: Never Alcohol Use Standard Drinks/Week Comments Yes 2 (1 standard drink = 0.6 oz pur e alcohol) [facility] Utilities Answer Date Recorded In the past 12 months has [employer], gas, oil, or water company threatened to [...] your living situation today? 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 HYDROcodone-acet aminophen ([place]) 5-325 mg per tablet Take 1-2 tablets [...]
--- NOTE | 2024-02-23 10:15 | CRLHL7_ITS ---
For Patients: As a result of the Century Cures Act, medical imaging exams and procedure reports are released immediately into your electronic medical record. You may view this report before your referring provider. If you have questions, please contact your health care provider. BILATERAL SCREENING MAMMOGRAM WITH COMPUTER-AIDED DETECTION AND TOMOSYNTHESIS TECHNIQUE: CC and MLO views were obtained. These mammographic images have been obtained using full-field digital technique. These mammographic images were interpreted with the benefit of computer-aided detection. Breast Tomosynthesis was used in this interpretation. COMPARISON FILM: 02/16/23, 02/04/22, 01/24/22. FINDINGS: There are scattered areas of fibroglandular density IMPRESSION: There is no radiographic evidence for malignancy. ASSESSMENT: BI-RADS Category 1: Negative RECOMMENDATION: Routine screening mammogram in 1 year. A lay language report of this examination will be provided to the patient. Oh Angulo M.D. Diagnostic Radiologist [email or web address] NAVEEN/Dictated by: Oh Angulo MD @ 02/23/2024 11:14:00 AM (Electronically Signed)
== END 2024-02-23 09:59 | disposition home or self-care (01) ==
LOC: MAMMO 09:59
PROVIDERS: PCP Internal Medicine; Visit Provider Internal Medicine
DX: Z12.31 Encounter for screening mammogram for malignant neoplasm of breast (principal)
CPT/HCPCS: 77063; 77067

== ENCOUNTER 2024-02-25 08:17 | Outpatient (CLI) | payer MEDICARE, OTHER, SELFPAY | END 2024-02-25 08:18 | disposition home or self-care (01) | LOC: NFLDREF 02-28 12:49 | PROVIDERS: PCP Internal Medicine; Referring Provider Internal Medicine; Visit Provider Internal Medicine | DX: M85.80 Other specified disorders of bone density and structure, unspecified site (principal); E78.9 Disorder of lipoprotein metabolism, unspecified | CPT/HCPCS: 80061; 82306 ==

== ENCOUNTER 2024-04-11 06:11 | Day surgery (SDC) | payer MEDICARE, OTHER, SELFPAY ==
[2024-04-11] VITALS (7 sets, daily range): BP systolic 133–160; BP diastolic 66–90; PULSE 60–73; RESP 14–20; TEMP 36.5–36.6; O2SAT 98–100; BMI 28.3
[2024-04-11] MEDS: BUPIVACAINE 0.5 %/EPI 1:200K INJECTION (07:20)
[2024-04-11] MEDS: LIDOCAINE 1%-EPI 1:100,000 20 ML INFILTRATI (07:20)
--- NOTE | 2024-04-11 07:46 | PM.ORPRC ---
Procedure Note Date of procedure: 04/11/24 Procedure: Preop diagnosis: Right hand ring finger stenosing tenosynovitis Postop diagnosis: Right hand ring finger stenosing tenosynovitis Procedure: Right hand ring finger A1 cait release Anesthesia: Local Surgeon: Nathan Wadsworth MD recruitment assistant: DANILO Bailon EBL: 0 mL Complications: None Specimens: None Drains: None Preoperative antibiotics: None Indications: The patient has a history of right upper extremity ring finger painful catching and locking. Despite appropriate non operative management including flexor tendon sheath corticosteroid injections they continue to have symptoms. Operative intervention was recommended. The risks, benefits alternatives and expected outcomes were discussed in detail. These included but were not limited to: Infection, bleeding, injury to blood vessel or nerve, venous thromboembolism. All questions were answered to their satisfaction. The patient was placed supine on the operating room table. Local anesthesia was established with 0.5% Marcaine with epinephrine and 2% lidocaine with epinephrine. The hand was prepped and draped in usual sterile fashion. A transverse incision was made centered over the base of the ring finger in the distal palmar crease. Subcutaneous dissection was taken through the palmar fascia to the flexor tendons with the tenotomy scissors. The A1 cait was released with the 15 blade and tenotomy scissors. Active flexion and extension of the finger shows no catching or locking, no bowstringing of the flexor tendons. The wound was closed with interrupted nylon sutures. A dry dressing was applied. Sponge and needle counts were correct x 2. The patient tolerated the procedure well, there were no apparent complications. They were sent to same day surgery in satisfactory condition. Plan: Use of the hand as tolerates. Discontinue the intraoperative dressing on postoperative day 3 and may get the wound wet as tolerates. Follow up in the office in 2 weeks for a wound check and suture removal.
== END 2024-04-11 08:09 | disposition home or self-care (01) ==
PROVIDERS: PCP Internal Medicine; Visit Provider Orthopaedic Surgery
PROC: (CPT 26055; principal; 2024-04-11 07:15)
DX: M65.341 Trigger finger, right ring finger (principal); M65.841 Other synovitis and tenosynovitis, right hand
CPT/HCPCS: 26055; J3490

== ENCOUNTER 2025-03-02 09:32 | Outpatient (CLI) | payer MEDICARE, OTHER, SELFPAY | END 2025-03-02 09:33 | disposition home or self-care (01) | LOC: NFLDREF 03-07 07:53 | PROVIDERS: PCP Internal Medicine; Referring Provider Internal Medicine; Visit Provider Internal Medicine | DX: M85.80 Other specified disorders of bone density and structure, unspecified site (principal); I10 Essential (primary) hypertension | CPT/HCPCS: 80048; 82306 ==

== ENCOUNTER 2025-03-06 10:02 | Outpatient (CLI) | payer OTHER, SELFPAY ==
--- NOTE | 2025-03-06 10:15 | CRLHL7_ITS ---
For Patients: As a result of the Century Cures Act, medical imaging exams and procedure reports are released immediately into your electronic medical record. You may view this report before your referring provider. If you have questions, please contact your health care provider. INDICATION: BILATERAL SCREENING MAMMOGRAM, ASYMPTOMATIC 80 Y/O FEMALE COMPARISON: 02/23/2024, 02/16/2023, 02/04/2022 TECHNIQUE: Digital mammogram in CC and MLO projections including computer-aided detection (CAD) and tomosynthesis. BREAST COMPOSITION: There are scattered areas of fibroglandular density. FINDINGS: No suspicious findings. ASSESSMENT: BI-RADS 1 Negative RECOMMENDATION: Annual screening mammogram. A lay language report of this examination will be provided to the patient. Dictated by: Oh Angulo MD @ 03/06/2025 12:50:06 (Electronically Signed)
== END 2025-03-06 10:03 | disposition home or self-care (01) ==
LOC: MAMMO 10:03
PROVIDERS: PCP Internal Medicine; Visit Provider Internal Medicine
DX: Z12.31 Encounter for screening mammogram for malignant neoplasm of breast (principal)
CPT/HCPCS: 77063; 77067